=== PATIENT | female | born 1945 | race Caucasian/White ===

== ENCOUNTER → 2020-06-30 08:08 | Outpatient (CLI) | payer MEDICARE, OTHER, SELFPAY ==
--- NOTE | ~2020-06-30 | MM_ITS ---
EXAMINATION: MM diagnostic orly BI w maynor HISTORY: Breast tenderness. No discrete palpable abnormality. TECHNIQUE: Additional 3-D tomosynthesis images of the breasts were performed and synthetic 2-D images were generated. CAD analysis was submitted and interpreted. COMPARISON: 01/24/2016 BREAST PARENCHYMAL COMPOSITION: Breast composed of scattered areas of fibroglandular density. FINDINGS: There are no suspicious masses, calcifications or architectural distortion in either breast to suggest malignancy. IMPRESSION: 1. No mammographic evidence for malignancy in either breast. 2. Routine yearly screening mammogram and regular clinical breast examination are recommended. BI-RADS Category 1: Negative Reviewed, dictated and finalized at location A. TENDER IMPRESSION: 1. No mammographic evidence for malignancy in either breast. 2. Routine yearly screening mammogram and regular clinical breast examination a re recommended. BI-RADS Category 1: Negative
== END ==
PROVIDERS: PCP Family Medicine; Visit Provider Nurse Practitioner
DX: N64.4 Mastodynia (principal)
CPT/HCPCS: 77062; 77066; G0279

== ENCOUNTER → 2020-08-12 10:21 | Outpatient (CLI) | payer MEDICARE, OTHER, SELFPAY ==
--- NOTE | ~2020-08-12 | DEXA_ITS ---
Bone Density Report Name: Dee Benoit Age: 74 Sex: Female Ethnicity: White Date of : 1945 Indication: postmenopausal; screening for osteoporosis; height loss; asthma or emphysema; hysterectomy; Referring Provider: ESPERANZA, HERACLIO Study: Bone densitometry was performed. Exam Date: August 12, 2020 Accession number: [id number] Bone Density: Region BMD T-score Z-score Classification AP Spine (L1, L2, L3) 0.781 -2.2 0.2 Osteopenia Femoral Neck (Left) 0.536 -2.8 -0.7 Osteoporosis Total Hip (Left) 0.745 -1.6 0.2 Osteopenia Femoral Neck (Right) 0.541 -2.8 -0.7 Osteoporosis Total Hip (Right) 0.705 -1.9 -0.2 Osteopenia Total Hip Mean 0.725 -1.8 0.0 Osteopenia World Health Organization criteria for BMD impression classify patients as: Normal (T-score at or above -1.0), Osteopenia (T-score between -1.0 and -2.5), or Osteoporosis (T-score at or below -2.5). 10-year Fracture Risk: FRAX not reported because: Some T-score for Spine Total or Hip Total or Femoral Neck at or below -2.5 Clinical Information Provided by Patient: Has used the following medications: Vitamin D, Calcium Has the following medical conditions: Asthma or Emphysema, Hysterectomy Patient maximum height was 66 Menopause Age: 40 No regular weight bearing exercise Does not regularly consume dairy products Drinks caffeinated beverages Onset of menses at age 14 Number of children 1 Missed period for more than 6 months in a row Impression: The patient has osteoporosis, based on the Left Femoral Neck T-score. Discussion: INCREASED RISK OF FRACTURE. BONE DENSITY IS UNDESIRABLY LOW AT ONE OR MORE SKELETAL SITES, CONSISTENT WITH POSTMENOPAUSAL OSTEOPOROSIS. This patient's lowest T-score meets the World Health Organization's (WHO) criteria for osteoporosis at one or more sites (T-score -2.5 or below). In untreated patients, the risk of osteoporotic fracture increases approximately two-fold for each 1.0 SD decrease in T-score. Low bone density is not the only risk factor for fracture; also consider factors such as patient's age, frailty or poor health, risk of falling, risk of injury, previous osteoporotic fracture, family history of osteoporosis, cigarette smoking, low body weight, etc. Not everyone with low bone mineral density has osteoporosis; osteomalacia and other metabolic bone disorders should also be considered. Patients who have osteoporosis should be evaluated for specific diseases and conditions (secondary causes) that may cause or contribute to bone loss. The [place] Association [employer] Clinical Endocrinologists (AACE) and National Osteoporosis Foundation (NOF) recommend pharmacologic intervention for all postmenopausal women whose T-score is in this range. The patient should follow a healthful lifestyle (good nutrition with adequat
== END ==
PROVIDERS: PCP Family Medicine; Visit Provider Nurse Practitioner
DX: Z78.0 Asymptomatic menopausal state (principal); M81.0 Age-related osteoporosis without current pathological fracture; M85.851 Other specified disorders of bone density and structure, right thigh; M85.852 Other specified disorders of bone density and structure, left thigh
CPT/HCPCS: 77080

== ENCOUNTER → 2021-07-21 10:56 | Outpatient (CLI) | payer MEDICARE, OTHER, SELFPAY ==
--- NOTE | ~2021-07-21 | MM_ITS ---
EXAMINATION: MM screening olry BI w maynor HISTORY: Screening TECHNIQUE: Craniocaudal and mediolateral oblique 3-D tomosynthesis images were obtained and synthetic 2-D images were generated. CAD analysis was submitted and interpreted. COMPARISON: Comparison to multiple prior studies sequentially, with oldest reviewed study dated 01/23. BREAST PARENCHYMAL COMPOSITION: There are scattered areas of fibroglandular density. FINDINGS: There is no evidence of suspicious mass, calcification, or architectural distortion to sugg est malignancy in either breast. There has been no suspicious interval change. IMPRESSION: 1. No mammographic evidence of malignancy. 2. Recommend routine screening mammography in one year. BI-RADS Category 1: Negative Reviewed, dictated and finalized at location A. 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
== END ==
PROVIDERS: PCP Family Medicine; Visit Provider Nurse Practitioner
DX: Z12.31 Encounter for screening mammogram for malignant neoplasm of breast (principal)
CPT/HCPCS: 77063; 77067

== ENCOUNTER → 2021-10-24 13:09 | Outpatient (CLI) | payer MEDICARE, OTHER, SELFPAY ==
--- NOTE | ~2021-10-24 | MR_ITS ---
EXAMINATION: MR lumbar spine wo con DATE: 10/24/2021 13:56 INDICATION: Lumbar radiculopathy. TECHNIQUE: Magnetic resonance imaging (MRI) of the lumbar spine was performed without intravenous con trast. Sequences included sagittal T2-weighted FSE, sagittal T2-weighted FS FSE, sagittal T1-weighted FSE, and axial T2-weighted FSE. COMPARISON: Lumbar spine MRI 12/01/2010 FINDINGS: There is 7 degrees levocurvature of lumbar spine. There are changes of anterior and posteri or fusion procedures at L5-S1 with discectomy, interbody device, and pedicle screws. Vertebral body h eights are normal. There is moderately decreased disc height at L4-L5 with endplate remodeling. The d istal spinal cord signal intensity is normal. The conus medullaris is at T12-L1. The following disc l evels are specifically discussed: L1-L2: The disc is bulging with superimposed right central extrusion. There is mild bilateral facet j oint osteoarthritis. There is mild bilateral neural foraminal stenosis. There is mild central canal s tenosis. L2-L3: The disc is bulging and has an annular fissure. There is mild right facet joint osteoarthritis . There is mild bilateral neural foraminal stenosis. There is mild central canal stenosis. L3-L4: The disc is bulging and has an annular fissure. There is mild bilateral facet joint osteoarthr itis. There is mild bilateral neural foraminal stenosis. There is mild central canal stenosis. L4-L5: The disc is bulging and has an annular fissure. There is severe bilateral facet joint osteoart hritis. There is moderate bilateral neural foraminal stenosis. There is mild central canal stenosis w ith posterior decompression. L5-S1: There is no facet joint hypertrophy. There is no neural foraminal stenosis. There is no centra l canal stenosis. There are changes of posterior decompression. IMPRESSION: 1. Moderate lumbar spondylosis, worsened from 12/01/2010. 2. Anterior and posterior fusion procedures at L5-S1. Reviewed, dictated and finalized at location A.
== END ==
PROVIDERS: PCP Family Medicine; Visit Provider Nurse Practitioner Adult Health
DX: M54.16 Radiculopathy, lumbar region (principal); M47.816 Spondylosis without myelopathy or radiculopathy, lumbar region; Z98.1 Arthrodesis status
CPT/HCPCS: 72148

== ENCOUNTER → 2021-10-31 13:43 | Outpatient (CLI) | payer MEDICARE, OTHER, SELFPAY ==
--- NOTE | ~2021-10-31 | XR_ITS ---
EXAMINATION: XR hip RT min 2V DATE: 10/31/2021 14:01 INDICATION: Right hip pain. TECHNIQUE: 2 views of right hip were obtained. COMPARISON: None. FINDINGS: Bone alignment is normal. No fracture. There are changes of anterior and posterior fusion p rocedures at L5-S1. There is mild right hip osteoarthritis. IMPRESSION: 1. Mild right hip osteoarthritis. Reviewed, dictated and finalized at location B.
== END ==
PROVIDERS: PCP Family Medicine; Visit Provider Nurse Practitioner Adult Health
DX: M25.551 Pain in right hip (principal); M16.11 Unilateral primary osteoarthritis, right hip
CPT/HCPCS: 73502

== ENCOUNTER 2022-06-16 08:09 | Outpatient (CLI) | payer MEDICARE, OTHER, SELFPAY ==
[2022-06-16 19:17] LABS: Basophils Absolute Auto 0.1 K/mm3 (0.0-0.1); Basophils Percent Auto 0.6 % (0.2-1.2); Eosinophils Absolute Auto 0.2 K/mm3 (0-0.3); Eosinophils Percent Auto 2.3 % (0-4.4); Immature Granulocyte Absolute 0.02 K/mm3 (0.00-0.031); Immature Granulocyte Percent A 0.2 % (0-0.5); Lymphocytes Absolute Auto 2.93 K/mm3 (0.9-3.2); Lymphocytes Percent Auto 36.2 % (18.3-44.2); Mean Corpuscular HGB Conc 30.8 g/dl (32-36); Mean Corpuscular Hemoglobin 28.5 pg (26-34); Mean Corpuscular Volume 92.6 fl (80-100); Mean Platelet Volume 9.9 fl (7.4-10.4); Monocytes Absolute Auto 0.6 K/mm3 (0.1-0.6); Monocytes Percent Auto 7.8 % (2.6-8.5); Neutrophils Absolute Auto 4.3 K/mm3 (1.3-6.7); Neutrophils Percent Auto 52.9 % (45.5-73.1); Platelet Count Result 377 k/mm3 (150-375); Red Blood Count 4.21 M/mm3 (4.2-5.4); Red Cell Distribution Width 14.1 % (11.5-14.5); White Blood Count 8.1 K/mm3 (4.5-10.0)
[2022-06-16 19:21] LABS: Alanine Aminotransferase 18 U/L (6-35); Alkaline Phosphatase 65 U/L (38-126); Anion Gap 0 mmol/L (8-16); Aspartate Amino Transferase 72 U/L (14-36); Bilirubin,Total 0.3 mg/dL (0.2-1.3); Blood Urea Nitrogen 15 mg/dL (7-17); Calcium 9.1 mg/dL (8.4-10.2); Carbon Dioxide 36 mmol/L (22-30); Chloride 104 mmol/L (98-107); Cholesterol 175 mg/dL (0-200); Estimated Glomerular Filt Rate > 60; Glucose 102 mg/dL (65-110); HDL Direct 26 mg/dL; Sodium 140 mmol/L (137-145); Triglycerides 196 mg/dL (<150)
[2022-06-16 19:32] LABS: LDL Cholesterol Direct 105 mg/dL
[2022-06-16 19:36] LABS: Vitamin D 25 Hydroxy 90.6 ng/mL
[2022-06-16 19:47] LABS: Microalbumin Urine Random 55.1 mg/L (0-16.7)
[2022-06-16 20:18] LABS: Creatinine Urine 381.4 mg/dL; MALB Creatinine Ratio 14.4 mg/g (0-30)
[2022-06-16 20:31] LABS: Hemoglobin A1C 6.4 % (<5.7)
== END 2022-06-16 08:10 | disposition home or self-care (01) ==
LOC: ANHGOSHLAB 08:12
PROVIDERS: PCP Family Medicine; Visit Provider Physician Assistant
DX: E11.9 Type 2 diabetes mellitus without complications (principal); M81.0 Age-related osteoporosis without current pathological fracture; I10 Essential (primary) hypertension; F41.1 Generalized anxiety disorder; Z95.5 Presence of coronary angioplasty implant and graft; Z11.59 Encounter for screening for other viral diseases; Z79.899 Other long term (current) drug therapy
CPT/HCPCS: 36415; 80053; 80061; 82043; 82306; 83036; 84443; 85025

== ENCOUNTER 2022-09-01 08:12 | Outpatient (CLI) | payer MEDICARE, OTHER, SELFPAY ==
[2022-09-01 09:21] LABS: Basophils Absolute Auto 0.1 K/mm3 (0.0-0.1); Basophils Percent Auto 0.7 % (0.2-1.2); Eosinophils Absolute Auto 0.2 K/mm3 (0-0.3); Eosinophils Percent Auto 2.1 % (0-4.4); Hematocrit 42.7 % (37.0-47.0); Hemoglobin 13.5 g/dL (12.0-15.0); Immature Granulocyte Absolute 0.02 K/mm3 (0.00-0.031); Immature Granulocyte Percent A 0.3 % (0-0.5); Lymphocytes Absolute Auto 2.61 K/mm3 (0.9-3.2); Lymphocytes Percent Auto 34.8 % (18.3-44.2); Mean Corpuscular HGB Conc 31.6 g/dl (32-36); Mean Corpuscular Hemoglobin 28.6 pg (26-34); Mean Corpuscular Volume 90.5 fl (80-100); Mean Platelet Volume 9.9 fl (7.4-10.4); Monocytes Absolute Auto 0.5 K/mm3 (0.1-0.6); Monocytes Percent Auto 7.2 % (2.6-8.5); Neutrophils Absolute Auto 4.1 K/mm3 (1.3-6.7); Neutrophils Percent Auto 54.9 % (45.5-73.1); Platelet Count Result 322 k/mm3 (150-375); Red Blood Count 4.72 M/mm3 (4.2-5.4); Red Cell Distribution Width 14.5 % (11.5-14.5); White Blood Count 7.5 K/mm3 (4.5-10.0)
[2022-09-01 09:32] LABS: Alanine Aminotransferase 24 U/L (6-35); Albumin Level 4.5 g/dL (3.5-5.1); Alkaline Phosphatase 77 U/L (38-126); Anion Gap 5 mmol/L (8-16); Aspartate Amino Transferase 30 U/L (14-36); Bilirubin,Total 0.5 mg/dL (0.2-1.3); Blood Urea Nitrogen 15 mg/dL (7-17); Calcium 9.4 mg/dL (8.4-10.2); Carbon Dioxide 31 mmol/L (22-30); Chloride 103 mmol/L (98-107); Cholesterol 223 mg/dL (0-200); Estimated Glomerular Filt Rate > 60; Glucose 103 mg/dL (65-110); HDL Direct 39 mg/dL; Potassium 4.4 mmol/L (3.4-5.0); Sodium 139 mmol/L (137-145); Triglycerides 197 mg/dL (<150)
[2022-09-01 09:43] LABS: LDL Cholesterol Direct 129 mg/dL
[2022-09-06 04:14] LABS: Gastrin <15 pg/mL (<=100)
== END 2022-09-01 08:13 | disposition home or self-care (01) ==
PROVIDERS: PCP Family Medicine; Visit Provider Physician Assistant
DX: I10 Essential (primary) hypertension (principal); E78.5 Hyperlipidemia, unspecified; I25.118 Atherosclerotic heart disease of native coronary artery with other forms of angina pectoris; I45.10 Unspecified right bundle-branch block; K44.9 Diaphragmatic hernia without obstruction or gangrene; K21.00 Gastro-esophageal reflux disease with esophagitis, without bleeding
CPT/HCPCS: 36415; 80053; 80061; 82941; 85025

== ENCOUNTER 2022-10-10 08:40 | Outpatient (CLI) | payer MEDICARE, OTHER, SELFPAY ==
--- NOTE | ~2022-10-10 | CT_ITS ---
CT of the Abdomen and Pelvis: Indication: Abdominal pain Technique: 2.5 mm axial scans were obtained through the abdomen and pelvis following intravenous adm inistration of 100 cc of Omnipaque 350. Dose reduction technique was used on this scan by utilizing a utomated exposure control and iterative reconstruction technique. The dose-length product (DLP) was 6 01.68 mGy-cm. Findings: Scans through the lung bases demonstrate 5 mm semisolid right middle lobe pulmonary nodule (axial image 5). The liver, spleen, pancreas, adrenals and kidneys are within normal limits.. Cholecystectomy clips ar e present. There are atherosclerotic calcifications of the aorta. No lymphadenopathy. No bowel obstruction or bowel wall thickening. There is no evidence to suggest acute appendicitis. Sm all fat-containing umbilical hernia noted. Images through the pelvis were performed. Urinary bladder unremarkable. Patient is post hysterectomy. No pelvic mass seen. No ascites. Impression: Small fat-containing umbilical hernia. 5 mm semisolid nodule in the right middle lobe. According to Fleischner Society criteria, no further follow-up is required. Reviewed, dictated and finalized at location . Impression: Small fat-containing umbilical hernia. 5 mm semisolid nodule in the right middle lobe. According to Fleischner Society criteria, no further follow-up is required.
[2022-10-10 09:17] LABS: Estimated Glomerular Filt Rate 54
== END 2022-10-10 08:41 | disposition home or self-care (01) ==
LOC: ANHIMG 08:42
PROVIDERS: PCP Nurse Practitioner Family; Visit Provider Nurse Practitioner
DX: R10.13 Epigastric pain (principal); K42.9 Umbilical hernia without obstruction or gangrene; R91.1 Solitary pulmonary nodule
CPT/HCPCS: 74177; Q9967

== ENCOUNTER 2023-03-29 07:15 | Outpatient (RCR) | payer MEDICARE, OTHER, SELFPAY | END 2023-03-29 10:02 | disposition home or self-care (01) | LOC: ANHCPREHAB 07:15 | PROVIDERS: PCP Family Medicine; Visit Provider Internal Medicine | DX: Z95.5 Presence of coronary angioplasty implant and graft (principal) | CPT/HCPCS: 93798 ==

== ENCOUNTER 2023-04-26 00:20 | Observation (INO) | payer MEDICARE, OTHER, SELFPAY ==
[2023-04-26] VITALS (21 sets, daily range): BP systolic 112–176; BP diastolic 57–84; PULSE 44–67; RESP 12–18; TEMP 36.2–36.4; O2SAT 93–100; BMI 26.6
--- NOTE | 2023-04-26 | EST_ITS ---
Patient Info Name: Dee Benoit Age: 77 years : 1945 Gender: Female Ht: 65 in Wt: 154 lbs BSA: 1.80 m2 HR: 52 bpm BP: 137 / 72 mmHg Heart Rhythm: Sinus Rhythm Exam Date: 04/26/2023 1:30 PM Exam Location: [facility] Stress Patient Status: Outpatient Admit Date: 04/26/2023 Staff Ordering Physician: Bree Peterson MD Attending Provider: Abram Henry MD Exercise Technologist: Anju Hay CT Nurse: Karen Wheeler APN Exam Type: CA stress test treadmill w NM Study Info Indications R07.89 - Other chest pain A nuclear stress test was performed. Summary 1. No exercise-induced chest discomfort. 2. Normal heart rate response to exercise. 3. Good exercise tolerance. 4. No abnormal ST-T wave changes. 5. Nuclear test results to follow. Protocol: [facility] ECG Details Stage: REST Duration (min): 1 min : 59 sec Speed (mph): 0.0 Grade (%): 0 HR (bpm): 57 SBP (mmHg): 137 DBP (mmHg): 72 METS: --- Stage: REST Duration (min): 8 min : 9 sec Speed (mph): 0.0 Grade (%): 0 HR (bpm): 60 SBP (mmHg): 137 DBP (mmHg): 72 METS: --- Stage: STAGE 1 Duration (min): 1 min : 0 sec Speed (mph): 1.7 Grade (%): 10 HR (bpm): 82 SBP (mmHg): 137 DBP (mmHg): 72 METS: --- Stage: STAGE 1 Duration (min): 2 min : 0 sec Speed (mph): 1.7 Grade (%): 10 HR (bpm): 89 SBP (mmHg): 137 DBP (mmHg): 72 METS: --- Stage: STAGE 1 Duration (min): 3 min : 0 sec Speed (mph): 1.7 Grade (%): 10 HR (bpm): 93 SBP (mmHg): 184 DBP (mmHg): 89 METS: --- Stage: STAGE 2 Duration (min): 1 min : 0 sec Speed (mph): 2.5 Grade (%): 12 HR (bpm): 99 SBP (mmHg): 184 DBP (mmHg): 89 METS: --- Stage: STAGE 2 Duration (min): 2 min : 0 sec Speed (mph): 2.5 Grade (%): 12 HR (bpm): 105 SBP (mmHg): 182 DBP (mmHg): 83 METS: --- Stage: STAGE 2 Duration (min): 3 min : 0 sec Speed (mph): 2.5 Grade (%): 12 HR (bpm): 113 SBP (mmHg): 182 DBP (mmHg): 83 METS: --- Stage: STAGE 3 Duration (min): 1 min : 0 sec Speed (mph): 3.4 Grade (%): 14 HR (bpm): 125 SBP (mmHg): 176 DBP (mmHg): 79 METS: --- Stage: STAGE 3 Duration (min): 1 min : 20 sec Speed (mph): 3.4 Grade (%): 14 HR (bpm): 128 SBP (mmHg): 176 DBP (mmHg): 79 METS: --- Stage: RECOVERY Duration (min): 0 min : 39 sec Speed (mph): 0.0 Grade (%): 0 HR (bpm): 121 SBP (mmHg): 176 DBP (mmHg): 79 METS: --- Stage: RECOVERY Duration (min): 1 min : 39 sec Speed (mph): 0.0 Grade (%): 0 HR (bpm): 103 SBP (mmHg): 176 DBP (mmHg): 79 METS: --- Stage: RECOVERY Duration (min): 2 min : 39 sec Speed (mph): 0.0 Grade (%): 0 HR (bpm): 83 SBP (mmHg): 176 DBP (mmHg): 79 METS: --- Stage: RECOVERY Duration (min): 3 min : 39 sec Speed (mph): 0.0 Grade (%): 0 HR (bpm): 80
--- NOTE | ~2023-04-26 | NM_ITS ---
EXAMINATION: NM stress w perf spect multi DATE: 04/26/2023 14:30 INDICATION: Chest pain TECHNIQUE: Rest images were obtained following intravenous administration of 10.0 mCi Tc99m tetrofosm in ([employer]). The patient performed an exercise activity. At peak exercise, 32.7 mCi Tc99m tetrofosmi n ([employer]) was administered intravenously, and stress images were obtained. Data was reconstructed i nto short axis and horizontal and vertical long axis SPECT images. Gated SPECT images were also obtai wolf. COMPARISON: None. FINDINGS: There is normal left ventricular perfusion without definite evidence of reversible or fixed perfusion abnormality to suggest ischemia or infarction. There is normal left ventricular chamber size, wall motion and ejection fraction. Left ventricular ejection fraction measures >70%. IMPRESSION: 1. Normal myocardial perfusion at rest and during stress. 2. Left ventricular ejection fraction measuring >70%. Reviewed, dictated and finalized at location A.
--- NOTE | ~2023-04-26 | XR_ITS ---
EXAMINATION: XR chest 2V DATE: 04/26/2023 00:53 INDICATION: Chest pain. TECHNIQUE: Frontal and lateral views of the chest were obtained. COMPARISON: Chest 2 views 12/07/2022 FINDINGS: There is mild atelectasis versus scarring at left lung base. No pleural effusion or pneumot horax. The heart size is normal. There are bilateral shoulder arthroplasties. Surgical clips in the r ight upper quadrant are likely from cholecystectomy. IMPRESSION: 1. Mild atelectasis versus scarring at left lung base. Reviewed, dictated and finalized at location E.
--- NOTE | 2023-04-26 00:21 | ECG_ITS ---
Measurements Intervals [facility] Rate: 50 P: 8 NC: 205 QRS: 28 QRSD: 125 T: 5 QT: 443 QTc: 408 Interpretive Statements SINUS BRADYCARDIA POSSIBLE RIGHT VENTRICULAR CONDUCTION DELAY [RSR (QR) IN V1/V2] COMPARED TO ECG 12/07/2022 12:37:22 NO SIGNIFICANT CHANGES Electronically Signed On 04-26-2023 12:56:19 CDT by Trina Martin M.D.
[2023-04-26 00:42] LABS: Basophils Percent Auto 0.4 % (0.2-1.2); Eosinophils Absolute Auto 0.2 K/mm3 (0-0.3); Eosinophils Percent Auto 2.2 % (0-4.4); Hematocrit 39.7 % (37.0-47.0); Hemoglobin 12.3 g/dL (12.0-15.0); Immature Granulocyte Absolute 0.02 K/mm3 (0.00-0.031); Immature Granulocyte Percent A 0.2 % (0-0.5); Lymphocytes Absolute Auto 4.61 K/mm3 (0.9-3.2); Lymphocytes Percent Auto 50.4 % (18.3-44.2); Mean Corpuscular Hemoglobin 28.7 pg (26-34); Mean Corpuscular Volume 92.5 fl (80-100); Mean Platelet Volume 10.2 fl (7.4-10.4); Monocytes Absolute Auto 0.7 K/mm3 (0.1-0.6); Monocytes Percent Auto 7.5 % (2.6-8.5); Neutrophils Absolute Auto 3.6 K/mm3 (1.3-6.7); Neutrophils Percent Auto 39.3 % (45.5-73.1); Platelet Count Result 264 k/mm3 (150-375); Red Blood Count 4.29 M/mm3 (4.2-5.4); Red Cell Distribution Width 13.9 % (11.5-14.5); White Blood Count 9.1 K/mm3 (4.5-10.0)
[2023-04-26 00:52] LABS: Partial Thromboplastin Time 24.1 SECONDS (22.3-36.8); Prothrombin Time 13.4 Seconds (11.1-14.7)
[2023-04-26 00:56] LABS: Alanine Aminotransferase 29 U/L (6-35); Albumin Level 4.2 g/dL (3.5-5.1); Alkaline Phosphatase 85 U/L (38-126); Anion Gap 4 mmol/L (8-16); Aspartate Amino Transferase 41 U/L (14-36); Bilirubin,Total 0.5 mg/dL (0.2-1.3); Blood Urea Nitrogen 16 mg/dL (7-17); Calcium 9.4 mg/dL (8.4-10.2); Carbon Dioxide 31 mmol/L (22-30); Chloride 104 mmol/L (98-107); Estimated CRCL calculation 41 ml/min; Estimated Glomerular Filt Rate > 60; Glucose 105 mg/dL (65-110); Lipase 306 U/L (23-300); Potassium 4.3 mmol/L (3.4-5.0); Sodium 139 mmol/L (137-145)
[2023-04-26 01:07] LABS: Troponin I < 0.012 ng/mL (0.000-0.034)
[2023-04-26] MEDS: ASPIRIN 81 MG CHEWABLE TABLET 324 MG PO (01:16)
--- NOTE | 2023-04-26 02:01 | ED.CHESTPAIN ---
HPI - Chest Pain General Chief Complaint: Chest Pain Stated Complaint: Chest pain, HTN, low HR Time Seen by Provider: 04/26/23 01:23 Source: patient and family () Limitations: no limitations History of Present Illness HPI narrative: Patient is a 77-year-old female present to the emergency department complaining of chest pain. Patient states the pain started around approximately 9 PM gradually, middle and left side of her chest, burning in the middle and aching on the left side, nonradiating, admits to history of this pain in the past when she had a heart attack which she describes as a few months ago and she is known to director of radio services Dr. Florez and admits to having a stent in her heart. Patient also notes that her blood pressure was up in the 170 systolic and her heart rate was slightly lower than it typically is. Patient denies any new or changed medications. Patient denies nausea, vomiting, diarrhea, melena, hematochezia, sore throat, nasal congestion, numbness, weakness, rash, vaginal bleeding, dysuria, hematuria, urinary frequency, urinary urgency, abdominal pain, cough, fever, recent injuries, recent illness, unilateral lower extremity swelling, history of blood clots. Patient has not tried anything for the pain and has not noticed anything making the pain better or worse, describes the pain is constant. Related Data Home Medications Medication Instructions Recorded Confirmed albuterol sulfate 90 mcg/actuation 1 puff inhalation PRN PRN 05/30/22 04/26/23 aerosol inhaler (ProAir HFA) Wheezing, SOB furosemide 20 mg tablet 20 mg PO DAILY 05/30/22 04/26/23 potassium chloride 10 mEq 10 tablet PO DAILY 05/30/22 04/26/23 tablet,extended release(part/cryst) ubidecarenone-omega 3-vit E 25 2 cap PO DAILY 05/30/22 04/26/23 mg-150 (90-60) mg-200 unit capsule (Co M-68-Hmbrqiz E-Fish Oil) cholecalciferol (vitamin D3) 50 50 mcg PO DAILY 04/26/23 04/26/23 mcg (2,000 unit) capsule (Vitamin D3) ezetimibe 10 mg tablet (Zetia) 10 mg PO HS 04/26/23 04/26/23 fluticasone 250 mcg-salmeterol 50 1 inh inhalation Q12H 04/26/23 04/26/23 mcg/dose blistr powdr for inhalation (Wixela Inhub) vitamin B complex 1 cap PO DAILY 04/26/23 04/26/23 Allergies Allergy/AdvReac Type Severity Reaction Status Date / Time levofloxacin Allergy Severe Hives Verified 04/26/23 09:53 codeine Allergy Unknown Hyperactive Verified 04/26/23 09:53 niacin Allergy Unknown Hives Verified 04/26/23 09:53 oxycodone Allergy Unknown Hallucinati Verified 04/26/23 09:53 ng Penicillins Allergy Unknown Hives Verified 04/26/23 09:53 adhesive tape AdvReac Intermediate Rash Verified 04/26/23 11:14 lorazepam AdvReac Unknown MAKES ME Verified 04/26/23 09:53 CRAZY morphine AdvReac Unknown MAKES ME Verified 04/26/23 09:53 SEE SPIDERS DIPHENHYDRAMINE HCL AdvReac Intermediate Jittery Uncoded 04/26/23 01:11 Review of Systems Review of Systems: A 10 system review of systems was completed on the patient and is negative except for what is stated in the HPI. Nursing and ancillary documentation was reviewed. [facility] Past Medical History Medical History Asthma CAD (coronary artery disease) Hx of mid LAD coronary stent placed Apr 2016. another overlapping stent prox to this 11/2022 Chronic pain Colon cancer screening Diverticulosis noted by colonoscopy Jul 2020 Epigastric pain Esophageal stricture Noted by EGD Jul 2020 Gastritis Antral gastritis noted by EGD Jul 2020 Generalized anxiety disorder HTN (hypertension), benign Low back pain Type 2 diabetes mellitus Surgical History Surgical History H/O section 1985 H/O shoulder replacement LEFT 2000, RIGHT 2001 H/O umbilical hernia repair H/O: hysterectomy 1985 History of appendectomy 2002 History of coronary artery stent placement History of fusion of lumbar
[2023-04-26] MEDS: SODIUM CHLORIDE 0.9% IV 500 ML 999 ML IV CONT (02:29)
[2023-04-26 02:53] LABS: Magnesium 2.3 mg/dL (1.6-2.3)
[2023-04-26 03:16] LABS: Influenza A QL RT-PCR Negative (Negative); Influenza B QL RT-PCR Negative (Negative); SARS-CoV-2 RNA PCR Negative (Negative)
[2023-04-26 03:31] LABS: D Dimer 0.45 ug/mL (<0.48)
[2023-04-26 04:17] LABS: Troponin I < 0.012 ng/mL (0.000-0.034)
[2023-04-26 04:36] LABS: Free T4 Free Thyroxine Reflex 0.95 ng/dL (0.78-2.19)
[2023-04-26] MEDS: ATROPINE SULFATE 1 MG/10 ML SYRINGE IV PUSH (04:59)
[2023-04-26 05:25] LABS: Total Triiodothyronine (T3) 1.47 NG/ML (0.97-1.69)
[2023-04-26 06:57] LABS: Troponin I 0.013 ng/mL (0.000-0.034)
[2023-04-26] MEDS: SODIUM CHLORIDE 0.9% IV 1,000 ML 125 ML IV CONT (07:17)
--- NOTE | 2023-04-26 09:26 | PC.NURSE ---
Care coordination came out of pts room and stated the pt removed her monitors, and turned them off because they were beeping. Pt has been educated on importance of keeping her monitors on.
--- NOTE | 2023-04-26 09:44 | ADMGEN ---
This patient, Dee Benoit, was admitted to Intensive Care Unit-6. Patient/family oriented to hospital policies and general routines including ID bracelet, bed and alarms, visiting hours, pain management, procedures, bathroom and other care routines, personal items, smoking policy, room service/diet, and visiting hours. Information on how to activate the Rapid Response Team has been discussed. Patient/Family are encouraged to report perceived risks to care and to ask questions if they do not understand what they are told or what they should do.
--- NOTE | 2023-04-26 11:25 | PC.NURSE ---
Notified Dr. Peterson of pt's orthostatic BP's. New order stop IV fluids.
--- NOTE | 2023-04-26 12:45 | PC.NURSE ---
Pt to nuclear medicine via wheel chair for Feliciano.
--- NOTE | 2023-04-26 14:23 | PM.CNCAR ---
Assessment and Plan Assessment and plan (1) Chest pain of uncertain etiology: Code(s): R07.9 - Chest pain, unspecified Status: Acute Assessment and Plan: Patient had at least 3 hours of chest discomfort, but normal troponins and no EKG changes suggesting this is noncardiac. She does have history of GERD NSAID that no medicine has been able to help. --stress cardiolite showed no ischemia, good LV function, good exercise tolerance. --okay for discharge from my point of view --consider the addition of high-dose PPI, such as omeprazole 20 mg b.i.d. (2) Bradycardia, sinus: Code(s): R00.1 - Bradycardia, unspecified Status: Acute Assessment and Plan: Patient noted to have bradycardia, which I think is an incidental finding not related to her chest pain. Good heart rate response to exercise I think this is asymptomatic but she and are quite concerned about it and find abnormal. --reassurance; this degree of bradycardia was not alarming. --reduce bisoprolol to 2.5 mg daily. --call if problems (3) CAD (coronary artery disease): Code(s): I25.10 - Atherosclerotic heart disease of [place] coronary artery without angina pectoris Status: Acute Assessment and Plan: History of Left anterior descending stent November 2022. --stress test today showed normal perfusion and good ejection fraction. --continue aspirin, clopidogrel, ezetimibe, REpatha etc. History of Present Illness History of Present Illness Consult date/time: 04/26/23 14:23 Reason For Visit: chest pain,symptomatic bradycardia Narrative: Dee Benoit is a 77-year-old female whom we are asked to see at the request of Dr. Peterson for advice and opinion regarding her symptomatic bradycardia consultation. The patient has a history of CAD and prior mid Left anterior descending stent. She was hospitalized in November for a non-STEMI. She had a 99% stenosis proximal to the Left anterior descending stent and another stent was placed overlapping this 1. She has been followed by Dr. Florez. She completed cardiac rehab and is continuing to exercise at home with no problems. The patient does have mild substernal chest discomfort at times when she is anxious or stressed. Yesterday evening while watching TV she started having a dull discomfort in the middle of her chest radiating slightly to the left parasternal area. Her blood pressure 1 up to 172/70, heart rate declined in the 70s and she felt her heart pounding in her head. She tried a back pain pill with no improvement. She did not try nitroglycerin as she was afraid her heart rate would drop even further. This lasted from 9:00 p.m. to 12:00 p.m. and she was scared that she might have another heart attack so came to the emergency room. Today she feels a little achy and nauseated with some slight shortness of breath but better. She does have a history of dizziness and vertigo but as mentioned she can not exercise well with no particular problems. She has a history of GERD and states that she has tried probiotics and prescription medicines and nothing has helped. On telemetry her heart rate ranges from 40s to 60s. NSR. Troponins negative x3. TSH mildly elevated at 3.8. 04/26/2023 EKG at 12:27 a.m.: Sinus bradycardia rate 50, first-degree AV block, RBBB, no acute ischemic changes. Personally reviewed. Review of cardiac rehab note from 03/21/2023 shows heart rate 58-97 ppm. Review of Systems Constitutional: Constitutional: Denies fever(s) Eyes: Eyes: Reports no additional eye complaints ENT: Denies epistaxis Cardiovascular: Cardiovascular: Reports chest pain, Denies pedal edema, Denies lightheadedness and Denies dyspnea Respiratory: Respiratory: Denies chest congestion and Reports dyspnea Gastrointestinal: Gastrointestinal: Denies abdominal pain, Denies hematochezia and Reports nausea Genitourinary: Genitourinary: Denies hematuria Musculoskeletal: Musculoskeletal: Repo
--- NOTE | 2023-04-26 14:36 | PC.NURSE ---
Pt returned from nuclear medicine via wheelchair. No issues noted
--- NOTE | 2023-04-26 15:02 | PM.IMHP ---
H&P: HPI History of Present Illness Date/Time: 04/26/23 15:02 Chief Complaint: chest pain Narrative: 77 y o F with PMH of CAD, HTN, DM2 who presented to the ER on account of chest pain. Patient noted she started having chest pressure yesterday at about 930 pm, described substernal, intermittent, 6/10 associated with lightheadedness and SOB. Denies any LOC, abd pain, vomiting or focal weakness. ER Eval notable EKG showed sinus bradycardia, 1st Degree AVB, with RBBB, CXR no acute findings. Troponin negative, HR in 40s to 50s. Review of Systems Review of Systems: All systems reviewed & are unremarkable except as noted in HPI and below PMFSH Past Medical History Medical History Asthma CAD (coronary artery disease) Hx of mid LAD coronary stent placed Apr 2016. another overlapping stent prox to this 11/2022 Chronic pain Colon cancer screening Diverticulosis noted by colonoscopy Jul 2020 Epigastric pain Esophageal stricture Noted by EGD Jul 2020 Gastritis Antral gastritis noted by EGD Jul 2020 Generalized anxiety disorder HTN (hypertension), benign Low back pain Type 2 diabetes mellitus Surgical History Surgical History H/O section 1984 H/O shoulder replacement LEFT 2000, RIGHT 2001 H/O umbilical hernia repair H/O: hysterectomy 1984 History of appendectomy 2002 History of coronary artery stent placement History of fusion of lumbar spine L5-S1 History of knee replacement RIGHT 1991, LEFT 2002 Hx of cholecystectomy ~2002 Family History Family History Mother Hypertension Family history of cardiovascular disease Cerebrovascular accident Father Hypertension Family history of cardiovascular disease Sibling Hypertension Family history of cardiovascular disease Other Diabetes mellitus Family history of arthritis Social History Social History Social History: Patient lives with and dtr. Lifelong nonsmoker but exposed to second hand smoke. Rare alcohol use. No drug use. Full code. Nominates her and dtr to be the ones to make decisions for her if she is unable. Smoking status: Never smoker Alcohol intake: never Drinks per week: 1 Substance use: never Substance use type: does not use Lack of Transportation: No Lack of Food: Never True Current Housing: I Have Housing Concerned About Future Housing: No Difficulty Paying Gas/Electric Bills: No Difficulty Paying for Meds: No Currently Unemployed: No Education: High School Diploma/GED Difficulty w/ Childcare or Family Care: No Spiritual care concerns: No Meds Home Medications and Allergies Home Medications Medication Instructions Recorded Confirmed Type albuterol sulfate 90 mcg/actuation 1 puff inhalation PRN PRN 05/30/22 04/26/23 History aerosol inhaler (ProAir HFA) Wheezing, SOB bisoprolol fumarate 5 mg tablet 5 mg PO DAILY 05/30/22 04/26/23 History furosemide 20 mg tablet 20 mg PO DAILY 05/30/22 04/26/23 History potassium chloride 10 mEq 10 tablet PO DAILY 05/30/22 04/26/23 History tablet,extended release(part/cryst) ubidecarenone-omega 3-vit E 25 2 cap PO DAILY 05/30/22 04/26/23 History mg-150 (90-60) mg-200 unit capsule (Co Y-37-Ryrrixr E-Fish Oil) aspirin 81 mg chewable tablet 81 mg PO DAILY@0800 #30 tabs 12/08/22 04/26/23 Rx (Children's Aspirin) nitroglycerin 0.4 mg sublingual 0.4 mg sublingual Q5M PRN chest 12/22/22 04/26/23 Rx tablet pain #30 tabs alprazolam 0.5 mg tablet (Xanax) 0.5 mg PO TID PRN anxiety #90 tabs 01/29/23 04/26/23 Rx clopidogrel 75 mg tablet 75 mg PO DAILY #90 tabs 03/19/23 04/26/23 Rx diclofenac sodium 1 % topical gel 4 g topical QID 90 days #100 grams 03/28/23 04/26/23 Rx (Voltaren Arthritis Pain) cholec
--- NOTE | 2023-04-26 16:39 | PM.DS ---
DS: Admitting Diagnosis Discharge Date 04/26/23 Admitting Diagnosis Chest pain DS: Discharge Diagnosis Discharge Diagnosis (1) Chest pain of uncertain etiology: Code(s): R07.9 - Chest pain, unspecified Status: Acute (2) Bradycardia, sinus: Code(s): R00.1 - Bradycardia, unspecified Status: Acute DS: Summary Hospital Course Hospital Course: Patient was evaluated by Cardiology, stress test was unremarkable. Cardiology recommended decreasing Bystolic from 5-2.5 daily, and Protonix. Patient discharge home, follow with PCP 3-5 days, with Cardiology as instructed. Assessment and plan (1) Chest pain of uncertain etiology: ?Code(s): R07.9 - Chest pain, unspecified ?Status:?Acute (2) Bradycardia, sinus: ?Code(s): R00.1 - Bradycardia, unspecified ?Status:?Acute Plan Chest pain Nuclear stress test is unremarkable, Protonix recommended by Cardiology, of symptom may be non cardiac. Follow with Cardiology as instructed bradycardia Decrease the Bystolic to 2.5 mg per Cardiology. Continue follow-up with Cardiology. HTN Continue medications on Bystolic as above. DM2 Continue home regimen. Low back pain PRN pain control CAD s/p stents continue GDMT, on Bystolic as above. Asthma continue home bronchodilators Follow-up PCP in 3-5 days, follow up with Cardiology as instructed. Time Spent with Patient Time attestation: Total time spent providing and/or coordinating discharge services: DS: Data Data Completed and Pending Labs on day of discharge: Labs from last 24 hours 04/26/23 04/26/23 04/26/23 06:27 03:42 02:31 WBC RBC Hgb Hct MCV MCH MCHC RDW Plt Count MPV Immature Gran % (Auto) Neut % (Auto) Lymph % (Auto) [place] % (Auto) Eos % (Auto) Baso % (Auto) Lymph # (Auto) [place] # (Auto) Eos # (Auto) Baso # (Auto) Abs Immat Gran (auto) Absolute Neuts (auto) Absolute Nucleated RBC Nucleated RBC % PT INR APTT D-Dimer 0.45 Sodium Potassium Chloride Carbon Dioxide Anion Gap BUN Creatinine Estim Creat Clear Calc Estimated GFR Glucose Calcium Magnesium 2.3 Total Bilirubin AST ALT Alkaline Phosphatase Troponin I 0.013 < 0.012 Total Protein Albumin Lipase TSH (Reflex) 6.760 H Free T4 0.95 Total T3 1.47 Influenza A (RT-PCR) Negative Influenza B (RT-PCR) Negative SARS-CoV-2 RNA (RT-PCR) Negative 04/26/23 00:34 WBC 9.1 RBC 4.29 Hgb 12.3 Hct 39.7 MCV 92.5 MCH 28.7 MCHC 31.0 L RDW 13.9 Plt Count 264 MPV 10.2 Immature Gran % (Auto) 0.2 Neut % (Auto) 39.3 L Lymph % (Auto) 50.4 H [place] % (Auto) 7.5 Eos % (Auto) 2.2 Baso % (Auto) 0.4 Lymph # (Auto) 4.61 H [place] # (Auto) 0.7 H Eos # (Auto) 0.2 Baso # (Auto) 0.0 Abs Immat Gran (auto) 0.02 Absolute Neuts (auto) 3.6 Absolute Nucleated RBC 0.0 Nucleated RBC % 0.0 PT 13.4 INR 1.0 APTT 24.1 D-Dimer Sodium 139 Potassium 4.3 Chloride 104 Carbon Dioxide 31 H Anion Gap 4 L BUN 16 Creatinine 0.90 Estim Creat Clear Calc 41 Estimated GFR > 60 Glucose 105 Calcium 9.4 Magnesium Total Bilirubin 0.5 AST 41 H ALT 29 Alkaline Phosphatase 85 Troponin I < 0.012 Total Protein 7.0 Albumin 4.2 Lipase 306 H TSH (Reflex) Free T4 Total T3 Influenza A (RT-PCR) Influenza B (RT-PCR) SARS-CoV-2 RNA (RT-PCR) Discharge Plan Discharge Attending physician on discharge: Bree Peterson Consulting providers: Karen Wheeler Discharging Clinician: Bree Peterson Anticipated Discharge Date/Time: 04/26/23 16:35 Patient Disposition: Home, Self-Care Activity: as tolerated Diet: heart healthy Discharge Instructions: Your heart scan showed good blood flow to your kidneys. Call Dr. Florez's office for any problems: [phone] Reduce the bisoprolol 5 mg to mcfadden
== END 2023-04-26 17:21 | disposition home or self-care (01) ==
LOC: ANHED 04:59 → ANHICU 09:22 → ANH3MEDSUR 04-27 07:39 → ANHICU 04-27 07:39
PROVIDERS: Admitting Provider Internal Medicine; Emergency Provider Student in an Organized Health Care Education/Training Program; PCP Family Medicine; Visit Provider Internal Medicine
DX: R07.9 Chest pain, unspecified (principal); R00.1 Bradycardia, unspecified; I25.2 Old myocardial infarction; J45.909 Unspecified asthma, uncomplicated; I10 Essential (primary) hypertension; I25.10 Atherosclerotic heart disease of native coronary artery without angina pectoris; F41.1 Generalized anxiety disorder; Z20.822 Contact with and (suspected) exposure to COVID-19; E11.9 Type 2 diabetes mellitus without complications; K21.9 Gastro-esophageal reflux disease without esophagitis; G89.29 Other chronic pain; Z77.22 Contact with and (suspected) exposure to environmental tobacco smoke (acute) (chronic); Z95.5 Presence of coronary angioplasty implant and graft; Z79.82 Long term (current) use of aspirin; Z79.51 Long term (current) use of inhaled steroids; Z79.02 Long term (current) use of antithrombotics/antiplatelets; Z79.899 Other long term (current) drug therapy; Z82.49 Family history of ischemic heart disease and other diseases of the circulatory system; Z83.3 Family history of diabetes mellitus
CPT/HCPCS: 36415; 71046; 78452; 80053; 83690; 83735; 84439; 84443; 84480; 84484; 85025; 85380; 85610; 85730; 87636; 93005; 93017; 96361; 96374; 99285; A9270; A9502; G0378; J0461; J7030; J7040

== ENCOUNTER 2023-12-05 10:21 | Outpatient (CLI) | payer MEDICARE, OTHER, SELFPAY ==
--- NOTE | ~2023-12-05 | DEXA_ITS ---
Bone Density Report Name: TIERNEY MCGRAW Age: 78 Sex: Female Ethnicity: White Date of : 1945 Indication: osteopenia; asthma or emphysema; hysterectomy; Referring Provider: ESPERANZA, HERACLIO Study: Bone densitometry was performed. Exam Date: December 05, 2023 Accession number: [id number] Bone Density: Region BMD T-score Z-score Classification AP Spine (L1, L2, L3) 0.787 -2.1 0.4 Osteopenia Femoral Neck (Left) 0.532 -2.9 -0.6 Osteoporosis Total Hip (Left) 0.731 -1.7 0.2 Osteopenia Femoral Neck (Right) 0.528 -2.9 -0.7 Osteoporosis Total Hip (Right) 0.679 -2.2 -0.2 Osteopenia Total Hip Mean 0.705 -2.0 0.0 Osteopenia World Health Organization criteria for BMD impression classify patients as: Normal (T-score at or above -1.0), Osteopenia (T-score between -1.0 and -2.5), or Osteoporosis (T-score at or below -2.5). 10-year Fracture Risk: FRAX not reported because: Some T-score for Spine Total or Hip Total or Femoral Neck at or below -2.5 Previous Exams: Region Exam Age BMD T-score BMD Change BMD Change Date g/cm2 vs Baseline vs Previous AP Spine(L1, L2, L3) 12/05/2023 78 0.787 -2.1 0.006 0.006 08/12/2020 74 0.781 -2.2 Total Hip(Left) 12/05/2023 78 0.731 -1.7 -0.014 -0.014 08/12/2020 74 0.745 -1.6 Total Hip(Right) 12/05/2023 78 0.679 -2.2 -0.026 -0.026 08/12/2020 74 0.705 -1.9 *Denotes significance at 95% confidence level, LSC for AP Spine = 0.022 g/cm2, LSC for Total Hip = 0.027 g/cm2 Clinical Information Provided by Patient: Has used the following medications: Vitamin D Has the following medical conditions: Asthma or Emphysema, Hysterectomy Patient maximum height was 66.0 Menopause Age: 40 Drinks caffeinated beverages Onset of menses at age 14 Number of children 1 Missed period for more than 6 months in a row Impression: The patient has osteoporosis, based on the Left Femoral Neck T-score. No significant bone loss was observed. Discussion: INCREASED RISK OF FRACTURE. BONE DENSITY IS UNDESIRABLY LOW AT ONE OR MORE SKELETAL SITES, CONSISTENT WITH POSTMENOPAUSAL OSTEOPOROSIS. This patient's lowest T-score meets the World Health Organization's (WHO) criteria for osteoporosis at one or more sites (T-score -2.5 or below). In untreated patients, the risk of osteoporotic fracture increases approximately two-fold for each 1.0 SD decrease in T-score. Low bone density is not the only risk factor for fracture; also consider factors such as patient's age, frailty o
== END 2023-12-05 10:22 ==
LOC: MICIMG 10:23
PROVIDERS: PCP Family Medicine; Visit Provider Nurse Practitioner
DX: M81.0 Age-related osteoporosis without current pathological fracture (principal); M85.89 Other specified disorders of bone density and structure, multiple sites
CPT/HCPCS: 77080

== ENCOUNTER 2023-12-10 07:44 | Outpatient (CLI) | payer MEDICARE, OTHER, SELFPAY | END 2023-12-10 07:45 | disposition home or self-care (01) | LOC: ANHAUDASC 07:46 | PROVIDERS: PCP Family Medicine; Visit Provider Otolaryngology | DX: H90.3 Sensorineural hearing loss, bilateral (principal); H93.19 Tinnitus, unspecified ear; H60.90 Unspecified otitis externa, unspecified ear | CPT/HCPCS: 92557; 92567 ==

== ENCOUNTER 2023-12-25 15:16 | Emergency (ER) | payer MEDICARE, OTHER, SELFPAY ==
[2023-12-25] VITALS (8 sets, daily range): BP systolic 110–144; BP diastolic 50–69; PULSE 56–65; RESP 17–20; TEMP 36.8; O2SAT 98–100
--- NOTE | ~2023-12-25 | XR_ITS ---
XR chest 2V Ordering provider: Ricardo Gonzalez MD History: 78 years Female with . chest pain, DIZZINESS, SOB 4 DAYS . Comparison: None. FINDINGS: MEDIASTINUM: The cardiac silhouette is not enlarged. LUNGS: No infiltrates, effusions or pneumothorax. OTHER: No free air under the diaphragm. Bilateral shoulder arthroplasty. Degenerative changes of the spine. IMPRESSION: No acute cardiopulmonary pathology. Reviewed, dictated and finalized at location A.
--- NOTE | 2023-12-25 15:17 | ECG_ITS ---
Test Date: 2023-12-25 15:27:52 Measurements Intervals [place] Rate: 62 P: 39 MA: 188 QRS: 32 QRSD: 125 T: 5 QT: 415 QTc: 422 Interpretive Statements SINUS RHYTHM INCOMPLETE RIGHT BUNDLE BRANCH BLOCK No previous ECG available for comparison Electronically Signed On 12-26-2023 11:46:01 CDT by Darrick Galarza M.D.
[2023-12-25 15:40] LABS: Basophils Absolute Auto 0.1 K/mm3 (0.0-0.1); Basophils Percent Auto 0.6 % (0.2-1.2); Eosinophils Absolute Auto 0.2 K/mm3 (0-0.3); Eosinophils Percent Auto 1.8 % (0-4.4); Hematocrit 42.6 % (37.0-47.0); Hemoglobin 13.7 g/dL (12.0-15.0); Immature Granulocyte Absolute 0.02 K/mm3 (0.00-0.031); Immature Granulocyte Percent A 0.2 % (0-0.5); Lymphocytes Absolute Auto 4.53 K/mm3 (0.9-3.2); Lymphocytes Percent Auto 50.1 % (18.3-44.2); Mean Corpuscular HGB Conc 32.2 g/dl (32-36); Mean Corpuscular Hemoglobin 29.3 pg (26-34); Mean Platelet Volume 9.3 fl (7.4-10.4); Monocytes Absolute Auto 0.7 K/mm3 (0.1-0.6); Monocytes Percent Auto 7.4 % (2.6-8.5); Neutrophils Absolute Auto 3.6 K/mm3 (1.3-6.7); Neutrophils Percent Auto 39.9 % (45.5-73.1); Platelet Count Result 284 k/mm3 (150-375); Red Blood Count 4.68 M/mm3 (4.2-5.4); Red Cell Distribution Width 13.8 % (11.5-14.5); White Blood Count 9.1 K/mm3 (4.5-10.0)
[2023-12-25 15:50] LABS: Alanine Aminotransferase 30 U/L (6-35); Albumin Level 4.6 g/dL (3.5-5.1); Alkaline Phosphatase 82 U/L (38-126); Anion Gap 8 mmol/L (4-12); Aspartate Amino Transferase 38 U/L (14-36); Bilirubin,Total 0.5 mg/dL (0.2-1.3); Blood Urea Nitrogen 14 mg/dL (7-17); Calcium 9.4 mg/dL (8.4-10.2); Carbon Dioxide 30 mmol/L (22-30); Chloride 104 mmol/L (98-107); Estimated CRCL calculation 41 ml/min; Estimated Glomerular Filt Rate > 60; Glucose 108 mg/dL (65-110); Lipase 107 U/L (23-300); Partial Thromboplastin Time 25.4 Seconds (22.3-36.8); Potassium 4.3 mmol/L (3.4-5.0); Prothrombin Time 13.9 Seconds (11.1-14.7); Sodium 142 mmol/L (137-145)
[2023-12-25 16:00] LABS: Troponin I < 0.012 ng/mL (0.000-0.034)
--- NOTE | 2023-12-25 17:13 | ED.CHESTPAIN ---
HPI - Chest Pain General Chief Complaint: Chest Pain Stated Complaint: chest heaviness, sob, diarrhea Time Seen by Provider: 12/25/23 17:12 Source: patient and old records reviewed Mode of arrival: ambulatory Limitations: no limitations History of Present Illness HPI narrative: Patient is a 78-year-old female, with past medical history of asthma, CAD s/p stenting November 2022, anxiety, DM, who presents to the ED with c/o CP. Patient reports she was found to have fluid behind her right ear last Sunday, seen by ENT. Started on Azithromycin and steroids. She states she believes these medications have become sick. She reports since Sunday, she has had persistent midsternal and left-sided chest pain, described as a burning/aching/fluttering in her chest. she also reports having diarrhea, left-sided abdominal pain, and shortness of breath - worse with exertion. Patient follows with Dr. Florez and has seen him recently. Denies pain or swelling in legs, cough, congestion, fevers, N/V. Related Data Home Medications Medication Instructions Recorded Confirmed furosemide 20 mg tablet 20 mg PO DAILY 05/30/22 04/26/23 potassium chloride 10 mEq 10 tablet PO DAILY 05/30/22 04/26/23 tablet,extended release(part/cryst) cholecalciferol (vitamin D3) 50 50 mcg PO DAILY 04/26/23 04/26/23 mcg (2,000 unit) capsule (Vitamin D3) ezetimibe 10 mg tablet (Zetia) 10 mg PO HS 04/26/23 04/26/23 fluticasone 250 mcg-salmeterol 50 1 inh inhalation Q12H 04/26/23 04/26/23 mcg/dose blistr powdr for inhalation ([employer]) vitamin B complex 1 cap PO DAILY 04/26/23 04/26/23 bisoprolol fumarate 5 mg tablet 5 mg PO DAILY hyperten 11/12/23 isosorbide mononitrate 30 mg 30 mg PO DAILY 11/12/23 tablet,extended release 24 hr pantoprazole 40 mg tablet,delayed 40 mg PO HS PRN 11/12/23 release (Protonix) Allergies Allergy/AdvReac Type Severity Reaction Status Date / Time levofloxacin Allergy Severe Hives Verified 11/12/23 08:27 codeine Allergy Unknown Hyperactive Verified 11/12/23 08:27 niacin Allergy Unknown Hives Verified 11/12/23 08:27 oxycodone Allergy Unknown Hallucinati Verified 11/12/23 08:27 ng Penicillins Allergy Unknown Hives Verified 11/12/23 08:27 adhesive tape AdvReac Intermediate Rash Verified 11/12/23 08:27 lorazepam AdvReac Unknown MAKES ME Verified 11/12/23 08:27 CRAZY morphine AdvReac Unknown MAKES ME Verified 11/12/23 08:27 SEE SPIDERS DIPHENHYDRAMINE HCL AdvReac Intermediate Jittery Uncoded 11/12/23 08:27 Review of Systems Review of Systems: CONSTITUTIONAL: Denies fever, chills, or sweats. ENT: see HPI. CARDIOVASCULAR: See HPI. RESPIRATORY: See HPI. GASTROINTESTINAL: See HPI. NEUROLOGIC: Denies headache, dizziness, numbness, or weakness. All systems reviewed & are unremarkable except as noted in HPI and below PMFSH Past Medical History Medical History Asthma CAD (coronary artery disease) Hx of mid LAD coronary stent placed Apr 2016. another overlapping stent prox to this 11/2022 Chronic pain Colon cancer screening Diverticulosis noted by colonoscopy Jul 2020 Epigastric pain Esophageal stricture Noted by EGD Jul 2020 Gastritis Antral gastritis noted by EGD Jul 2020 Generalized anxiety disorder HTN (hypertension), benign Low back pain Type 2 diabetes mellitus Surgical History Surgical History H/O section 1984 H/O shoulder replacement LEFT 2000, RIGHT 2001 H/O umbilical hernia repair H/O: hysterectomy 1984 History of appendectomy 2002 History of coronary artery stent placement History of fusion of lumbar spine L5-S1 History of knee replacement RIGHT 1991, LEFT 2002 Hx of cholecystectomy ~2002 Family History Family History Mother Hypertension Family history of c
[2023-12-25] MEDS: IPRATROPIUM BR 0.02% INH SOLN 0.5 MG/2.5 ML VIAL INHALATION (17:25)
[2023-12-25] MEDS: ACETAMINOPHEN 500 MG TABLET 1000 MG PO (17:43)
[2023-12-25 17:58] LABS: NT Pro B Type Natriuretic Pept 98 pg/mL (19.9-100)
[2023-12-25 18:04] LABS: D Dimer 0.56 ug/mL (<0.48)
--- NOTE | 2023-12-25 18:19 | ECG_ITS ---
Test Date: 2023-12-25 18:34:16 Measurements Intervals [place] Rate: 57 P: -10 [place]: 172 QRS: 13 QRSD: 134 T: -11 QT: 451 QTc: 442 Interpretive Statements SINUS BRADYCARDIA RIGHT BUNDLE BRANCH BLOCK [120+ ms QRS DURATION, UPRIGHT V1, 40+ ms S IN I/aVL/V4/V5/V6] Compared to ECG 12/25/2023 15:27:52 NO SIGNIFICANT CHANGES Electronically Signed On 12-26-2023 11:49:02 CDT by Darrick Galarza M.D.
--- NOTE | 2023-12-25 18:19 | PC.NURSE ---
when getting 3 hour troponin, patient states they decline IV unless IV medications are ordered. 3 hour troponin taken from straight stick
[2023-12-25 18:49] LABS: Troponin I < 0.012 ng/mL (0.000-0.034)
[2023-12-25 18:57] LABS: Influenza A QL RT-PCR Negative (Negative); Influenza B QL RT-PCR Negative (Negative); RSV RNA, RT-PCR Negative (Negative); SARS-CoV-2 RNA PCR Negative (Negative)
[2023-12-25 19:18] LABS: Magnesium 2.3 mg/dL (1.6-2.3)
== END 2023-12-25 19:55 | disposition home or self-care (01) ==
PROVIDERS: Emergency Medicine; Emergency Provider Physician Assistant; PCP Family Medicine
DX: R07.89 Other chest pain (principal); R06.02 Shortness of breath; I25.10 Atherosclerotic heart disease of native coronary artery without angina pectoris; E11.9 Type 2 diabetes mellitus without complications; I10 Essential (primary) hypertension; Z20.822 Contact with and (suspected) exposure to COVID-19
CPT/HCPCS: 36415; 71046; 80053; 83690; 83735; 83880; 84484; 85025; 85380; 85610; 85730; 87637; 93005; 94640; 99284; A9270

== ENCOUNTER 2024-02-29 10:32 | Outpatient (CLI) | payer MEDICARE, OTHER, SELFPAY ==
--- NOTE | ~2024-02-29 | MM_ITS ---
EXAMINATION: MM screening orly BI w maynor HISTORY: Screening TECHNIQUE: Craniocaudal and mediolateral oblique 3-D tomosynthesis images were obtained and synthetic 2-D images were generated. CAD analysis was submitted and interpreted. COMPARISON: Comparison to multiple prior studies sequentially, with oldest reviewed study dated 01/23. BREAST PARENCHYMAL COMPOSITION: Not dense: There are scattered areas of fibroglandular density. FINDINGS: There is no evidence of suspicious mass, calcification, or architectural distortion to sugg est malignancy in either breast. There has been no suspicious interval change. IMPRESSION: 1. No mammographic evidence of malignancy. 2. Recommend routine screening mammography in one year. BI-RADS Category 1: Negative Reviewed, dictated and finalized at location B.
== END 2024-02-29 10:33 ==
LOC: MICIMG 10:34
PROVIDERS: PCP Family Medicine; Visit Provider Nurse Practitioner
DX: Z12.31 Encounter for screening mammogram for malignant neoplasm of breast (principal)
CPT/HCPCS: 77063; 77067

== ENCOUNTER 2024-07-01 08:11 | Outpatient (CLI) | payer MEDICARE, OTHER, SELFPAY ==
[2024-07-01 12:13] LABS: Basophils Absolute Auto 0.1 K/mm3 (0.0-0.1); Basophils Percent Auto 0.6 % (0.2-1.2); Eosinophils Absolute Auto 0.3 K/mm3 (0-0.3); Eosinophils Percent Auto 3.1 % (0-4.4); Hematocrit 41.9 % (37.0-47.0); Hemoglobin 13.1 g/dL (12.0-15.0); Immature Granulocyte Absolute 0.02 K/mm3 (0.00-0.031); Immature Granulocyte Percent A 0.2 % (0-0.5); Lymphocytes Absolute Auto 4.15 K/mm3 (0.9-3.2); Lymphocytes Percent Auto 47.9 % (18.3-44.2); Mean Corpuscular HGB Conc 31.3 g/dl (32-36); Mean Corpuscular Hemoglobin 29.4 pg (26-34); Mean Corpuscular Volume 93.9 fl (80-100); Mean Platelet Volume 10.1 fl (7.4-10.4); Monocytes Absolute Auto 0.6 K/mm3 (0.1-0.6); Monocytes Percent Auto 7.4 % (2.6-8.5); Neutrophils Absolute Auto 3.5 K/mm3 (1.3-6.7); Neutrophils Percent Auto 40.8 % (45.5-73.1); Platelet Count Result 275 k/mm3 (150-375); Red Blood Count 4.46 M/mm3 (4.2-5.4); Red Cell Distribution Width 13.7 % (11.5-14.5); White Blood Count 8.7 K/mm3 (4.5-10.0)
[2024-07-01 12:22] LABS: Alanine Aminotransferase 29 U/L (6-35); Albumin Level 4.2 g/dL (3.5-5.1); Alkaline Phosphatase 55 U/L (38-126); Anion Gap -2 mmol/L (4-12); Aspartate Amino Transferase 129 U/L (14-36); Bilirubin,Total 0.7 mg/dL (0.2-1.3); Blood Urea Nitrogen 17 mg/dL (7-17); Calcium 9.3 mg/dL (8.4-10.2); Carbon Dioxide 36 mmol/L (22-30); Chloride 108 mmol/L (98-107); Cholesterol 110 mg/dL (0-200); Estimated Glomerular Filt Rate 54; Glucose 94 mg/dL (65-110); HDL Direct 41 mg/dL; Potassium 4.3 mmol/L (3.4-5.0); Sodium 142 mmol/L (137-145); Triglycerides 173 mg/dL (<150)
[2024-07-01 12:33] LABS: LDL Cholesterol Direct 34 mg/dL
[2024-07-01 13:24] LABS: Hemoglobin A1C 6.1 % (<5.7)
== END 2024-07-01 08:12 | disposition home or self-care (01) ==
LOC: ANHGOSHLAB 08:12
PROVIDERS: PCP Family Medicine; Visit Provider Family Medicine
DX: I25.10 Atherosclerotic heart disease of native coronary artery without angina pectoris (principal); I10 Essential (primary) hypertension; K21.9 Gastro-esophageal reflux disease without esophagitis; R74.8 Abnormal levels of other serum enzymes; D72.829 Elevated white blood cell count, unspecified; R73.03 Prediabetes; K29.70 Gastritis, unspecified, without bleeding
CPT/HCPCS: 36415; 80053; 80061; 82607; 83036; 84443; 85025

== ENCOUNTER 2024-10-13 08:18 | Outpatient (CLI) | payer MEDICARE, OTHER, SELFPAY ==
--- OUTSIDE RECORDS SUMMARY | 2024-10-13 08:37 | XMS_ITS | Encounter Summary ---
Author Organization [facility] Care Team Providers Care Licensed Occupational Therapist Name Role Phone Dillon Lee MD Primary Care Provider [phone] Tere Quispe RN Unavailable [phone] Emily Ryan MA Unavailable Nohemi Ocampo LPN Unavailable +[phone] Jurgen Davis MD Unavailable + [phone] Dillon Lee MD Primary Care Provider [phone] Jurgen Davis MD Unavailable + [phone] Dillon Lee MD Primary Care Provider [phone] Nohemi Ocampo LPN Unavailable +[phone] Valeriano Landa MD Primary Care Provider [phone] Encounter Details Date Type Department Care Team (Latest Contact Info) Description 04/13/2016 Orders Only [facility] CLINCONV ProviderFelicity MD [address] [place] [id number] Social History Tobacco Use Types Packs/Day Years Used Date Smoking Tobacco: Never Comments Unknown Sex and Gender Information Value Date Recorded Sex Assigned at Not on file Legal Sex Female 1:11 AM WATER POLLUTION CONTROL INSPECTOR Gender Identity Female 09/07/2022 5:09 AM WATER POLLUTION CONTROL INSPECTOR Sexual Orientation Straight 09/07/2022 5: 09 AM WATER POLLUTION CONTROL INSPECTOR documented as of this encounter Plan of Treatment Not on file documented as of this encounter Procedures Procedure Name Priority Date/Time Associated Diagnosis Comments CARDIOLOGY REPORT 04/18/2016 12: 00 AM CDT documented in this encounter Results * CARDIOLOGY REPORT (04/18/2016 12:00 AM CDT) Anatomical Region Laterality Modality Other Narrative 04/18/2016 12:00 AM CDT Ordered by an unspecified provider. us Historical Provider [facility] Final Result documented in this encounter Visit Diagnoses Not on filedocumented in this encounter Additional Health Concerns Infection Onset Date Last Indicated Resolved Time COVID: Suspected 09/06/2021 09/06/2021 09/07/2021 3:05 AM WATER POLLUTION CONTROL INSPECTOR COVID: Suspected 09/06/2021 09/06/2021 09/07/2021 6:32 AM WATER POLLUTION CONTROL INSPECTOR COVID: Suspected 01/13/2022 01/13/2022 01/13/2022 4:30 PM CDT COVID: Suspected 01/13/2022 01/13/2022 01/14/2022 5:50 AM CDT Exposure, COVID-19 Comment:Added automatically based on COVID19 lab answers indicating exposure risk 01/29/2022 01/29/2022 01/29/2022 9:30 PM C DT COVID: Suspected 01/29/2022 01/29/2022 01/29/2022 9:30 PM CDT COVID19 01/29/2022 01/29/2022 02/08/2022 3:05 AM CDT COVID: Recovered Comment:Added based on recent COVID infection. 02/08/2022 02/10/2022 06/08/2022 3:[address] COVID: Suspected 06/06/2023 06/06/2023 06/06/2023 8:20 AM WATER POLLUTION CONTROL INSPECTOR COVID: Suspected 06/06/2023 06/06/2023 06/06/2023 5:51 PM WATER POLLUTION CONTROL INSPECTOR COVID19 06/06/2023 06/06/2023 06/16/2023 3:05 AM WATER POLLUTION CONTROL INSPECTOR COVID: Suspected 12/17/2023 12/17/2023 12/17/2023 12:47 PM CDT COVID: Suspected 09/15/2024 09/15/2024 09/15/2024 10:27 AM CDT COVID19 09/15/2024 09/15/2024 09/25/2024 3:07 AM CDT COVID: Recovered Comment:Added based on recent COVID infection. 09/25/2024 10/10/2024 documented as of this encounter Care Teams Licensed Occupational Therapist Relationship Specialty Start Date End Date Dillon Lee MD PCP - General Family Medicine 05/10/18 02/05/19 Jurgen Davis MD [address] [place] [address] [address] [place] [address] PCP - Cardiology Interventional Cardiology 02/06/19 06/17/19 Dillon Lee MD PCP - General Family Medicine 02/24/19 06/17/19 Dillon Lee MD PCP - General Family Medicine 06/18/19 12/27/22 Valeriano Landa MD [address] [place] [address] [address] [place] [address] PCP - General Family Medicine 12/28/22 Tere Quispe, RN CJR Outpatient Frame Cleaner 07/25/18 10/30/18 Emily Ryan MA [address] [place] [address] ACO Care Microsoft Exchange Architect 08/06/18 08/14/18 Nohemi Ocampo LPN [address] [place] [address] [address] Otolaryngology Physician 08/16/18 09/25/18 Jurgen Davis MD [address] [place] [address] [address] [place] [address] Tile Molder Hand Interventional Cardiology 02/25/19 06/17/19 Nohemi Ocampo LPN [address] [place] [address] [address] [place] [address] Otolaryngology Physician 02/13/22 documented as of this encounter
--- OUTSIDE RECORDS SUMMARY | 2024-10-13 08:37 | XMS_ITS | Encounter Summary ---
Author Organization [facility] Facility Care Team Providers Care Wardrobe Custodian Name Role Phone Dillon Lee MD Primary Care Provider [phone] Tere Quispe RN Unavailable [phone] Emily Ryan MA Unavailable Nohemi Ocampo LPN Unavailable +[phone] Jurgen Davis MD Unavailable + [phone] Dillon Lee MD Primary Care Provider [phone] Jurgen Davis MD Unavailable [phone] Dillon Lee MD Primary Care Provider [phone] Nohemi Ocampo LPN Unavailable +[phone] Valeriano Landa MD Primary Care Provider [phone] Encounter Details Date Type Department Care Team (Latest Contact Info) Description 04/26/2016 Orders Only [facility]G CLINCONV ProviderFelicity MD [address] [place] [address] Social History Tobacco Use Types Packs/Day Years Used Date Smoking Tobacco: Never Comments Unknown Sex and Gender Information Value Date Recorded Sex Assigned at Not on file Legal Sex Female 1:11 AM HOISTING MACHINE OPERATOR Gender Identity Female 09/07/2022 5:09 AM HOISTING MACHINE OPERATOR Sexual Orientation Straight 09/07/2022 5: 09 AM HOISTING MACHINE OPERATOR documented as of this encounter Plan of Treatment Not on file documented as of this encounter Procedures Procedure Name Priority Date/Time Associated Diagnosis Comments CARDIOLOGY REPORT 04/26/2016 12: 00 AM CDT documented in this encounter Results * CARDIOLOGY REPORT (04/26/2016 12:00 AM CDT) Anatomical Region Laterality Modality Other Narrative 04/26/2016 12:00 AM CDT Ordered by an unspecified provider. us Historical Provider [facility] Final Result documented in this encounter Visit Diagnoses Not on filedocumented in this encounter Additional Health Concerns Infection Onset Date Last Indicated Resolved Time COVID: Suspected 09/06/2021 09/06/2021 09/07/2021 3:05 AM HOISTING MACHINE OPERATOR COVID: Suspected 09/06/2021 09/06/2021 09/07/2021 6:32 AM HOISTING MACHINE OPERATOR COVID: Suspected 01/13/2022 01/13/2022 01/13/2022 4:30 PM [...] COVID: Suspected 06/06/2023 06/06/2023 06/06/2023 8:20 AM HOISTING MACHINE OPERATOR COVID: Suspected 06/06/2023 06/06/2023 06/06/2023 5:51 PM HOISTING MACHINE OPERATOR COVID19 06/06/2023 06/06/2023 06/16/2023 3:05 AM HOISTING MACHINE OPERATOR COVID: Suspected 12/17/2023 12/17/2023 12/17/2023 12:47 PM CDT COVID: Suspected 09/15/2024 09/15/2024 09/15/2024 10:27 AM CDT COVID19 09/15/2024 09/15/2024 09/25/2024 3:07 AM CDT COVID: Recovered Comment:Added based on recent COVID infection. 09/25/2024 10/10/2024 documented as of this encounter Care Teams Wardrobe Custodian Relationship Specialty Start Date End Date Dillon Lee MD PCP - General Family Medicine 05/10/18 02/05/19 Jurgen Davis MD [address] [place] [address] [address] [place] [address] PCP - Cardiology Interventional Cardiology 02/06/19 06/17/19 Dillon Lee MD PCP - General Family Medicine 02/24/19 06/17/19 Dillon Lee MD PCP - General Family Medicine 06/18/19 12/27/22 Valeriano Landa MD [address] [place] [address] [address] [place] [address] PCP - General Family Medicine 12/28/22 Tere Quispe, RN CJR Outpatient Corporate Associate Attorney 07/25/18 10/30/18 Emily Ryan MA [address] [place] [address] ACO Care Flat Spring Assembler 08/06/18 08/14/18 Nohemi Ocampo LPN [address] [place] [address] [address] Health Technician 08/16/18 09/25/18 Jurgen Davis MD [address] [place] [address] [address] [place] [address] Digital Producer Interventional Cardiology 02/25/19 06/17/19 Nohemi Ocampo LPN [address] [place] [address] [address] [place] [address] Health Technician 02/13/22 documented as of this encounter
--- OUTSIDE RECORDS SUMMARY | 2024-10-13 08:37 | XMS_ITS | Encounter Summary ---
Author Organization [facility] Facility Care Team Providers Care Education Managers Name Role Phone Dillon Lee MD Primary Care Provider +[phone] Tere Quispe RN Unavailable +[phone] Emily Ryan MA Unavailable Nohemi Ocampo LPN Unavailable +[phone] Jurgen Davis MD Unavailable + [phone] Dillon Lee MD Primary Care Provider +[phone] Jurgen Davis MD Unavailable + [phone] Dillon Lee MD Primary Care Provider +[phone] Nohemi Ocampo LPN Unavailable +[phone] Valeriano Landa MD Primary Care Provider +[phone] Encounter Details Date Type Department Care Team (Latest Contact Info) Description 04/30/2016 Orders Only [facility] CLINCONV ProviderFelicity MD [address] [place] [address] Social History Tobacco Use Types Packs/Day Years Used Date Smoking Tobacco: Never Comments Unknown Sex and Gender Information Value Date Recorded Sex Assigned at Not on file Legal Sex Female 1:11 AM TELECOMMUNICATIONS REPAIRER Gender Identity Female 09/07/2022 5:09 AM TELECOMMUNICATIONS REPAIRER Sexual Orientation Straight 09/07/2022 5: 09 AM TELECOMMUNICATIONS REPAIRER documented as of this encounter Plan of Treatment Not on file documented as of this encounter Procedures Procedure Name Priority Date/Time Associated Diagnosis Comments CARDIOLOGY REPORT 04/30/2016 12: 00 AM CDT documented in this encounter Results * CARDIOLOGY REPORT (04/30/2016 12:00 AM CDT) Anatomical Region Laterality Modality Other Narrative 04/30/2016 12:00 AM CDT Ordered by an unspecified provider. us Historical Provider [facility] Final Result documented in this encounter Visit Diagnoses Not on filedocumented in this encounter Additional Health Concerns Infection Onset Date Last Indicated Resolved Time COVID: Suspected 09/06/2021 09/06/2021 09/07/2021 3:05 AM TELECOMMUNICATIONS REPAIRER COVID: Suspected 09/06/2021 09/06/2021 09/07/2021 6:32 AM TELECOMMUNICATIONS REPAIRER COVID: Suspected 01/13/2022 01/13/2022 01/13/2022 4:30 PM [...] COVID: Suspected 06/06/2023 06/06/2023 06/06/2023 8:20 AM TELECOMMUNICATIONS REPAIRER COVID: Suspected 06/06/2023 06/06/2023 06/06/2023 5:51 PM TELECOMMUNICATIONS REPAIRER COVID19 06/06/2023 06/06/2023 06/16/2023 3:05 AM TELECOMMUNICATIONS REPAIRER COVID: Suspected 12/17/2023 12/17/2023 12/17/2023 12:47 PM CDT COVID: Suspected 09/15/2024 09/15/2024 09/15/2024 10:27 AM CDT COVID19 09/15/2024 09/15/2024 09/25/2024 3:07 AM CDT COVID: Recovered Comment:Added based on recent COVID infection. 09/25/2024 10/10/2024 documented as of this encounter Care Teams Education Managers Relationship Specialty Start Date End Date Dillon Lee MD PCP - General Family Medicine 05/10/18 02/05/19 Jurgen Davis MD [address] [place] [address] [address] [place] [address] PCP - Cardiology Interventional Cardiology 02/06/19 06/17/19 Dillon Lee MD PCP - General Family Medicine 02/24/19 06/17/19 Dillon Lee MD PCP - General Family Medicine 06/18/19 12/27/22 Valeriano Landa MD [address] [place] [address] [address] [place] [address] PCP - General Family Medicine 12/28/22 Tere Quispe, RN CJR Outpatient Wardrobe Coordinator 07/25/18 10/30/18 Emily Ryan MA [address] [place] [address] ACO Care Master Baker 08/06/18 08/14/18 Nohemi Ocampo LPN [address] [place] [address] [address] School Admissions Representative 08/16/18 09/25/18 Jurgen Davis MD [address] [place] [address] [address] [place] [address] Motel Front Desk Clerk Interventional Cardiology 02/25/19 06/17/19 Nohemi Ocampo LPN [address] [place] [address] [address] [place] [address] School Admissions Representative 02/13/22 documented as of this encounter
--- OUTSIDE RECORDS SUMMARY | 2024-10-13 08:37 | XMS_ITS | Encounter Summary ---
Author Organization [facility] Facility Care Team Providers Care Diagnostic Cardiac Sonographer Name Role Phone Dillon Lee MD Primary Care Provider +[phone] Tere Quispe RN Unavailable +[phone] Emily Ryan MA Unavailable Nohemi Ocampo LPN Unavailable +[phone] Jurgen Davis MD Unavailable + [phone] Dillon Lee MD Primary Care Provider +[phone] Jurgen Davis MD Unavailable + [phone] Dillon Lee MD Primary Care Provider +[phone] Nohemi Ocampo LPN Unavailable +[phone] Valeriano Landa MD Primary Care Provider +[phone] Encounter Details Date Type Department Care Team (Latest Contact Info) Description 04/22/2016 Orders Only [facility] CLINCONV ProviderFelicity MD [address] [place] [address] Social History Tobacco Use Types Packs/Day Years Used Date Smoking Tobacco: Never Comments Unknown Sex and Gender Information Value Date Recorded Sex Assigned at Not on file Legal Sex Female 1:11 AM CUSTOMER RELATIONS CONSULTANT Gender Identity Female 09/07/2022 5:09 AM CUSTOMER RELATIONS CONSULTANT Sexual Orientation Straight 09/07/2022 5: 09 AM CUSTOMER RELATIONS CONSULTANT documented as of this encounter Plan of Treatment Not on file documented as of this encounter Procedures Procedure Name Priority Date/Time Associated Diagnosis Comments CARDIOLOGY REPORT 04/22/2016 12: 00 AM CDT documented in this encounter Results * CARDIOLOGY REPORT (04/22/2016 12:00 AM CDT) Anatomical Region Laterality Modality Other Narrative 04/22/2016 12:00 AM CDT Ordered by an unspecified provider. us Historical Provider [facility] Final Result documented in this encounter Visit Diagnoses Not on filedocumented in this encounter Additional Health Concerns Infection Onset Date Last Indicated Resolved Time COVID: Suspected 09/06/2021 09/06/2021 09/07/2021 3:05 AM CUSTOMER RELATIONS CONSULTANT COVID: Suspected 09/06/2021 09/06/2021 09/07/2021 6:32 AM CUSTOMER RELATIONS CONSULTANT COVID: Suspected 01/13/2022 01/13/2022 01/13/2022 4:30 PM [...] COVID: Suspected 06/06/2023 06/06/2023 06/06/2023 8:20 AM CUSTOMER RELATIONS CONSULTANT COVID: Suspected 06/06/2023 06/06/2023 06/06/2023 5:51 PM CUSTOMER RELATIONS CONSULTANT COVID19 06/06/2023 06/06/2023 06/16/2023 3:05 AM CUSTOMER RELATIONS CONSULTANT COVID: Suspected 12/17/2023 12/17/2023 12/17/2023 12:47 PM CDT COVID: Suspected 09/15/2024 09/15/2024 09/15/2024 10:27 AM CDT COVID19 09/15/2024 09/15/2024 09/25/2024 3:07 AM CDT COVID: Recovered Comment:Added based on recent COVID infection. 09/25/2024 10/10/2024 documented as of this encounter Care Teams Diagnostic Cardiac Sonographer Relationship Specialty Start Date End Date Dillon Lee MD PCP - General Family Medicine 05/10/18 02/05/19 Jurgen Davis MD [address] [place] [address] [address] [place] [address] PCP - Cardiology Interventional Cardiology 02/06/19 06/17/19 Dillon Lee MD PCP - General Family Medicine 02/24/19 06/17/19 Dillon Lee MD PCP - General Family Medicine 06/18/19 12/27/22 Valeriano Landa MD [address] [place] [address] [address] [place] [address] PCP - General Family Medicine 12/28/22 Tere Quispe, RN CJR Outpatient Data Collection Interviewer 07/25/18 10/30/18 Emily Ryan MA [address] [place] [address] ACO Care Air Defense Artillery Officer 08/06/18 08/14/18 Nohemi Ocampo LPN [address] [place] [address] [address] Order Processing Specialist 08/16/18 09/25/18 Jurgen Davis MD [address] [place] [address] [address] [place] [address] Rn Relief Charge Interventional Cardiology 02/25/19 06/17/19 Nohemi Ocampo LPN [address] [place] [address] [address] [place] [address] Order Processing Specialist 02/13/22 documented as of this encounter
--- OUTSIDE RECORDS SUMMARY | 2024-10-13 08:37 | XMS_ITS | Encounter Summary ---
Author Organization [facility] Facility Care Team Providers Care Social Secretary Name Role Phone Dillon Lee MD Primary Care Provider +[phone] Tere Quispe RN Unavailable [phone] Emily Ryan MA Unavailable Nohemi Ocampo LPN Unavailable +[phone] Jurgen Davis MD Unavailable + [phone] Dillon Lee MD Primary Care Provider +[phone] Jurgen Davis MD Unavailable + [phone] Dillon Lee MD Primary Care Provider +[phone] Nohemi Ocampo LPN Unavailable +[phone] Valeriano Landa MD Primary Care Provider +[phone] Encounter Details Date Type Department Care Team (Latest Contact Info) Description 04/19/2016 Orders Only [facility] CLINCONV ProviderFelicity MD [address] [place] [address] Social History Tobacco Use Types Packs/Day Years Used Date Smoking Tobacco: Never Comments Unknown Sex and Gender Information Value Date Recorded Sex Assigned at Not on file Legal Sex Female 1:11 AM BRIM WELT SEWING MACHINE OPERATOR Gender Identity Female 09/07/2022 5:09 AM BRIM WELT SEWING MACHINE OPERATOR Sexual Orientation Straight 09/07/2022 5: 09 AM BRIM WELT SEWING MACHINE OPERATOR documented as of this encounter Plan of Treatment Not on file documented as of this encounter Procedures Procedure Name Priority Date/Time Associated Diagnosis Comments CARDIOLOGY REPORT 04/19/2016 12: 00 AM CDT documented in this encounter Results * CARDIOLOGY REPORT (04/19/2016 12:00 AM CDT) Anatomical Region Laterality Modality Other Narrative 04/19/2016 12:00 AM CDT Ordered by an unspecified provider. us Historical Provider [facility] Final Result documented in this encounter Visit Diagnoses Not on filedocumented in this encounter Additional Health Concerns Infection Onset Date Last Indicated Resolved Time COVID: Suspected 09/06/2021 09/06/2021 09/07/2021 3:05 AM BRIM WELT SEWING MACHINE OPERATOR COVID: Suspected 09/06/2021 09/06/2021 09/07/2021 6:32 AM BRIM WELT SEWING MACHINE OPERATOR COVID: Suspected 01/13/2022 01/13/2022 01/13/2022 [...] COVID: Suspected 06/06/2023 06/06/2023 06/06/2023 8:20 AM BRIM WELT SEWING MACHINE OPERATOR COVID: Suspected 06/06/2023 06/06/2023 06/06/2023 5:51 PM BRIM WELT SEWING MACHINE OPERATOR COVID19 06/06/2023 06/06/2023 06/16/2023 3:05 AM BRIM WELT SEWING MACHINE OPERATOR COVID: Suspected 12/17/2023 12/17/2023 12/17/2023 12:47 PM CDT COVID: Suspected 09/15/2024 09/15/2024 09/15/2024 10:27 AM CDT COVID19 09/15/2024 09/15/2024 09/25/2024 3:07 AM CDT COVID: Recovered Comment:Added based on recent COVID infection. 09/25/2024 10/10/2024 documented as of this encounter Care Teams Social Secretary Relationship Specialty Start Date End Date Dillon Lee MD PCP - General Family Medicine 05/10/18 02/05/19 Jurgen Davis MD [address] [place] [address] [address] [place] [address] PCP - Cardiology Interventional Cardiology 02/06/19 06/17/19 Dillon Lee MD PCP - General Family Medicine 02/24/19 06/17/19 Dillon Lee MD PCP - General Family Medicine 06/18/19 12/27/22 Valeriano Landa MD [address] [place] [address] [address] [place] [address] PCP - General Family Medicine 12/28/22 Tere Quispe, RN CJR Outpatient Gamemaster 07/25/18 10/30/18 Emily Ryan MA [address] [place] [address] ACO Care Bed Teacher 08/06/18 08/14/18 Nohemi Ocampo LPN [address] [place] [address] [address] Patternmaker Helper 08/16/18 09/25/18 Jurgen Davis MD [address] [place] [address] [address] [place] [address] Resident Care Manager Rn Interventional Cardiology 02/25/19 06/17/19 Nohemi Ocampo LPN [address] [place] [address] [address] [place] [address] Patternmaker Helper 02/13/22 documented as of this encounter
--- OUTSIDE RECORDS SUMMARY | 2024-10-13 08:37 | XMS_ITS | Encounter Summary ---
Author Organization [facility] Facility Care Team Providers Care Product Safety Specialist Name Role Phone Dillon Lee MD Primary Care Provider +[phone] Tere Quispe RN Unavailable [phone] Emily Ryan MA Unavailable Nohemi Ocampo LPN Unavailable +[phone] Jurgen Davis MD Unavailable + [phone] Dillon Lee MD Primary Care Provider +[phone] Jurgen Davis MD Unavailable + [phone] Dillon Lee MD Primary Care Provider +[phone] Nohemi Ocampo LPN Unavailable +[phone] Valeriano Landa MD Primary Care Provider +[phone] Encounter Details Date Type Department Care Team (Latest Contact Info) Description 04/29/2016 Orders Only [facility] CLINCONV ProviderFelicity MD [address] [place] [address] Social History Tobacco Use Types Packs/Day Years Used Date Smoking Tobacco: Never Comments Unknown Sex and Gender Information Value Date Recorded Sex Assigned at Not on file Legal Sex Female 1:11 AM TELEX OPERATOR Gender Identity Female 09/07/2022 5:09 AM TELEX OPERATOR Sexual Orientation Straight 09/07/2022 5: 09 AM TELEX OPERATOR documented as of this encounter Plan of Treatment Not on file documented as of this encounter Procedures Procedure Name Priority Date/Time Associated Diagnosis Comments CARDIOLOGY REPORT 04/29/2016 12: 00 AM CDT documented in this encounter Results * CARDIOLOGY REPORT (04/29/2016 12:00 AM CDT) Anatomical Region Laterality Modality Other Narrative 04/29/2016 12:00 AM CDT Ordered by an unspecified provider. us Historical Provider [facility] Final Result documented in this encounter Visit Diagnoses Not on filedocumented in this encounter Additional Health Concerns Infection Onset Date Last Indicated Resolved Time COVID: Suspected 09/06/2021 09/06/2021 09/07/2021 3:05 AM TELEX OPERATOR COVID: Suspected 09/06/2021 09/06/2021 09/07/2021 6:32 AM TELEX OPERATOR COVID: Suspected 01/13/2022 01/13/2022 01/13/2022 4:30 [...] COVID: Suspected 06/06/2023 06/06/2023 06/06/2023 8:20 AM TELEX OPERATOR COVID: Suspected 06/06/2023 06/06/2023 06/06/2023 5:51 PM TELEX OPERATOR COVID19 06/06/2023 06/06/2023 06/16/2023 3:05 AM TELEX OPERATOR COVID: Suspected 12/17/2023 12/17/2023 12/17/2023 12:47 PM CDT COVID: Suspected 09/15/2024 09/15/2024 09/15/2024 10:27 AM CDT COVID19 09/15/2024 09/15/2024 09/25/2024 3:07 AM CDT COVID: Recovered Comment:Added based on recent COVID infection. 09/25/2024 10/10/2024 documented as of this encounter Care Teams Product Safety Specialist Relationship Specialty Start Date End Date Dillon Lee MD PCP - General Family Medicine 05/10/18 02/05/19 Jurgen Davis MD [address] [place] [address] [address] [place] [address] PCP - Cardiology Interventional Cardiology 02/06/19 06/17/19 Dillon Lee MD PCP - General Family Medicine 02/24/19 06/17/19 Dillon Lee MD PCP - General Family Medicine 06/18/19 12/27/22 Valeriano Landa MD [address] [place] [address] [address] [place] [address] PCP - General Family Medicine 12/28/22 Tere Quispe, RN CJR Outpatient Ibm Mainframe Systems Programmer 07/25/18 10/30/18 Emily Ryan MA [address] [place] [address] ACO Care Art Critic 08/06/18 08/14/18 Nohemi Ocampo LPN [address] [place] [address] [address] Institutional Cook 08/16/18 09/25/18 Jurgen Davis MD [address] [place] [address] [address] [place] [address] Neurocritical Care Physician Interventional Cardiology 02/25/19 06/17/19 Nohemi Ocampo LPN [address] [place] [address] [address] [place] [address] Institutional Cook 02/13/22 documented as of this encounter
--- OUTSIDE RECORDS SUMMARY | 2024-10-13 08:37 | XMS_ITS | Encounter Summary ---
Author Organization [facility] Facility Care Team Providers Care Club Manager Name Role Phone Dillon Lee MD Primary Care Provider +[phone] Tere Quispe RN Unavailable [phone] Emily Ryan MA Unavailable Nohemi Ocampo LPN Unavailable +[phone] Jurgen Davis MD Unavailable + [phone] Dillon Lee MD Primary Care Provider +[phone] Jurgen Davis MD Unavailable + [phone] Dillon Lee MD Primary Care Provider +[phone] Nohemi Ocampo LPN Unavailable +[phone] Valeriano Landa MD Primary Care Provider +[phone] Encounter Details Date Type Department Care Team (Latest Contact Info) Description 05/09/2016 Orders Only [facility]G CLINCONV ProviderFelicity MD [address] [place] [address] Social History Tobacco Use Types Packs/Day Years Used Date Smoking Tobacco: Never Comments Unknown Sex and Gender Information Value Date Recorded Sex Assigned at Not on file Legal Sex Female 1:11 AM CENTRIFUGAL DRIER OPERATOR Gender Identity Female 09/07/2022 5:09 AM CENTRIFUGAL DRIER OPERATOR Sexual Orientation Straight 09/07/2022 5: 09 AM CENTRIFUGAL DRIER OPERATOR documented as of this encounter Plan of Treatment Not on file documented as of this encounter Procedures Procedure Name Priority Date/Time Associated Diagnosis Comments CARDIOLOGY REPORT 05/09/2016 12: 00 AM CENTRIFUGAL DRIER OPERATOR documented in this encounter Results * CARDIOLOGY REPORT (05/09/2016 12:00 AM CENTRIFUGAL DRIER OPERATOR) Anatomical Region Laterality Modality Other Narrative 05/09/2016 12:00 AM CENTRIFUGAL DRIER OPERATOR Ordered by an unspecified provider. us Historical Provider [facility] Final Result documented in this encounter Visit Diagnoses Not on filedocumented in this encounter Additional Health Concerns Infection Onset Date Last Indicated Resolved Time COVID: Suspected 09/06/2021 09/06/2021 09/07/2021 3:05 AM CENTRIFUGAL DRIER OPERATOR COVID: Suspected 09/06/2021 09/06/2021 09/07/2021 6:32 AM CENTRIFUGAL DRIER OPERATOR COVID: Suspected 01/13/2022 01/13/2022 01/13/2022 4:30 [...] COVID: Suspected 06/06/2023 06/06/2023 06/06/2023 8:20 AM CENTRIFUGAL DRIER OPERATOR COVID: Suspected 06/06/2023 06/06/2023 06/06/2023 5:51 PM CENTRIFUGAL DRIER OPERATOR COVID19 06/06/2023 06/06/2023 06/16/2023 3:05 AM CENTRIFUGAL DRIER OPERATOR COVID: Suspected 12/17/2023 12/17/2023 12/17/2023 12:47 PM CDT COVID: Suspected 09/15/2024 09/15/2024 09/15/2024 10:27 AM CDT COVID19 09/15/2024 09/15/2024 09/25/2024 3:07 AM CDT COVID: Recovered Comment:Added based on recent COVID infection. 09/25/2024 10/10/2024 documented as of this encounter Care Teams Club Manager Relationship Specialty Start Date End Date Dillon Lee MD PCP - General Family Medicine 05/10/18 02/05/19 Jurgen Davis MD [address] [place] [address] [address] [place] [address] PCP - Cardiology Interventional Cardiology 02/06/19 06/17/19 Dillon Lee MD PCP - General Family Medicine 02/24/19 06/17/19 Dillon Lee MD PCP - General Family Medicine 06/18/19 12/27/22 Valeriano Landa MD [address] [place] [address] [address] [place] [address] PCP - General Family Medicine 12/28/22 Tere Quispe RN CJR Outpatient Auditor Tax 07/25/18 10/30/18 Emily Ryan MA [address] [place] [address] ACO Care Ticket Agent 08/06/18 08/14/18 Nohemi Ocampo, TAMMIE [address] [place] [address] [address] [place] [address] Armhole Presser 08/16/18 09/25/18 Jurgen Davis MD [address] [place] [address] [address] [place] [address] Java Web Application Developer Interventional Cardiology 02/25/19 06/17/19 Nohemi Ocampo LPN [address] [place] [address] [address] [place] [address] Armhole Presser 02/13/22 documented as of this encounter
--- OUTSIDE RECORDS SUMMARY | 2024-10-13 08:37 | XMS_ITS | Encounter Summary ---
Author Organization [facility] Facility Care Team Providers Care Log Buncher Name Role Phone Diloln Lee MD Primary Care Provider +[phone] Tere Quispe RN Unavailable [phone] Emily Ryan MA Unavailable Nohemi Ocampo LPN Unavailable +4963 Jurgen Davis MD Unavailable + [phone] Dillon Lee MD Primary Care Provider +[phone] Jurgen Davis MD Unavailable + [phone] Dillon Lee MD Primary Care Provider +[phone] Nohemi Ocampo LPN Unavailable +[phone] Valeriano Landa MD Primary Care Provider [phone] Encounter Details Date Type Department Care Team (Latest Contact Info) Description 05/08/2016 Orders Only [facility]G CLINCONV ProviderFelicity MD [address] [place] [address] Social History Tobacco Use Types Packs/Day Years Used Date Smoking Tobacco: Never Comments Unknown Sex and Gender Information Value Date Recorded Sex Assigned at Not on file Legal Sex Female 1:11 AM ENGINE TEST CELL TECHNICIAN Gender Identity Female 09/07/2022 5:09 AM ENGINE TEST CELL TECHNICIAN Sexual Orientation Straight 09/07/2022 5: 09 AM ENGINE TEST CELL TECHNICIAN documented as of this encounter Plan of Treatment Not on file documented as of this encounter Procedures Procedure Name Priority Date/Time Associated Diagnosis Comments CARDIOLOGY REPORT 05/09/2016 12: 00 AM ENGINE TEST CELL TECHNICIAN documented in this encounter Results * CARDIOLOGY REPORT (05/09/2016 12:00 AM ENGINE TEST CELL TECHNICIAN) Anatomical Region Laterality Modality Other Narrative 05/09/2016 12:00 AM ENGINE TEST CELL TECHNICIAN Ordered by an unspecified provider. us Historical Provider CV [facility] Final Result documented in this encounter Visit Diagnoses Not on filedocumented in this encounter Additional Health Concerns Infection Onset Date Last Indicated Resolved Time COVID: Suspected 09/06/2021 09/06/2021 09/07/2021 3:05 AM ENGINE TEST CELL TECHNICIAN COVID: Suspected 09/06/2021 09/06/2021 09/07/2021 6:32 AM ENGINE TEST CELL TECHNICIAN COVID: Suspected 01/13/2022 01/13/2022 01/13/2022 4:30 PM [...] COVID: Suspected 06/06/2023 06/06/2023 06/06/2023 8:20 AM ENGINE TEST CELL TECHNICIAN COVID: Suspected 06/06/2023 06/06/2023 06/06/2023 5:51 PM ENGINE TEST CELL TECHNICIAN COVID19 06/06/2023 06/06/2023 06/16/2023 3:05 AM ENGINE TEST CELL TECHNICIAN COVID: Suspected 12/17/2023 12/17/2023 12/17/2023 12:47 PM CDT COVID: Suspected 09/15/2024 09/15/2024 09/15/2024 10:27 AM CDT COVID19 09/15/2024 09/15/2024 09/25/2024 3:07 AM CDT COVID: Recovered Comment:Added based on recent COVID infection. 09/25/2024 10/10/2024 documented as of this encounter Care Teams Log Buncher Relationship Specialty Start Date End Date Dillon Lee MD PCP - General Family Medicine 05/10/18 02/05/19 Jurgen Davis MD [address] [place] [address] [address] [place] [address] PCP - Cardiology Interventional Cardiology 02/06/19 06/17/19 Dillon Lee MD PCP - General Family Medicine 02/24/19 06/17/19 Dillon Lee MD PCP - General Family Medicine 06/18/19 12/27/22 Valeriano Landa MD [address] [place] [address] [address] [place] [address] PCP - General Family Medicine 12/28/22 Tere Quispe RN CJR Outpatient Cake Mixer 07/25/18 10/30/18 Emily Ryan MA [address] [place] [address] ACO Care Campus Rep 08/06/18 08/14/18 Nohemi Ocampo, TAMMIE [address] [place] [address] [address] [place] [address] Meterman 08/16/18 09/25/18 Jurgen Davis MD [address] [place] [address] [address] [place] [address] Lodging Facilities Attendant Interventional Cardiology 02/25/19 06/17/19 Nohemi Ocampo LPN [address] [place] [address] [address] [place] [address] Meterman 02/13/22 documented as of this encounter
--- OUTSIDE RECORDS SUMMARY | 2024-10-13 08:37 | XMS_ITS | Encounter Summary ---
Author Organization [facility] Facility Care Team Providers Care Copying Machine Mechanic Name Role Phone Dillon Lee MD Primary Care Provider +[phone] Tere Quispe RN Unavailable +[phone] Emily Ryan MA Unavailable Nohemi Ocampo LPN Unavailable +[phone] Jurgen Davis MD Unavailable + [phone] Dillon Lee MD Primary Care Provider +[phone] Jurgen Davis MD Unavailable + [phone] Dillon Lee MD Primary Care Provider +[phone] Nohemi Ocampo LPN Unavailable +[phone] Valeriano Landa MD Primary Care Provider +[phone] Encounter Details Date Type Department Care Team (Latest Contact Info) Description 04/20/2016 Orders Only [facility] CLINCONV ProviderFelicity MD [address] [place] [address] Social History Tobacco Use Types Packs/Day Years Used Date Smoking Tobacco: Never Comments Unknown Sex and Gender Information Value Date Recorded Sex Assigned at Not on file Legal Sex Female 1:11 AM TILTING HEAD BAND SAWYER Gender Identity Female 09/07/2022 5:09 AM TILTING HEAD BAND SAWYER Sexual Orientation Straight 09/07/2022 5: 09 AM TILTING HEAD BAND SAWYER documented as of this encounter Plan of Treatment Not on file documented as of this encounter Procedures Procedure Name Priority Date/Time Associated Diagnosis Comments CARDIOLOGY REPORT 04/20/2016 12: 00 AM CDT documented in this encounter Results * CARDIOLOGY REPORT (04/20/2016 12:00 AM CDT) Anatomical Region Laterality Modality Other Narrative 04/20/2016 12:00 AM CDT Ordered by an unspecified provider. us Historical Provider [facility] Final Result documented in this encounter Visit Diagnoses Not on filedocumented in this encounter Additional Health Concerns Infection Onset Date Last Indicated Resolved Time COVID: Suspected 09/06/2021 09/06/2021 09/07/2021 3:05 AM TILTING HEAD BAND SAWYER COVID: Suspected 09/06/2021 09/06/2021 09/07/2021 6:32 AM TILTING HEAD BAND SAWYER COVID: Suspected 01/13/2022 01/13/2022 01/13/2022 4:30 PM [...] COVID: Suspected 06/06/2023 06/06/2023 06/06/2023 8:20 AM TILTING HEAD BAND SAWYER COVID: Suspected 06/06/2023 06/06/2023 06/06/2023 5:51 PM TILTING HEAD BAND SAWYER COVID19 06/06/2023 06/06/2023 06/16/2023 3:05 AM TILTING HEAD BAND SAWYER COVID: Suspected 12/17/2023 12/17/2023 12/17/2023 12:47 PM CDT COVID: Suspected 09/15/2024 09/15/2024 09/15/2024 10:27 AM CDT COVID19 09/15/2024 09/15/2024 09/25/2024 3:07 AM CDT COVID: Recovered Comment:Added based on recent COVID infection. 09/25/2024 10/10/2024 documented as of this encounter Care Teams Copying Machine Mechanic Relationship Specialty Start Date End Date Dillon Lee MD PCP - General Family Medicine 05/10/18 02/05/19 Jurgen Davis MD [address] [place] [address] [address] [place] [address] PCP - Cardiology Interventional Cardiology 02/06/19 06/17/19 Dillon Lee MD PCP - General Family Medicine 02/24/19 06/17/19 Dillon Lee MD PCP - General Family Medicine 06/18/19 12/27/22 Valeriano Landa MD [address] [place] [address] [address] [place] [address] PCP - General Family Medicine 12/28/22 Tere Quispe, RN CJR Outpatient Dinkey Operator 07/25/18 10/30/18 Emily Ryan MA [address] [place] [address] ACO Care Quilt Maker 08/06/18 08/14/18 Nohemi Ocampo LPN [address] [place] [address] [address] Stock Fitter 08/16/18 09/25/18 Jurgen Davis MD [address] [place] [address] [address] [place] [address] Leaf Conditioner Interventional Cardiology 02/25/19 06/17/19 Nohemi Ocampo LPN [address] [place] [address] [address] [place] [address] Stock Fitter 02/13/22 documented as of this encounter
--- OUTSIDE RECORDS SUMMARY | 2024-10-13 08:37 | XMS_ITS | Encounter Summary ---
Author Organization [facility] Facility Care Team Providers Care Life Guard Name Role Phone Dillon Lee MD Primary Care Provider +[phone] Tere Quispe RN Unavailable +[phone] Emily Ryan MA Unavailable Nohemi Ocampo LPN Unavailable +[phone] Jurgen Davis MD Unavailable + [phone] Dillon Lee MD Primary Care Provider +[phone] Jurgen Davis MD Unavailable + [phone] Dillon Lee MD Primary Care Provider +[phone] Nohemi Ocampo LPN Unavailable +[phone] Valeriano Landa MD Primary Care Provider +[phone] Encounter Details Date Type Department Care Team (Latest Contact Info) Description 04/04/2016 Orders Only [facility]G CLINCONV ProviderFelicity MD [address] [place] [address] Social History Tobacco Use Types Packs/Day Years Used Date Smoking Tobacco: Never Comments Unknown Sex and Gender Information Value Date Recorded Sex Assigned at Not on file Legal Sex Female 1:11 AM ALTERATION TAILOR Gender Identity Female 09/07/2022 5:09 AM ALTERATION TAILOR Sexual Orientation Straight 09/07/2022 5: 09 AM ALTERATION TAILOR documented as of this encounter Plan of Treatment Not on file documented as of this encounter Procedures Procedure Name Priority Date/Time Associated Diagnosis Comments SCAN - LABS 04/06/2016 12:00 AM CDT PROCEDURE - RESULT 04/04/2016 12 :00 AM CDT CARDIOLOGY REPORT 04/04/2016 12: 00 AM CDT documented in this encounter Results * SCAN - LABS (04/06/2016 12:00 AM CDT) Narrative 04/06/2016 12:00 AM CDT Ordered by an unspecified provider. us Historical Provider Final Res ult * PROCEDURE - RESULT (04/04/2016 12:00 AM CDT) Narrative 04/04/2016 12:00 AM CDT Ordered by an unspecified provider. us Historical Provider Final Res ult * CARDIOLOGY REPORT (04/04/2016 12:00 AM CDT) Anatomical Region Laterality Modality Other Narrative 04/04/2016 12:00 AM CDT Ordered by an unspecified provider. us Historical Provider [facility] Final Result documented in this encounter Visit Diagnoses Not on filedocumented in this encounter Additional Health Concerns Infection Onset Date Last Indicated Resolved Time COVID: Suspected 09/06/2021 09/06/2021 09/07/2021 3:05 AM ALTERATION TAILOR COVID: Suspected 09/06/2021 09/06/2021 09/07/2021 6:32 AM ALTERATION TAILOR COVID: Suspected 01/13/2022 01/13/2022 01/13/2022 4:30 PM [...] COVID: Suspected 06/06/2023 06/06/2023 06/06/2023 8:20 AM ALTERATION TAILOR COVID: Suspected 06/06/2023 06/06/2023 06/06/2023 5:51 PM ALTERATION TAILOR COVID19 06/06/2023 06/06/2023 06/16/2023 3:05 AM ALTERATION TAILOR COVID: Suspected 12/17/2023 12/17/2023 12/17/2023 12:47 PM CDT COVID: Suspected 09/15/2024 09/15/2024 09/15/2024 10:27 AM CDT COVID19 09/15/2024 09/15/2024 09/25/2024 3:07 AM CDT COVID: Recovered Comment:Added based on recent COVID infection. 09/25/2024 10/10/2024 documented as of this encounter Care Teams Life Guard Relationship Specialty Start Date End Date Dillon Lee MD PCP - General Family Medicine 05/10/18 02/05/19 Jurgen Davis MD [address] [place] [address] [address] [place] [address] PCP - Cardiology Interventional Cardiology 02/06/19 06/17/19 Dillon Lee MD PCP - General Family Medicine 02/24/19 06/17/19 Dillon Lee MD PCP - General Family Medicine 06/18/19 12/27/22 Valeriano Landa MD [address] [place] [address] [address] [place] [address] PCP - General Family Medicine 12/28/22 Tere Quispe, RN CJR Outpatient Model Dresser 07/25/18 10/30/18 Emily Ryan MA [address] [place] [address] ACO Care Oxyhydrogen Welder 08/06/18 08/14/18 Nohemi Ocampo LPN [address] [place] [address] [address] [place] [address] Director Engineering 08/16/18 09/25/18 Jurgen Davis MD [address] [place] [address] [address] [place] [address] Bargeman Interventional Cardiology 02/25/19 06/17/19 Nohemi Ocampo LPN [address] [place] [address] [address] [place] [address] Director Engineering 02/13/22 documented as of this encounter
--- OUTSIDE RECORDS SUMMARY | 2024-10-13 08:37 | XMS_ITS | Encounter Summary ---
Author Organization [facility] Facility Care Team Providers Care Straight Ruling Machine Operator Name Role Phone Dillon Lee MD Primary Care Provider +[phone] Tere Quispe RN Unavailable +[phone] Emily Ryan MA Unavailable Nohemi Ocampo LPN Unavailable +[phone] Jurgen Davis MD Unavailable + [phone] Dillon Lee MD Primary Care Provider +[phone] Jurgen Davis MD Unavailable + [phone] Dillon Lee MD Primary Care Provider +[phone] Nohemi Ocampo LPN Unavailable +[phone] Valeriano Landa MD Primary Care Provider [phone] Encounter Details Date Type Department Care Team (Latest Contact Info) Description 04/23/2016 Orders Only [facility]G CLINCONV ProviderFelicity MD [address] [place] [address] Social History Tobacco Use Types Packs/Day Years Used Date Smoking Tobacco: Never Comments Unknown Sex and Gender Information Value Date Recorded Sex Assigned at Not on file Legal Sex Female 1:11 AM HEART SURGEON Gender Identity Female 09/07/2022 5:09 AM HEART SURGEON Sexual Orientation Straight 09/07/2022 5: 09 AM HEART SURGEON documented as of this encounter Plan of Treatment Not on file documented as of this encounter Procedures Procedure Name Priority Date/Time Associated Diagnosis Comments CARDIOLOGY REPORT 04/23/2016 12: 00 AM CDT documented in this encounter Results * CARDIOLOGY REPORT (04/23/2016 12:00 AM CDT) Anatomical Region Laterality Modality Other Narrative 04/23/2016 12:00 AM CDT Ordered by an unspecified provider. us Historical Provider [facility] Final Result documented in this encounter Visit Diagnoses Not on filedocumented in this encounter Additional Health Concerns Infection Onset Date Last Indicated Resolved Time COVID: Suspected 09/06/2021 09/06/2021 09/07/2021 3:05 AM HEART SURGEON COVID: Suspected 09/06/2021 09/06/2021 09/07/2021 6:32 AM HEART SURGEON COVID: Suspected 01/13/2022 01/13/2022 01/13/2022 4:30 PM [...] COVID: Suspected 06/06/2023 06/06/2023 06/06/2023 8:20 AM HEART SURGEON COVID: Suspected 06/06/2023 06/06/2023 06/06/2023 5:51 PM HEART SURGEON COVID19 06/06/2023 06/06/2023 06/16/2023 3:05 AM HEART SURGEON COVID: Suspected 12/17/2023 12/17/2023 12/17/2023 12:47 PM CDT COVID: Suspected 09/15/2024 09/15/2024 09/15/2024 10:27 AM CDT COVID19 09/15/2024 09/15/2024 09/25/2024 3:07 AM CDT COVID: Recovered Comment:Added based on recent COVID infection. 09/25/2024 10/10/2024 documented as of this encounter Care Teams Straight Ruling Machine Operator Relationship Specialty Start Date End Date Dillon Lee MD PCP - General Family Medicine 05/10/18 02/05/19 Jurgen Davis MD [address] [place] [address] [address] [place] [address] PCP - Cardiology Interventional Cardiology 02/06/19 06/17/19 Dillon Lee MD PCP - General Family Medicine 02/24/19 06/17/19 Dillon Lee MD PCP - General Family Medicine 06/18/19 12/27/22 Valeriano Landa MD [address] [place] [address] [address] [place] [address] PCP - General Family Medicine 12/28/22 Tere Quispe, RN CJR Outpatient Director Public 07/25/18 10/30/18 Emily Ryan MA [address] [place] [address] ACO Care Fire Safety Manager 08/06/18 08/14/18 Nohemi Ocampo LPN [address] [place] [address] [address] Private Banker 08/16/18 09/25/18 Jurgen Davis MD [address] [place] [address] [address] [place] [address] Internal Medicine Doctor Interventional Cardiology 02/25/19 06/17/19 Nohemi Ocampo LPN [address] [place] [address] [address] [place] [address] Private Banker 02/13/22 documented as of this encounter
--- OUTSIDE RECORDS SUMMARY | 2024-10-13 08:37 | XMS_ITS | Encounter Summary ---
Author Organization [facility] Facility Care Team Providers Care Coal Sampler Name Role Phone Dillon Lee MD Primary Care Provider +[phone] Tere Quispe RN Unavailable +[phone] Emily Ryan MA Unavailable Nohemi Ocampo LPN Unavailable +[phone] Jurgen Davis MD Unavailable + [phone] Dillon Lee MD Primary Care Provider +[phone] Jurgen Davis MD Unavailable + [phone] Dillon Lee MD Primary Care Provider +[phone] Nohemi Ocampo LPN Unavailable +[phone] Valeriano Landa MD Primary Care Provider +[phone] Encounter Details Date Type Department Care Team (Latest Contact Info) Description 04/28/2016 Orders Only [facility]G CLINCONV ProviderFelicity MD [address] [place] [address] Social History Tobacco Use Types Packs/Day Years Used Date Smoking Tobacco: Never Comments Unknown Sex and Gender Information Value Date Recorded Sex Assigned at Not on file Legal Sex Female 1:11 AM HIGH SCHOOL MUSIC INSTRUCTOR Gender Identity Female 09/07/2022 5:09 AM HIGH SCHOOL MUSIC INSTRUCTOR Sexual Orientation Straight 09/07/2022 5: 09 AM HIGH SCHOOL MUSIC INSTRUCTOR documented as of this encounter Plan of Treatment Not on file documented as of this encounter Procedures Procedure Name Priority Date/Time Associated Diagnosis Comments CARDIOLOGY REPORT 04/28/2016 12: 00 AM CDT documented in this encounter Results * CARDIOLOGY REPORT (04/28/2016 12:00 AM CDT) Anatomical Region Laterality Modality Other Narrative 04/28/2016 12:00 AM CDT Ordered by an unspecified provider. us Historical Provider [facility] Final Result documented in this encounter Visit Diagnoses Not on filedocumented in this encounter Additional Health Concerns Infection Onset Date Last Indicated Resolved Time COVID: Suspected 09/06/2021 09/06/2021 09/07/2021 3:05 AM HIGH SCHOOL MUSIC INSTRUCTOR COVID: Suspected 09/06/2021 09/06/2021 09/07/2021 6:32 AM HIGH SCHOOL MUSIC INSTRUCTOR COVID: Suspected 01/13/2022 01/13/2022 01/13/2022 4:30 PM [...] COVID: Suspected 06/06/2023 06/06/2023 06/06/2023 8:20 AM HIGH SCHOOL MUSIC INSTRUCTOR COVID: Suspected 06/06/2023 06/06/2023 06/06/2023 5:51 PM HIGH SCHOOL MUSIC INSTRUCTOR COVID19 06/06/2023 06/06/2023 06/16/2023 3:05 AM HIGH SCHOOL MUSIC INSTRUCTOR COVID: Suspected 12/17/2023 12/17/2023 12/17/2023 12:47 PM CDT COVID: Suspected 09/15/2024 09/15/2024 09/15/2024 10:27 AM CDT COVID19 09/15/2024 09/15/2024 09/25/2024 3:07 AM CDT COVID: Recovered Comment:Added based on recent COVID infection. 09/25/2024 10/10/2024 documented as of this encounter Care Teams Coal Sampler Relationship Specialty Start Date End Date Dillon Lee MD PCP - General Family Medicine 05/10/18 02/05/19 Jurgen Davis MD [address] [place] [address] [address] [place] [address] PCP - Cardiology Interventional Cardiology 02/06/19 06/17/19 Dillon Lee MD PCP - General Family Medicine 02/24/19 06/17/19 Dillon Lee MD PCP - General Family Medicine 06/18/19 12/27/22 Valeriano Landa MD [address] [place] [address] [address] [place] [address] PCP - General Family Medicine 12/28/22 Tere Quispe, RN CJR Outpatient Weaver Dobby Loom 07/25/18 10/30/18 Emily Ryan MA [address] [place] [address] ACO Care Copy Coordinator 08/06/18 08/14/18 Nohemi Ocampo LPN [address] [place] [address] [address] Boom Stick Worker 08/16/18 09/25/18 Jurgen Davis MD [address] [place] [address] [address] [place] [address] Mannequin Molder Interventional Cardiology 02/25/19 06/17/19 Nohemi Ocampo LPN [address] [place] [address] [address] [place] [address] Boom Stick Worker 02/13/22 documented as of this encounter
--- OUTSIDE RECORDS SUMMARY | 2024-10-13 08:37 | XMS_ITS | Encounter Summary ---
Author Organization [facility] Facility Care Team Providers Care Rail Operations Controller Name Role Phone Dillon Lee MD Primary Care Provider +[phone] Tere Quispe RN Unavailable +[phone] Emily Ryan MA Unavailable Nohemi Ocampo LPN Unavailable +[phone] Jurgen Davis MD Unavailable + [phone] Dillon Lee MD Primary Care Provider +[phone] Jurgen Davis MD Unavailable + [phone] Dillon Lee MD Primary Care Provider +[phone] Nohemi Ocampo LPN Unavailable +[phone] Valeriano Landa MD Primary Care Provider +[phone] Encounter Details Date Type Department Care Team (Latest Contact Info) Description 04/21/2016 Orders Only MMG CLINCONV ProviderFelicity MD [address] [place] [address] Social History Tobacco Use Types Packs/Day Years Used Date Smoking Tobacco: Never Comments Unknown Sex and Gender Information Value Date Recorded Sex Assigned at Not on file Legal Sex Female 1:[address]EARCH ENGINEER Gender Identity Female 09/07/2022 5:[address] RESEARCH ENGINEER Sexual Orientation Straight 09/07/2022 5: [address] RESEARCH ENGINEER documented as of this encounter Plan of Treatment Not on file documented as of this encounter Procedures Procedure Name Priority Date/Time Associated Diagnosis Comments CARDIOLOGY REPORT 04/21/2016 12: 00 AM CDT documented in this encounter Results * CARDIOLOGY REPORT (04/21/2016 12:00 AM CDT) Anatomical Region Laterality Modality Other Narrative 04/21/2016 12:00 AM CDT Ordered by an unspecified provider. us Historical Provider CV [facility] Final Result documented in this encounter Visit Diagnoses Not on filedocumented in this encounter Additional Health Concerns Infection Onset Date Last Indicated Resolved Time COVID: Suspected 09/06/2021 09/06/2021 09/07/2021 3:[address] RESEARCH ENGINEER COVID: Suspected 09/06/2021 09/06/2021 09/07/2021 6:[address]EARCH ENGINEER COVID: Suspected 01/13/2022 01/13/2022 01/13/2022 4:30 PM [...] COVID: Suspected 06/06/2023 06/06/2023 06/06/2023 8:[address] RESEARCH ENGINEER COVID: Suspected 06/06/2023 06/06/2023 06/06/2023 5:[address] RESEARCH ENGINEER COVID19 06/06/2023 06/06/2023 06/16/2023 3:[address] RESEARCH ENGINEER COVID: Suspected 12/17/2023 12/17/2023 12/17/2023 12:47 PM CDT COVID: Suspected 09/15/2024 09/15/2024 09/15/2024 10:27 AM CDT COVID19 09/15/2024 09/15/2024 09/25/2024 3:07 AM CDT COVID: Recovered Comment:Added based on recent COVID infection. 09/25/2024 10/10/2024 documented as of this encounter Care Teams Rail Operations Controller Relationship Specialty Start Date End Date Dillon Lee MD PCP - General Family Medicine 05/10/18 02/05/19 Jurgen Davis MD [address] [place] [address] [address] [place] [address] PCP - Cardiology Interventional Cardiology 02/06/19 06/17/19 Dillon Lee MD PCP - General Family Medicine 02/24/19 06/17/19 Dillon Lee MD PCP - General Family Medicine 06/18/19 12/27/22 Valeriano Landa MD [address] [place] [address] [address] [place] [address] PCP - General Family Medicine 12/28/22 Tere Quispe, RN CJR Outpatient Reinforcing Bar Setter 07/25/18 10/30/18 Emily Ryan MA [address] [place] [address] ACO Care Linen Controller 08/06/18 08/14/18 Nohemi Ocampo LPN [address] [place] [address] [address] Supervisor Molding 08/16/18 09/25/18 Jurgen Davis MD [address] [place] [address] [address] [place] [address] Veneer Trimmer Interventional Cardiology 02/25/19 06/17/19 Nohemi Ocampo LPN [address] [place] [address] [address] [place] [address] Supervisor Molding 02/13/22 documented as of this encounter
--- OUTSIDE RECORDS SUMMARY | 2024-10-13 08:37 | XMS_ITS | Encounter Summary ---
Author Organization [facility] Facility Care Team Providers Care Senior It Assistant Name Role Phone Dillon Lee MD Primary Care Provider +[phone] Tere Quispe RN Unavailable +[phone] Emily Ryan MA Unavailable Nohemi Ocampo LPN Unavailable +[phone] Jurgen Davis MD Unavailable + [phone] Dillon Lee MD Primary Care Provider +[phone] Jurgen Davis MD Unavailable + [phone] Dillon Lee MD Primary Care Provider +[phone] Nohemi Ocampo LPN Unavailable +[phone] Valeriano Landa MD Primary Care Provider +[phone] Encounter Details Date Type Department Care Team (Latest Contact Info) Description 04/06/2016 Orders Only MMG CLINCONV ProviderFelicity MD [address] [place] [address] Social History Tobacco Use Types Packs/Day Years Used Date Smoking Tobacco: Never Comments Unknown Sex and Gender Information Value Date Recorded Sex Assigned at Not on file Legal Sex Female 1:11 AM SPECIAL EDUCATION COORDINATOR Gender Identity Female 09/07/2022 5:09 AM SPECIAL EDUCATION COORDINATOR Sexual Orientation Straight 09/07/2022 5: 09 AM SPECIAL EDUCATION COORDINATOR documented as of this encounter Plan of Treatment Not on file documented as of this encounter Procedures Procedure Name Priority Date/Time Associated Diagnosis Comments CARDIOLOGY REPORT 04/10/2016 12: 00 AM CDT documented in this encounter Results * CARDIOLOGY REPORT (04/10/2016 12:00 AM CDT) Anatomical Region Laterality Modality Other Narrative 04/10/2016 12:00 AM CDT Ordered by an unspecified provider. us Historical Provider CV CARDIAC [facility] CASTRO Final Result documented in this encounter Visit Diagnoses Not on filedocumented in this encounter Additional Health Concerns Infection Onset Date Last Indicated Resolved Time COVID: Suspected 09/06/2021 09/06/2021 09/07/2021 3:05 AM SPECIAL EDUCATION COORDINATOR COVID: Suspected 09/06/2021 09/06/2021 09/07/2021 6:32 AM SPECIAL EDUCATION COORDINATOR COVID: Suspected 01/13/2022 01/13/2022 01/13/2022 4:30 PM [...] COVID: Suspected 06/06/2023 06/06/2023 06/06/2023 8:20 AM SPECIAL EDUCATION COORDINATOR COVID: Suspected 06/06/2023 06/06/2023 06/06/2023 5:51 PM SPECIAL EDUCATION COORDINATOR COVID19 06/06/2023 06/06/2023 06/16/2023 3:05 AM SPECIAL EDUCATION COORDINATOR COVID: Suspected 12/17/2023 12/17/2023 12/17/2023 12:47 PM CDT COVID: Suspected 09/15/2024 09/15/2024 09/15/2024 10:27 AM CDT COVID19 09/15/2024 09/15/2024 09/25/2024 3:07 AM CDT COVID: Recovered Comment:Added based on recent COVID infection. 09/25/2024 10/10/2024 documented as of this encounter Care Teams Senior It Assistant Relationship Specialty Start Date End Date Dillon Lee MD PCP - General Family Medicine 05/10/18 02/05/19 Jurgen Davis MD [address] [place] [address] [address] [place] [address] PCP - Cardiology Interventional Cardiology 02/06/19 06/17/19 Dillon Lee MD PCP - General Family Medicine 02/24/19 06/17/19 Dillon Lee MD PCP - General Family Medicine 06/18/19 12/27/22 Valeriano Landa MD [address] [place] [address] [address] [place] [address] PCP - General Family Medicine 12/28/22 Tere Quispe, RN CJR Outpatient Management Trainee Program Stores 07/25/18 10/30/18 Emily Ryan MA [address] [place] [address] ACO Care Air Cargo Ground Operations Supervisor 08/06/18 08/14/18 Nohemi Ocampo LPN [address] [place] [address] [address] Multiple Tube Winding Machine Operator 08/16/18 09/25/18 Jurgen Davis MD [address] [place] [address] [address] [place] [address] Change Attendant Interventional Cardiology 02/25/19 06/17/19 Nohemi Ocampo LPN [address] [place] [address] [address] [place] [address] Multiple Tube Winding Machine Operator 02/13/22 documented as of this encounter
--- OUTSIDE RECORDS SUMMARY | 2024-10-13 08:37 | XMS_ITS | Encounter Summary ---
Author Organization [facility] Facility Care Team Providers Care Labor Relations Manager Name Role Phone Dillon Lee MD Primary Care Provider +[phone] Tere Quispe RN Unavailable +[phone] Emily Ryan MA Unavailable Nohemi Ocampo LPN Unavailable +[phone] Jurgen Davis MD Unavailable + [phone] Dillon Lee MD Primary Care Provider +[phone] Jurgen Davis MD Unavailable + [phone] Dillon Lee MD Primary Care Provider +[phone] Nohemi Ocampo LPN Unavailable +[phone] Valeriano Landa MD Primary Care Provider +[phone] Encounter Details Date Type Department Care Team (Latest Contact Info) Description 04/18/2016 Orders Only [facility] CLINCONV ProviderFelicity MD [address] [place] [address] Social History Tobacco Use Types Packs/Day Years Used Date Smoking Tobacco: Never Comments Unknown Sex and Gender Information Value Date Recorded Sex Assigned at Not on file Legal Sex Female 1:11 AM LEGAL RECORDS CLERK Gender Identity Female 09/07/2022 5:09 AM LEGAL RECORDS CLERK Sexual Orientation Straight 09/07/2022 5: 09 AM LEGAL RECORDS CLERK documented as of this encounter Plan of [...] COVID: Suspected 09/06/2021 09/06/2021 09/07/2021 3:05 AM LEGAL RECORDS CLERK COVID: Suspected 09/06/2021 09/06/2021 09/07/2021 6:32 AM LEGAL RECORDS CLERK COVID: Suspected 01/13/2022 01/13/2022 01/13/2022 4:30 PM [...] COVID: Suspected 06/06/2023 06/06/2023 06/06/2023 8:20 AM LEGAL RECORDS CLERK COVID: Suspected 06/06/2023 06/06/2023 06/06/2023 5:51 PM LEGAL RECORDS CLERK COVID19 06/06/2023 06/06/2023 06/16/2023 3:05 AM LEGAL RECORDS CLERK COVID: Suspected 12/17/2023 12/17/2023 12/17/2023 12:47 PM CDT COVID: Suspected 09/15/2024 09/15/2024 09/15/2024 10:27 AM CDT COVID19 09/15/2024 09/15/2024 09/25/2024 3:07 AM CDT COVID: Recovered Comment:Added based on recent COVID infection. 09/25/2024 10/10/2024 documented as of this encounter Care Teams Labor Relations Manager Relationship Specialty Start Date End Date Dillon Lee MD PCP - General Family Medicine 05/10/18 02/05/19 Jurgen Davis MD [address] [place] [address] [address] [place] [address] PCP - Cardiology Interventional Cardiology 02/06/19 06/17/19 Dillon Lee MD PCP - General Family Medicine 02/24/19 06/17/19 Dillon Lee MD PCP - General Family Medicine 06/18/19 12/27/22 Valeriano Landa MD [address] [place] [address] [address] [place] [address] PCP - General Family Medicine 12/28/22 Tere Quispe, RN CJR Outpatient Housekeeping Room Attendant 07/25/18 10/30/18 Emily Ryan MA [address] [place] [address] ACO Care Registered Nurse Maternity 08/06/18 08/14/18 Nohemi Ocampo LPN [address] [place] [address] [address] Powder Line Repairer 08/16/18 09/25/18 Jurgen Davis MD [address] [place] [address] [address] [place] [address] Licensed Surveyor Interventional Cardiology 02/25/19 06/17/19 Nohemi Ocampo LPN [address] [place] [address] [address] [place] [address] Powder Line Repairer 02/13/22 documented as of this encounter
--- OUTSIDE RECORDS SUMMARY | 2024-10-13 08:37 | XMS_ITS | Encounter Summary ---
Author Organization [facility] Facility Care Team Providers Care Electronics Tech Name Role Phone Dillon Lee MD Primary Care Provider +[phone] Tere Quispe RN Unavailable +[phone] Emily Ryan MA Unavailable Nohemi Ocampo LPN Unavailable +[phone] Jurgen Davis MD Unavailable + [phone] Dillon Lee MD Primary Care Provider +[phone] Jurgen Davis MD Unavailable + [phone] Dillon Lee MD Primary Care Provider +[phone] Nohemi Ocampo LPN Unavailable +[phone] Valeriano Landa MD Primary Care Provider +[phone] Encounter Details Date Type Department Care Team (Latest Contact Info) Description 04/24/2016 Orders Only [facility] CLINCONV ProviderFelicity MD [address] [place] [address] Social History Tobacco Use Types Packs/Day Years Used Date Smoking Tobacco: Never Comments Unknown Sex and Gender Information Value Date Recorded Sex Assigned at Not on file Legal Sex Female 1:11 AM EQUIPMENT PROCESSOR Gender Identity Female 09/07/2022 5:09 AM EQUIPMENT PROCESSOR Sexual Orientation Straight 09/07/2022 5: 09 AM EQUIPMENT PROCESSOR documented as of this encounter Plan of Treatment Not on file documented as of this encounter Procedures Procedure Name Priority Date/Time Associated Diagnosis Comments CARDIOLOGY REPORT 04/24/2016 12: 00 AM CDT documented in this encounter Results * CARDIOLOGY REPORT (04/24/2016 12:00 AM CDT) Anatomical Region Laterality Modality Other Narrative 04/24/2016 12:00 AM CDT Ordered by an unspecified provider. us Historical Provider [facility] Final Result documented in this encounter Visit Diagnoses Not on filedocumented in this encounter Additional Health Concerns Infection Onset Date Last Indicated Resolved Time COVID: Suspected 09/06/2021 09/06/2021 09/07/2021 3:05 AM EQUIPMENT PROCESSOR COVID: Suspected 09/06/2021 09/06/2021 09/07/2021 6:32 AM EQUIPMENT PROCESSOR COVID: Suspected 01/13/2022 01/13/2022 01/13/2022 4:30 PM [...] COVID: Suspected 06/06/2023 06/06/2023 06/06/2023 8:20 AM EQUIPMENT PROCESSOR COVID: Suspected 06/06/2023 06/06/2023 06/06/2023 5:51 PM EQUIPMENT PROCESSOR COVID19 06/06/2023 06/06/2023 06/16/2023 3:05 AM EQUIPMENT PROCESSOR COVID: Suspected 12/17/2023 12/17/2023 12/17/2023 12:47 PM CDT COVID: Suspected 09/15/2024 09/15/2024 09/15/2024 10:27 AM CDT COVID19 09/15/2024 09/15/2024 09/25/2024 3:07 AM CDT COVID: Recovered Comment:Added based on recent COVID infection. 09/25/2024 10/10/2024 documented as of this encounter Care Teams Electronics Tech Relationship Specialty Start Date End Date Dillon Lee MD PCP - General Family Medicine 05/10/18 02/05/19 Jurgen Davis MD [address] [place] [address] [address] [place] [address] PCP - Cardiology Interventional Cardiology 02/06/19 06/17/19 Dillon Lee MD PCP - General Family Medicine 02/24/19 06/17/19 Dillon Lee MD PCP - General Family Medicine 06/18/19 12/27/22 Valeriano Landa MD [address] [place] [address] [address] [place] [address] PCP - General Family Medicine 12/28/22 Tere Quispe, RN CJR Outpatient Speaking Unit Assembler 07/25/18 10/30/18 Emily Ryan MA [address] [place] [address] ACO Care Databases Software Consultant 08/06/18 08/14/18 Nohemi Ocampo LPN [address] [place] [address] [address] Software Engineer Web Applications 08/16/18 09/25/18 Jurgen Davis MD [address] [place] [address] [address] [place] [address] Upper Lining Cementer Interventional Cardiology 02/25/19 06/17/19 Nohemi Ocampo LPN [address] [place] [address] [address] [place] [address] Software Engineer Web Applications 02/13/22 documented as of this encounter
--- OUTSIDE RECORDS SUMMARY | 2024-10-13 08:37 | XMS_ITS | Encounter Summary ---
Author Organization [facility] Facility Care Team Providers Care Cleaner And Dyer Name Role Phone Dillon Lee MD Primary Care Provider +[phone] Tere Quispe RN Unavailable +[phone] Emily Ryan MA Unavailable Nohemi Ocampo LPN Unavailable +[phone] Jurgen Davis MD Unavailable + [phone] Dillon Lee MD Primary Care Provider +[phone] Jurgen Davis MD Unavailable + [phone] Dillon Lee MD Primary Care Provider +[phone] Nohemi Ocampo LPN Unavailable +[phone] Valeriano Landa MD Primary Care Provider +[phone] Encounter Details Date Type Department Care Team (Latest Contact Info) Description 04/27/2016 Orders Only [facility]G CLINCONV ProviderFelicity MD [address] [place] [address] Social History Tobacco Use Types Packs/Day Years Used Date Smoking Tobacco: Never Comments Unknown Sex and Gender Information Value Date Recorded Sex Assigned at Not on file Legal Sex Female 1:11 AM VIRTUALIZATION ARCHITECT Gender Identity Female 09/07/2022 5:09 AM VIRTUALIZATION ARCHITECT Sexual Orientation Straight 09/07/2022 5: 09 AM VIRTUALIZATION ARCHITECT documented as of this encounter Plan of Treatment Not on file documented as of this encounter Procedures Procedure Name Priority Date/Time Associated Diagnosis Comments CARDIOLOGY REPORT 04/27/2016 12: 00 AM CDT documented in this encounter Results * CARDIOLOGY REPORT (04/27/2016 12:00 AM CDT) Anatomical Region Laterality Modality Other Narrative 04/27/2016 12:00 AM CDT Ordered by an unspecified provider. us Historical Provider [facility] Final Result documented in this encounter Visit Diagnoses Not on filedocumented in this encounter Additional Health Concerns Infection Onset Date Last Indicated Resolved Time COVID: Suspected 09/06/2021 09/06/2021 09/07/2021 3:05 AM VIRTUALIZATION ARCHITECT COVID: Suspected 09/06/2021 09/06/2021 09/07/2021 6:32 AM VIRTUALIZATION ARCHITECT COVID: Suspected 01/13/2022 01/13/2022 01/13/2022 4:30 PM [...] COVID: Suspected 06/06/2023 06/06/2023 06/06/2023 8:20 AM VIRTUALIZATION ARCHITECT COVID: Suspected 06/06/2023 06/06/2023 06/06/2023 5:51 PM VIRTUALIZATION ARCHITECT COVID19 06/06/2023 06/06/2023 06/16/2023 3:05 AM VIRTUALIZATION ARCHITECT COVID: Suspected 12/17/2023 12/17/2023 12/17/2023 12:47 PM CDT COVID: Suspected 09/15/2024 09/15/2024 09/15/2024 10:27 AM CDT COVID19 09/15/2024 09/15/2024 09/25/2024 3:07 AM CDT COVID: Recovered Comment:Added based on recent COVID infection. 09/25/2024 10/10/2024 documented as of this encounter Care Teams Cleaner And Dyer Relationship Specialty Start Date End Date Dillon Lee MD PCP - General Family Medicine 05/10/18 02/05/19 Jurgen Davis MD [address] [place] [address] [address] [place] [address] PCP - Cardiology Interventional Cardiology 02/06/19 06/17/19 Dillon Lee MD PCP - General Family Medicine 02/24/19 06/17/19 Dillon Lee MD PCP - General Family Medicine 06/18/19 12/27/22 Valeriano Landa MD [address] [place] [address] [address] [place] [address] PCP - General Family Medicine 12/28/22 Tere Quispe, RN CJR Outpatient Flower Shop Laborer/Designer 07/25/18 10/30/18 Emily Ryan MA [address] [place] [address] ACO Care Director Of Financial Aid 08/06/18 08/14/18 Nohemi Ocampo LPN [address] [place] [address] [address] Ship'S Master 08/16/18 09/25/18 Jurgen Davis MD [address] [place] [address] [address] [place] [address] Household Assistant Interventional Cardiology 02/25/19 06/17/19 Nohemi Ocampo LPN [address] [place] [address] [address] [place] [address] Ship'S Master 02/13/22 documented as of this encounter
--- OUTSIDE RECORDS SUMMARY | 2024-10-13 08:37 | XMS_ITS | Encounter Summary ---
Author Organization [facility] Facility Care Team Providers Care Strip Tank Tender Name Role Phone Dillon Lee MD Primary Care Provider +[phone] Tere Quispe RN Unavailable +[phone] Emily Ryan MA Unavailable Nohemi Ocampo LPN Unavailable +[phone] Jurgen Davis MD Unavailable + [phone] Dillon Lee MD Primary Care Provider +[phone] Jurgen Davis MD Unavailable + [phone] Dillon Lee MD Primary Care Provider +[phone] Nohemi Ocampo LPN Unavailable +[phone] Valeriano Landa MD Primary Care Provider +[phone] Encounter Details Date Type Department Care Team (Latest Contact Info) Description 04/25/2016 Orders Only [facility] CLINCONV ProviderFelicity MD [address] [place] [address] Social History Tobacco Use Types Packs/Day Years Used Date Smoking Tobacco: Never Comments Unknown Sex and Gender Information Value Date Recorded Sex Assigned at Not on file Legal Sex Female 1:11 AM SCENERY BUILDER Gender Identity Female 09/07/2022 5:09 AM SCENERY BUILDER Sexual Orientation Straight 09/07/2022 5: 09 AM SCENERY BUILDER documented as of this encounter Plan of [...] COVID: Suspected 09/06/2021 09/06/2021 09/07/2021 3:05 AM SCENERY BUILDER COVID: Suspected 09/06/2021 09/06/2021 09/07/2021 6:32 AM SCENERY BUILDER COVID: Suspected 01/13/2022 01/13/2022 01/13/2022 4:30 PM [...] COVID: Suspected 06/06/2023 06/06/2023 06/06/2023 8:20 AM SCENERY BUILDER COVID: Suspected 06/06/2023 06/06/2023 06/06/2023 5:51 PM SCENERY BUILDER COVID19 06/06/2023 06/06/2023 06/16/2023 3:05 AM SCENERY BUILDER COVID: Suspected 12/17/2023 12/17/2023 12/17/2023 12:47 PM CDT COVID: Suspected 09/15/2024 09/15/2024 09/15/2024 10:27 AM CDT COVID19 09/15/2024 09/15/2024 09/25/2024 3:07 AM CDT COVID: Recovered Comment:Added based on recent COVID infection. 09/25/2024 10/10/2024 documented as of this encounter Care Teams Strip Tank Tender Relationship Specialty Start Date End Date Dillon Lee MD PCP - General Family Medicine 05/10/18 02/05/19 Jurgen Davis MD [address] [place] [address] [address] [place] [address] PCP - Cardiology Interventional Cardiology 02/06/19 06/17/19 Dillon Lee MD PCP - General Family Medicine 02/24/19 06/17/19 Dillon Lee MD PCP - General Family Medicine 06/18/19 12/27/22 Valeriano Landa MD [address] [place] [address] [address] [place] [address] PCP - General Family Medicine 12/28/22 Tere Quispe, RN CJR Outpatient Blocker And Polisher Gold Wheel 07/25/18 10/30/18 Emily Ryan MA [address] [place] [address] ACO Care Dental Prosthetist 08/06/18 08/14/18 Nohemi Ocampo LPN [address] [place] [address] [address] Credit Risk Officer 08/16/18 09/25/18 Jurgen Davis MD [address] [place] [address] [address] [place] [address] Personal Financial Representative Interventional Cardiology 02/25/19 06/17/19 Nohemi Ocampo LPN [address] [place] [address] [address] [place] [address] Credit Risk Officer 02/13/22 documented as of this encounter
--- OUTSIDE RECORDS SUMMARY | 2024-10-13 08:38 | XMS_ITS | Encounter Summary ---
Author Organization [facility] Facility Care Team Providers Care Associate Financial Analyst Name Role Phone Dillon Lee MD Primary Care Provider +[phone] Tere Quispe RN Unavailable +[phone] Emily Ryan MA Unavailable Nohemi Ocampo LPN Unavailable +5720 Jurgen Davis MD Unavailable + [phone] Dillon Lee MD Primary Care Provider +[phone] Jurgen Davis MD Unavailable + [phone] Dillon Lee MD Primary Care Provider +[phone] Nohemi Ocampo LPN Unavailable +[phone] Valeriano Landa MD Primary Care Provider +[phone] Encounter Details Date Type Department Care Team (Latest Contact Info) Description 05/06/2016 Orders Only MMG CLINCONV ProviderFelicity MD [address] [place] [address] Social History Tobacco Use Types Packs/Day Years Used Date Smoking Tobacco: Never Comments Unknown Sex and Gender Information Value Date Recorded Sex Assigned at Not on file Legal Sex Female 1:11 AM PROFESSOR OF ENGINEERING Gender Identity Female 09/07/2022 5:09 AM PROFESSOR OF ENGINEERING Sexual Orientation Straight 09/07/2022 5: 09 AM PROFESSOR OF ENGINEERING documented as of this encounter Plan of Treatment Not on file documented as of this encounter Procedures Procedure Name Priority Date/Time Associated Diagnosis Comments CARDIOLOGY REPORT 05/08/2016 12: 00 AM PROFESSOR OF ENGINEERING documented in this encounter Results * CARDIOLOGY REPORT (05/08/2016 12:00 AM PROFESSOR OF ENGINEERING) Anatomical Region Laterality Modality Other Narrative 05/08/2016 12:00 AM PROFESSOR OF ENGINEERING Ordered by an unspecified provider. us Historical Provider [facility] Final Result documented in this encounter Visit Diagnoses Not on filedocumented in this encounter Additional Health Concerns Infection Onset Date Last Indicated Resolved Time COVID: Suspected 09/06/2021 09/06/2021 09/07/2021 3:05 AM PROFESSOR OF ENGINEERING COVID: Suspected 09/06/2021 09/06/2021 09/07/2021 6:32 AM PROFESSOR OF ENGINEERING COVID: Suspected 01/13/2022 01/13/2022 01/13/2022 4:30 PM [...] COVID: Suspected 06/06/2023 06/06/2023 06/06/2023 8:20 AM PROFESSOR OF ENGINEERING COVID: Suspected 06/06/2023 06/06/2023 06/06/2023 5:51 PM PROFESSOR OF ENGINEERING COVID19 06/06/2023 06/06/2023 06/16/2023 3:05 AM PROFESSOR OF ENGINEERING COVID: Suspected 12/17/2023 12/17/2023 12/17/2023 12:47 PM CDT COVID: Suspected 09/15/2024 09/15/2024 09/15/2024 10:27 AM CDT COVID19 09/15/2024 09/15/2024 09/25/2024 3:07 AM CDT COVID: Recovered Comment:Added based on recent COVID infection. 09/25/2024 10/10/2024 documented as of this encounter Care Teams Associate Financial Analyst Relationship Specialty Start Date End Date Dillon Lee MD PCP - General Family Medicine 05/10/18 02/05/19 Jurgen Davis MD [address] [place] [address] [address] [place] [address] PCP - Cardiology Interventional Cardiology 02/06/19 06/17/19 Dillon Lee MD PCP - General Family Medicine 02/24/19 06/17/19 Dillon Lee MD PCP - General Family Medicine 06/18/19 12/27/22 Valeriano Landa MD [address] [place] [address] [address] [place] [address] PCP - General Family Medicine 12/28/22 Tere Quispe RN CJR Outpatient Recreation Therapy Teacher 07/25/18 10/30/18 Emily Ryan MA [address] [place] [address] ACO Care Liquor Stores And Agencies Supervisor 08/06/18 08/14/18 Nohemi Ocampo, TAMMIE [address] [place] [address] [address] [place] [address] French Edge Operator 08/16/18 09/25/18 Jurgen Davis MD [address] [place] [address] [address] [place] [address] Feather Baler Interventional Cardiology 02/25/19 06/17/19 Nohemi Ocampo LPN [address] [place] [address] [address] [place] [address] French Edge Operator 02/13/22 documented as of this encounter
--- OUTSIDE RECORDS SUMMARY | 2024-10-13 08:38 | XMS_ITS | Encounter Summary ---
Author Organization [facility] Facility Care Team Providers Care Ointment Mill Tender Name Role Phone Dillon Lee MD Primary Care Provider +[phone] Tere Quispe RN Unavailable [phone] Emily Ryan MA Unavailable Nohemi Ocampo LPN Unavailable +6932 Jurgen Davis MD Unavailable [phone] Dillon Lee MD Primary Care Provider +7112 Jurgen Davis MD Unavailable + [phone] Dillon Lee MD Primary Care Provider +[phone] Nohemi Ocampo LPN Unavailable +9554 Valeriano Landa MD Primary Care Provider +[phone] Encounter Details Date Type Department Care Team (Latest Contact Info) Description 05/02/2016 Orders Only MMG CLINCONV ProviderFelicity MD [address] [place] [address] Social History Tobacco Use Types Packs/Day Years Used Date Smoking Tobacco: Never Comments Unknown Sex and Gender Information Value Date Recorded Sex Assigned at Not on file Legal Sex Female 1:11 AM MOLD CARRIER Gender Identity Female 09/07/2022 5:09 AM MOLD CARRIER Sexual Orientation Straight 09/07/2022 5: 09 AM MOLD CARRIER documented as of this encounter Plan of Treatment Not on file documented as of this encounter Procedures Procedure Name Priority Date/Time Associated Diagnosis Comments CARDIOLOGY REPORT 05/02/2016 12: 00 AM CDT documented in this encounter Results * CARDIOLOGY REPORT (05/02/2016 12:00 AM CDT) Anatomical Region Laterality Modality Other Narrative 05/02/2016 12:00 AM CDT Ordered by an unspecified provider. us Historical Provider [facility] Final Result documented in this encounter Visit Diagnoses Not on filedocumented in this encounter Additional Health Concerns Infection Onset Date Last Indicated Resolved Time COVID: Suspected 09/06/2021 09/06/2021 09/07/2021 3:05 AM MOLD CARRIER COVID: Suspected 09/06/2021 09/06/2021 09/07/2021 6:32 AM MOLD CARRIER COVID: Suspected 01/13/2022 01/13/2022 01/13/2022 4:30 PM [...] COVID: Suspected 06/06/2023 06/06/2023 06/06/2023 8:20 AM MOLD CARRIER COVID: Suspected 06/06/2023 06/06/2023 06/06/2023 5:51 PM MOLD CARRIER COVID19 06/06/2023 06/06/2023 06/16/2023 3:05 AM MOLD CARRIER COVID: Suspected 12/17/2023 12/17/2023 12/17/2023 12:47 PM CDT COVID: Suspected 09/15/2024 09/15/2024 09/15/2024 10:27 AM CDT COVID19 09/15/2024 09/15/2024 09/25/2024 3:07 AM CDT COVID: Recovered Comment:Added based on recent COVID infection. 09/25/2024 10/10/2024 documented as of this encounter Care Teams Ointment Mill Tender Relationship Specialty Start Date End Date Dillon Lee MD PCP - General Family Medicine 05/10/18 02/05/19 Jurgen Davis MD [address] [place] [address] [address] [place] [address] PCP - Cardiology Interventional Cardiology 02/06/19 06/17/19 Dillon Lee MD PCP - General Family Medicine 02/24/19 06/17/19 Dillon Lee MD PCP - General Family Medicine 06/18/19 12/27/22 Valeriano Landa MD [address] [place] [address] [address] [place] [address] PCP - General Family Medicine 12/28/22 Tere Quispe, RN CJR Outpatient Sorter Packer 07/25/18 10/30/18 Emily Ryan MA [address] [place] [address] ACO Care Investment Consultant 08/06/18 08/14/18 Nohemi Ocampo LPN [address] [place] [address] [address] Sample Driller 08/16/18 09/25/18 Jurgen Davis MD [address] [place] [address] [address] [place] [address] Shearer Screen Measurer And Trimmer Interventional Cardiology 02/25/19 06/17/19 Nohemi Ocampo LPN [address] [place] [address] [address] [place] [address] Sample Driller 02/13/22 documented as of this encounter
--- OUTSIDE RECORDS SUMMARY | 2024-10-13 08:38 | XMS_ITS | Encounter Summary ---
Author Organization [facility] Facility Care Team Providers Care Frame Feeder Name Role Phone Dillon Lee MD Primary Care Provider +[phone] Tere Quispe RN Unavailable [phone] Emily Ryan MA Unavailable Nohemi Ocampo LPN Unavailable +[phone] Jurgen Davis MD Unavailable [phone] Dillon Lee MD Primary Care Provider +[phone] Jurgen Davis MD Unavailable + [phone] Dillon Lee MD Primary Care Provider +[phone] Nohemi Ocampo LPN Unavailable +[phone] Valeriano Landa MD Primary Care Provider [phone] Encounter Details Date Type Department Care Team (Latest Contact Info) Description 05/03/2016 Orders Only [facility] CLINCONV ProviderFelicity MD [address] [place] [address] Social History Tobacco Use Types Packs/Day Years Used Date Smoking Tobacco: Never Comments Unknown Sex and Gender Information Value Date Recorded Sex Assigned at Not on file Legal Sex Female 1:11 AM ARTIST MANNEQUIN COLORING Gender Identity Female 09/07/2022 5:09 AM ARTIST MANNEQUIN COLORING Sexual Orientation Straight 09/07/2022 5: 09 AM ARTIST MANNEQUIN COLORING documented as of this encounter Plan of Treatment Not on file documented as of this encounter Procedures Procedure Name Priority Date/Time Associated Diagnosis Comments CARDIOLOGY REPORT 05/03/2016 12: 00 AM CDT documented in this encounter Results * CARDIOLOGY REPORT (05/03/2016 12:00 AM CDT) Anatomical Region Laterality Modality Other Narrative 05/03/2016 12:00 AM CDT Ordered by an unspecified provider. us Historical Provider [facility]O Final Result documented in this encounter Visit Diagnoses Not on filedocumented in this encounter Additional Health Concerns Infection Onset Date Last Indicated Resolved Time COVID: Suspected 09/06/2021 09/06/2021 09/07/2021 3:05 AM ARTIST MANNEQUIN COLORING COVID: Suspected 09/06/2021 09/06/2021 09/07/2021 6:32 AM ARTIST MANNEQUIN COLORING COVID: Suspected 01/13/2022 01/13/2022 01/13/2022 4:30 PM [...] COVID: Suspected 06/06/2023 06/06/2023 06/06/2023 8:20 AM ARTIST MANNEQUIN COLORING COVID: Suspected 06/06/2023 06/06/2023 06/06/2023 5:51 PM ARTIST MANNEQUIN COLORING COVID19 06/06/2023 06/06/2023 06/16/2023 3:05 AM ARTIST MANNEQUIN COLORING COVID: Suspected 12/17/2023 12/17/2023 12/17/2023 12:47 PM CDT COVID: Suspected 09/15/2024 09/15/2024 09/15/2024 10:27 AM CDT COVID19 09/15/2024 09/15/2024 09/25/2024 3:07 AM CDT COVID: Recovered Comment:Added based on recent COVID infection. 09/25/2024 10/10/2024 documented as of this encounter Care Teams Frame Feeder Relationship Specialty Start Date End Date Dillon Lee MD PCP - General Family Medicine 05/10/18 02/05/19 Jurgen Davis MD [address] [place] [address] [address] [place] [address] PCP - Cardiology Interventional Cardiology 02/06/19 06/17/19 Dillon Lee MD PCP - General Family Medicine 02/24/19 06/17/19 Dillon Lee MD PCP - General Family Medicine 06/18/19 12/27/22 Valeriano Landa MD [address] [place] [address] [address] [place] [address] PCP - General Family Medicine 12/28/22 Tere Quispe, RN CJR Outpatient Sharepoint Application Developer 07/25/18 10/30/18 Emily Ryan MA [address] [place] [address] ACO Care Digital Assistant 08/06/18 08/14/18 Nohemi Ocampo LPN [address] [place] [address] [address] Waterworks Chief Engineer 08/16/18 09/25/18 Jurgen Davis MD [address] [place] [address] [address] [place] [address] Hat Checker Interventional Cardiology 02/25/19 06/17/19 Nohemi Ocampo LPN [address] [place] [address] [address] [place] [address] Waterworks Chief Engineer 02/13/22 documented as of this encounter
--- OUTSIDE RECORDS SUMMARY | 2024-10-13 08:38 | XMS_ITS | Encounter Summary ---
Author Organization [facility] Facility Care Team Providers Care University Archivist Name Role Phone Dillon Lee MD Primary Care Provider +[phone] Tere Quispe RN Unavailable +[phone] Emily Ryan MA Unavailable Nohemi Ocampo LPN Unavailable +[phone] Jurgen Davis MD Unavailable + [phone] Dillon Lee MD Primary Care Provider +[phone] Jurgen Davis MD Unavailable + [phone] Dillon Lee MD Primary Care Provider +[phone] Nohemi Ocampo LPN Unavailable +[phone] Valeriano Landa MD Primary Care Provider [phone] Encounter Details Date Type Department Care Team (Latest Contact Info) Description 07/19/2018 Orders Only [facility] CLINCONV ProviderFelicity MD [address] [place] [address] Social History Tobacco Use Types Packs/Day Years Used Date Smoking Tobacco: Never Smokeless Tobacco: Never Alcohol Use Standard Drinks/Week Comments No 0 (1 standard drink = 0.6 oz pur e alcohol) Comments Unknown Sex and Gender Information Value Date Recorded Sex Assigned at Not on file Legal Sex Female 1:11 AM FISCAL ASSISTANT Gender Identity Female 09/07/2022 5:09 AM FISCAL ASSISTANT Sexual Orientation Straight 09/07/2022 5: 09 AM FISCAL ASSISTANT documented as of this encounter Plan of Treatment Not on file documented as of this encounter Procedures Procedure Name Priority Date/Time Associated Diagnosis Comments PROCEDURE - RESULT 07/19/2018 12 :00 AM FISCAL ASSISTANT documented in this encounter Results * PROCEDURE - RESULT (07/19/2018 12:00 AM FISCAL ASSISTANT) Narrative 07/19/2018 12:00 AM FISCAL ASSISTANT Ordered by an unspecified provider. Historical Provider Final Res ult documented in this encounter Visit Diagnoses Not on filedocumented in this encounter Additional Health Concerns Infection Onset Date Last Indicated Resolved Time COVID: Suspected 09/06/2021 09/06/2021 09/07/2021 3:05 AM FISCAL ASSISTANT COVID: Suspected 09/06/2021 09/06/2021 09/07/2021 6:32 AM FISCAL ASSISTANT COVID: Suspected 01/13/2022 01/13/2022 01/13/2022 4:30 PM [...] COVID: Suspected 06/06/2023 06/06/2023 06/06/2023 8:20 AM FISCAL ASSISTANT COVID: Suspected 06/06/2023 06/06/2023 06/06/2023 5:51 PM FISCAL ASSISTANT COVID19 06/06/2023 06/06/2023 06/16/2023 3:05 AM FISCAL ASSISTANT COVID: Suspected 12/17/2023 12/17/2023 12/17/2023 12:47 PM CDT COVID: Suspected 09/15/2024 09/15/2024 09/15/2024 10:27 AM CDT COVID19 09/15/2024 09/15/2024 09/25/2024 3:07 AM CDT COVID: Recovered Comment:Added based on recent COVID infection. 09/25/2024 10/10/2024 documented as of this encounter Care Teams University Archivist Relationship Specialty Start Date End Date Dillon Lee MD PCP - General Family Medicine 05/10/18 02/05/19 Jurgen Davis MD [address] [place] [address] [address] [place] [address] PCP - Cardiology Interventional Cardiology 02/06/19 06/17/19 Dillon Lee MD PCP - General Family Medicine 02/24/19 06/17/19 Dillon Lee MD PCP - General Family Medicine 06/18/19 12/27/22 Valeriano Landa MD [address] [place] [address] [address] [place] [address] PCP - General Family Medicine 12/28/22 Tere Quispe RN CJR Outpatient Solar Sales Advisor 07/25/18 10/30/18 Emily Ryan MA [address] [place] [address] ACO Care Advertising Dispatch Clerk 08/06/18 08/14/18 Nohemi Ocampo LPN [address] [place] [address] Managing Attorney 08/16/18 09/25/18 Jurgen Davis MD [address] [place] [address] Stock Lifter Interventional Cardiology 02/25/19 06/17/19 Nohemi Ocampo LPN [address] [place] [address] Managing Attorney 02/13/22 documented as of this encounter
--- OUTSIDE RECORDS SUMMARY | 2024-10-13 08:38 | XMS_ITS | Encounter Summary ---
Author Organization [facility] Facility Care Team Providers Care Dermatological Surgeon Name Role Phone Dillon Lee MD Primary Care Provider +[phone] Tere Quispe RN Unavailable [phone] Emily Ryan MA Unavailable Nohemi Ocampo LPN Unavailable +[phone] Jurgen Davis MD Unavailable + [phone] Dillon Lee MD Primary Care Provider +[phone] Jurgen Davis MD Unavailable + [phone] Dillon Lee MD Primary Care Provider +[phone] Nohemi Ocampo LPN Unavailable +[phone] Valeriano Landa MD Primary Care Provider +[phone] Encounter Details Date Type Department Care Team (Latest Contact Info) Description 10/26/2016 Orders Only [facility] CLINCONV ProviderFelicity MD [address] [place] [address] Social History Tobacco Use Types Packs/Day Years Used Date Smoking Tobacco: Never Comments Unknown Sex and Gender Information Value Date Recorded Sex Assigned at Not on file Legal Sex Female 1:11 AM MOTOR SCOOTER MECHANIC Gender Identity Female 09/07/2022 5:09 AM MOTOR SCOOTER MECHANIC Sexual Orientation Straight 09/07/2022 5: 09 AM MOTOR SCOOTER MECHANIC documented as of this encounter Plan of Treatment Not on file documented as of this encounter Procedures Procedure Name Priority Date/Time Associated Diagnosis Comments CARDIOLOGY REPORT 11/22/2016 12: 00 AM CDT documented in this encounter Results * CARDIOLOGY REPORT (11/22/2016 12:00 AM CDT) Anatomical Region Laterality Modality Other Narrative 11/22/2016 12:00 AM CDT Ordered by an unspecified provider. us Historical Provider [facility] Final Result documented in this encounter Visit Diagnoses Not on filedocumented in this encounter Additional Health Concerns Infection Onset Date Last Indicated Resolved Time COVID: Suspected 09/06/2021 09/06/2021 09/07/2021 3:05 AM MOTOR SCOOTER MECHANIC COVID: Suspected 09/06/2021 09/06/2021 09/07/2021 6:32 AM MOTOR SCOOTER MECHANIC COVID: Suspected 01/13/2022 01/13/2022 01/13/2022 4:30 PM [...] COVID: Suspected 06/06/2023 06/06/2023 06/06/2023 8:20 AM MOTOR SCOOTER MECHANIC COVID: Suspected 06/06/2023 06/06/2023 06/06/2023 5:51 PM MOTOR SCOOTER MECHANIC COVID19 06/06/2023 06/06/2023 06/16/2023 3:05 AM MOTOR SCOOTER MECHANIC COVID: Suspected 12/17/2023 12/17/2023 12/17/2023 12:47 PM CDT COVID: Suspected 09/15/2024 09/15/2024 09/15/2024 10:27 AM CDT COVID19 09/15/2024 09/15/2024 09/25/2024 3:07 AM CDT COVID: Recovered Comment:Added based on recent COVID infection. 09/25/2024 10/10/2024 documented as of this encounter Care Teams Dermatological Surgeon Relationship Specialty Start Date End Date Dillon Lee MD PCP - General Family Medicine 05/10/18 02/05/19 Jurgen Davis MD [address] [place] [address] [address] [place] [address] PCP - Cardiology Interventional Cardiology 02/06/19 06/17/19 Dillon Lee MD PCP - General Family Medicine 02/24/19 06/17/19 Dillon Lee MD PCP - General Family Medicine 06/18/19 12/27/22 Valeriano Landa MD [address] [place] [address] [address] [place] [address] PCP - General Family Medicine 12/28/22 Tere Quispe, RN CJR Outpatient Grant Administrator 07/25/18 10/30/18 Emily Ryan MA [address] [place] [address] ACO Care Registered Associate 08/06/18 08/14/18 Nohemi Ocampo LPN [address] [place] [address] [address] Securities Clerk 08/16/18 09/25/18 Jurgen Davis MD [address] [place] [address] [address] [place] [address] Library Clerk Interventional Cardiology 02/25/19 06/17/19 Nohemi Ocampo LPN [address] [place] [address] [address] [place] [address] Securities Clerk 02/13/22 documented as of this encounter
--- OUTSIDE RECORDS SUMMARY | 2024-10-13 08:38 | XMS_ITS ---
Author Organization [facility] Address [address] [place] [address] Care Team Providers Care Document Examiner Name Role Phone Nohemi Ocampo LPN Unavailable Valeriano Landa MD Primary Care Provider [phone] Active Problems Problem Noted Date Diagnosed Date MATOS (dyspnea on exertion) 08/05/2024 Acquired absence of genital organ 06/06/2023 Overview (06/06/2023): including BSO Acquired trigger finger 06/06/2023 Adverse effect of HMG-CoA reductase inhibitor Allergic rhinitis 06/06/2023 Arcus senilis 06/06/2023 Back strain 06/06/2023 Bacterial vaginosis 06/06/2023 Basal cell carcinoma (BCC) of face 06/06/2023 Cerumen impaction 06/06/2023 Cervicalgia 06/06/2023 Congenital pes planus 06/06/2023 Cough 06/06/2023 Dermatochalasis 06/06/2023 Difficulty breathing 06/06/2023 Heide type IV hyperlipoproteinemia 023 Hearing loss 06/06/2023 Hyperopia 06/06/2023 Impaired fasting glucose 06/06/2023 Lumbago 06/06/2023 Mixed conductive and sensorineural hearing loss 06/06/2023 Noncompliance with treatment 06/06/2023 Osteoarthritis of hand 06/06/2023 Osteoporosis 06/06/2023 Overweight 06/06/2023 Overview (06/06/2023): according to BMI Plantar fasciitis 06/06/2023 Presbyopia 06/06/2023 Regular astigmatism 06/06/2023 Sinusitis 06/06/2023 Tibialis posterior tendinitis 06/06/2023 Tinnitus 06/06/2023 Chest heaviness 02/11/2022 COVID-19 02/01/2022 Chronic tension-type headache, not intractable 0 09/29/2020 Assessment & Plan (01/31/2021 8:58 AM CDT): As patient is requesting a symptomatic p.r.n. therapy rather than prophylaxis, place her on a trial of Fioricet 1 t.i.d. p.r.n. with limited supply it to no more than 10 tablets per month. She understands this and agrees with approach. She will return to Neurology Clinic in 6 months for reassessment on treatment. Assessment & Plan (09/29/2020 11:46 AM CDT): Patient describes an 8 month history of recurrent and progressively worsening headaches with historical characterization suggesting muscle contraction type headaches. Sedimentation rate laboratory assessment has been otherwise unrevealing and screening for arteritis. Given the frequency and chronicity of her headaches, I will obtain an MRI brain to exclude any structural abnormalities which can mimic muscle contraction type headaches. I will also place her on a trial of nortriptyline 25 mg HS for headache prophylaxis. I will see her back in the office in 3 months time for reassessment. Enthesopathy of hip region 03/24/2019 Degenerative joint disease of shoulder region Osteoarthritis 03/24/2019 Mixed stress and urge urinary incontinence 03/24 Pelvic floor dysfunction in female 03/24/2019 Vaginal atrophy 03/24/2019 Primary insomnia 09/30/2018 Overview (09/30/2018): stop the silenor and start clonazapam 0.5 mg at bedtime Type 2 diabetes mellitus 07/26/2018 Assessment & Plan (11/13/2019 3:49 PM CDT): Advised airways heel will most likely increase her blood sugars she will need to monitor them closely and reduce her carbohydrate intake during the next week or 2. CAD (coronary artery disease) 07/26/2018 GERD (gastroesophageal reflux disease) 9 STEPHENIE (obstructive sleep apnea) 07/26/2018 Primary osteoarthritis of left knee 05/30/2018 Overview (05/30/2018): Added automatically from request for surgery [id number] Assessment & Plan (11/13/2019 3:50 PM CDT): Continue follow-up with orthopedic Primary osteoarthritis of left knee 03/18/2018 Memory loss 07/09/2017 Bilateral high frequency sensorineural hearing l oss 02/14/2017 COPD (chronic obstructive pulmonary disease) 06/2017 Tricuspid regurgitation 04/18/2016 Hyperlipidemia LDL goal <70 04/04/2016 Anxiety disorder 01/17/2016 Essential (primary) hypertension 01/17/2016 Other spondylosis, lumbosacral region 01/17/2016 Assessment & Plan (11/13/2019 3:44 PM CDT): Start mdp RLS (restless legs syndrome) 01/17/2016 Vitamin D deficiency 01/17/2016 Osteopenia 12/20/2015 Psychophysiological insomnia 09/06/2015 Pure hypercholesterolemia 09/06/2015 Obstructive sleep apnea 09/06/2015 History of artificial joint 11/09/2014 Arthralgia of shoulder 02/17/2014 Primary localized osteoarthrosis of shoulder reg ion 10/19/2010 Current Treatment and Therapy Plans No current plan information found. Past Treatment and Therapy Plans Lifetime Dose Tracking * Chemical Lifetime Dose Automatic Entry Manual Entr y Fluoro Time 1.9 minutes 1.9 minutes 0 minutes Air kerma at the reference point (Ka,r) 8.2 mGy 8 .2 mGy 0 mGy Resolved Problems Problem Noted Date Diagnosed Date Resolved Date Hip pain, bilateral 03/24/2019 02/12/20 22 GERD (gastroesophageal reflux disease) 07/06/2016 02/11/2022 CAD (coronary artery disease) 04/18/2016 02/11/2022 Angina pectoris 04/04/2016 02/11/2022
--- OUTSIDE RECORDS SUMMARY | 2024-10-13 08:38 | XMS_ITS | Encounter Summary ---
Author Organization [facility] Facility Care Team Providers Care Paragliding Instructor Name Role Phone Dillon Lee MD Primary Care Provider +[phone] Tere Quispe RN Unavailable [phone] Emily Ryan MA Unavailable Nohemi Ocampo LPN Unavailable +[phone] Jurgen Davis MD Unavailable + [phone] Dillon Lee MD Primary Care Provider +[phone] Jurgen Davis MD Unavailable + [phone] Dillon Lee MD Primary Care Provider +[phone] Nohemi Ocampo LPN Unavailable +[phone] Valeriano Landa MD Primary Care Provider [phone] Encounter Details Date Type Department Care Team (Latest Contact Info) Description 02/14/2017 Orders Only [facility] CLINCONV ProviderFelicity MD [address] [place] [address] Social History Tobacco Use Types Packs/Day Years Used Date Smoking Tobacco: Never Comments Unknown Sex and Gender Information Value Date Recorded Sex Assigned at Not on file Legal Sex Female 1:11 AM PROCESS STEWARD Gender Identity Female 09/07/2022 5:09 AM PROCESS STEWARD Sexual Orientation Straight 09/07/2022 5: 09 AM PROCESS STEWARD documented as of this encounter Plan of Treatment Not on file documented as of this encounter Procedures Procedure Name Priority Date/Time Associated Diagnosis Comments AUDIOLOGY RECORD 02/14/2017 12:0 0 AM CDT documented in this encounter Results * AUDIOLOGY RECORD (02/14/2017 12:00 AM CDT) Narrative 02/14/2017 12:00 AM CDT Ordered by an unspecified provider. us Historical Provider NURSING COMMUNICATION Fin al Result documented in this encounter Visit Diagnoses Not on filedocumented in this encounter Additional Health Concerns Infection Onset Date Last Indicated Resolved Time COVID: Suspected 09/06/2021 09/06/2021 09/07/2021 3:05 AM PROCESS STEWARD COVID: Suspected 09/06/2021 09/06/2021 09/07/2021 6:32 AM PROCESS STEWARD COVID: Suspected 01/13/2022 01/13/2022 01/13/2022 4:30 PM [...] COVID: Suspected 06/06/2023 06/06/2023 06/06/2023 8:20 AM PROCESS STEWARD COVID: Suspected 06/06/2023 06/06/2023 06/06/2023 5:51 PM PROCESS STEWARD COVID19 06/06/2023 06/06/2023 06/16/2023 3:05 AM PROCESS STEWARD COVID: Suspected 12/17/2023 12/17/2023 12/17/2023 12:47 PM CDT COVID: Suspected 09/15/2024 09/15/2024 09/15/2024 10:27 AM CDT COVID19 09/15/2024 09/15/2024 09/25/2024 3:07 AM CDT COVID: Recovered Comment:Added based on recent COVID infection. 09/25/2024 10/10/2024 documented as of this encounter Care Teams Paragliding Instructor Relationship Specialty Start Date End Date Dillon Lee MD PCP - General Family Medicine 05/10/18 02/05/19 Jurgen Davis MD [address] [place] [address] [address] [place] [address] PCP - Cardiology Interventional Cardiology 02/06/19 06/17/19 Dillon Lee MD PCP - General Family Medicine 02/24/19 06/17/19 Dillon Lee MD PCP - General Family Medicine 06/18/19 12/27/22 Valeriano Landa MD [address] [place] [address] [address] [place] [address] PCP - General Family Medicine 12/28/22 Tere Quispe RN CJR Outpatient Customer Success Advocate 07/25/18 10/30/18 Emily Ryan MA [address] [place] [address] ACO Care Early Intervention School Psychologist 08/06/18 08/14/18 Nohemi Ocampo, TAMMIE [address] [place] [address] [address] [place] [address] Program Management Specialist 08/16/18 09/25/18 Jurgen Davis MD [address] [place] [address] [address] [place] [address] Concrete Block Plant Supervisor Interventional Cardiology 02/25/19 06/17/19 Nohemi Ocampo LPN [address] [place] [address] [address] [place] [address] Program Management Specialist 02/13/22 documented as of this encounter
--- OUTSIDE RECORDS SUMMARY | 2024-10-13 08:38 | XMS_ITS | Encounter Summary ---
Author Organization [facility] Facility Care Team Providers Care Side Seam Machine Operator Name Role Phone Dillon Lee MD Primary Care Provider + [phone] Tere Quispe RN Unavailable [phone] Emily Ryan MA Unavailable Nohemi Ocampo LPN Unavailable +[phone] Jurgen Davis MD Unavailable [phone] Dillon Lee MD Primary Care Provider +[phone] Jurgen Davis MD Unavailable + [phone] Dillon Lee MD Primary Care Provider +[phone] Nohemi Ocampo LPN Unavailable +[phone] Valeriano Landa MD Primary Care Provider [phone] Encounter Details Date Type Department Care Team (Latest Contact Info) Description 05/12/2016 Orders Only [facility] CLINCONV ProviderFelicity MD [address] [place] [address] Social History Tobacco Use Types Packs/Day Years Used Date Smoking Tobacco: Never Comments Unknown Sex and Gender Information Value Date Recorded Sex Assigned at Not on file Legal Sex Female 1:11 AM FIREBREAK CUTTER Gender Identity Female 09/07/2022 5:09 AM FIREBREAK CUTTER Sexual Orientation Straight 09/07/2022 5: 09 AM FIREBREAK CUTTER documented as of this encounter Plan of Treatment Not on file documented as of this encounter Procedures Procedure Name Priority Date/Time Associated Diagnosis Comments CARDIOLOGY REPORT 05/12/2016 12: 00 AM FIREBREAK CUTTER documented in this encounter Results * CARDIOLOGY REPORT (05/12/2016 12:00 AM FIREBREAK CUTTER) Anatomical Region Laterality Modality Other Narrative 05/12/2016 12:00 AM FIREBREAK CUTTER Ordered by an unspecified provider. us Historical Provider CV CARDIAC SERVICES SIXTO CASTRO Final Result documented in this encounter Visit Diagnoses Not on filedocumented in this encounter Additional Health Concerns Infection Onset Date Last Indicated Resolved Time COVID: Suspected 09/06/2021 09/06/2021 09/07/2021 3:05 AM FIREBREAK CUTTER COVID: Suspected 09/06/2021 09/06/2021 09/07/2021 6:32 AM FIREBREAK CUTTER COVID: Suspected 01/13/2022 01/13/2022 01/13/2022 4:30 PM [...] COVID: Suspected 06/06/2023 06/06/2023 06/06/2023 8:20 AM FIREBREAK CUTTER COVID: Suspected 06/06/2023 06/06/2023 06/06/2023 5:51 PM FIREBREAK CUTTER COVID19 06/06/2023 06/06/2023 06/16/2023 3:05 AM FIREBREAK CUTTER COVID: Suspected 12/17/2023 12/17/2023 12/17/2023 12:47 PM CDT COVID: Suspected 09/15/2024 09/15/2024 09/15/2024 10:27 AM CDT COVID19 09/15/2024 09/15/2024 09/25/2024 3:07 AM CDT COVID: Recovered Comment:Added based on recent COVID infection. 09/25/2024 10/10/2024 documented as of this encounter Care Teams Side Seam Machine Operator Relationship Specialty Start Date End Date Dillon Lee MD PCP - General Family Medicine 05/10/18 02/05/19 Jurgen Davis MD [address] [place] [address] [address] [place] [address] PCP - Cardiology Interventional Cardiology 02/06/19 06/17/19 Dillon Lee MD PCP - General Family Medicine 02/24/19 06/17/19 Dillon Lee MD PCP - General Family Medicine 06/18/19 12/27/22 Valeriano Landa MD [address] [place] [address] [address] [place] [address] PCP - General Family Medicine 12/28/22 Tere Quispe RN CJR Outpatient Bluing Oven Tender 07/25/18 10/30/18 Emily Ryan MA [address] [place] [address] ACO Care Heading And Priming Tool Setter 08/06/18 08/14/18 Nohemi Ocampo, TAMMIE [address] [place] [address] [address] [place] [address] Director Selection And Administration 08/16/18 09/25/18 Jurgen Davis MD [address] [place] [address] [address] [place] [address] Patient Access Coordinator Interventional Cardiology 02/25/19 06/17/19 Nohemi Ocampo LPN [address] [place] [address] [address] [place] [address] Director Selection And Administration 02/13/22 documented as of this encounter
--- OUTSIDE RECORDS SUMMARY | 2024-10-13 08:38 | XMS_ITS | Encounter Summary ---
Author Organization [facility] Facility Care Team Providers Care Ice Cream Freezer Name Role Phone Dillon Lee MD Primary Care Provider +[phone] Tere Quispe RN Unavailable +[phone] Emily Ryan MA Unavailable Nohemi Ocampo LPN Unavailable +[phone] Jurgen Davis MD Unavailable + [phone] Dillon Lee MD Primary Care Provider +[phone] Jurgen Davis MD Unavailable + [phone] Dillon Lee MD Primary Care Provider +[phone] Nohemi Ocampo LPN Unavailable +[phone] Valeriano Landa MD Primary Care Provider +[phone] Encounter Details Date Type Department Care Team (Latest Contact Info) Description 04/05/2017 Orders Only [facility] CLINCONV ProviderFelicity MD [address] [place] [address] Social History Tobacco Use Types Packs/Day Years Used Date Smoking Tobacco: Never Comments Unknown Sex and Gender Information Value Date Recorded Sex Assigned at Not on file Legal Sex Female 1:11 AM EMBEDDED ENGINEER Gender Identity Female 09/07/2022 5:09 AM EMBEDDED ENGINEER Sexual Orientation Straight 09/07/2022 5: 09 AM EMBEDDED ENGINEER documented as of this encounter Plan of Treatment Not on file documented as of this encounter Procedures Procedure Name Priority Date/Time Associated Diagnosis Comments PROCEDURE - RESULT 04/05/2017 12 :00 AM CDT documented in this encounter Results * PROCEDURE - RESULT (04/05/2017 12:00 AM CDT) Narrative 04/05/2017 12:00 AM CDT Ordered by an unspecified provider. us Historical Provider Final Res ult documented in this encounter Visit Diagnoses Not on filedocumented in this encounter Additional Health Concerns Infection Onset Date Last Indicated Resolved Time COVID: Suspected 09/06/2021 09/06/2021 09/07/2021 3:05 AM EMBEDDED ENGINEER COVID: Suspected 09/06/2021 09/06/2021 09/07/2021 6:32 AM EMBEDDED ENGINEER COVID: Suspected 01/13/2022 01/13/2022 01/13/2022 4:30 [...] COVID: Suspected 06/06/2023 06/06/2023 06/06/2023 8:20 AM EMBEDDED ENGINEER COVID: Suspected 06/06/2023 06/06/2023 06/06/2023 5:51 PM EMBEDDED ENGINEER COVID19 06/06/2023 06/06/2023 06/16/2023 3:05 AM EMBEDDED ENGINEER COVID: Suspected 12/17/2023 12/17/2023 12/17/2023 12:47 PM CDT COVID: Suspected 09/15/2024 09/15/202409/15/2024 10:27 AM CDT COVID19 09/15/2024 09/15/2024 09/25/2024 3:07 AM CDT COVID: Recovered Comment:Added based on recent COVID infection. 09/25/2024 10/10/2024 documented as of this encounter Care Teams Ice Cream Freezer Relationship Specialty Start Date End Date Dillon Lee MD PCP - General Family Medicine 05/10/18 02/05/19 Jurgen Davis MD [address] [place] [address] [address] [place] [address] PCP - Cardiology Interventional Cardiology 02/06/19 06/17/19 Dillon Lee MD PCP - General Family Medicine 02/24/19 06/17/19 Dillon Lee MD PCP - General Family Medicine 06/18/19 12/27/22 Valeriano Landa MD [address] [place] [address] [address] [place] [address] PCP - General Family Medicine 12/28/22 Tere Quispe RN CJR Outpatient Finisher Cold Rolling 07/25/18 10/30/18 Emily Ryan MA [address] [place] [address] ACO Care Biometrics Specialist 08/06/18 08/14/18 Nohemi Ocampo LPN [address] [place] [address] [address] [place] [address] Worm Picker 08/16/18 09/25/18 Jurgen Davis MD [address] [place] [address] [address] [place] [address] Grain Loader Interventional Cardiology 02/25/19 06/17/19 Nohemi Ocampo LPN [address] [place] [address] Worm Picker 02/13/22 documented as of this encounter
--- OUTSIDE RECORDS SUMMARY | 2024-10-13 08:38 | XMS_ITS | Encounter Summary ---
Author Organization [facility] Facility Care Team Providers Care Personal Security Specialist Name Role Phone Dillon Lee MD Primary Care Provider +[phone] Tere Quispe RN Unavailable +[phone] Emily Ryan MA Unavailable Nohemi Ocampo LPN Unavailable +[phone] Jurgen Davis MD Unavailable [phone] Dillon Lee MD Primary Care Provider +[phone] Jurgen Davis MD Unavailable + [phone] Dillon Lee MD Primary Care Provider +[phone] Nohemi Ocampo LPN Unavailable +[phone] Valeriano Landa MD Primary Care Provider +[phone] Encounter Details Date Type Department Care Team (Latest Contact Info) Description 05/16/2016 Orders Only [facility] CLINCONV ProviderFelicity MD [address] [place] [address] Social History Tobacco Use Types Packs/Day Years Used Date Smoking Tobacco: Never Comments Unknown Sex and Gender Information Value Date Recorded Sex Assigned at Not on file Legal Sex Female 1:11 AM WILDLIFE POLICY PROFESSIONAL Gender Identity Female 09/07/2022 5:09 AM WILDLIFE POLICY PROFESSIONAL Sexual Orientation Straight 09/07/2022 5: 09 AM WILDLIFE POLICY PROFESSIONAL documented as of this encounter Plan of Treatment Not on file documented as of this encounter Procedures Procedure Name Priority Date/Time Associated Diagnosis Comments CARDIOLOGY REPORT 05/16/2016 12: 00 AM WILDLIFE POLICY PROFESSIONAL documented in this encounter Results * CARDIOLOGY REPORT (05/16/2016 12:00 AM WILDLIFE POLICY PROFESSIONAL) Anatomical Region Laterality Modality Other Narrative 05/16/2016 12:00 AM WILDLIFE POLICY PROFESSIONAL Ordered by an unspecified provider. us Historical Provider CV CARDIAC SERVICES SIXTO CASTRO Final Result documented in this encounter Visit Diagnoses Not on filedocumented in this encounter Additional Health Concerns Infection Onset Date Last Indicated Resolved Time COVID: Suspected 09/06/2021 09/06/2021 09/07/2021 3:05 AM WILDLIFE POLICY PROFESSIONAL COVID: Suspected 09/06/2021 09/06/2021 09/07/2021 6:32 AM WILDLIFE POLICY PROFESSIONAL COVID: Suspected 01/13/2022 01/13/2022 01/13/2022 4:30 PM [...] COVID: Suspected 06/06/2023 06/06/2023 06/06/2023 8:20 AM WILDLIFE POLICY PROFESSIONAL COVID: Suspected 06/06/2023 06/06/2023 06/06/2023 5:51 PM WILDLIFE POLICY PROFESSIONAL COVID19 06/06/2023 06/06/2023 06/16/2023 3:05 AM WILDLIFE POLICY PROFESSIONAL COVID: Suspected 12/17/2023 12/17/2023 12/17/2023 12:47 PM CDT COVID: Suspected 09/15/2024 09/15/2024 09/15/2024 10:27 AM CDT COVID19 09/15/2024 09/15/2024 09/25/2024 3:07 AM CDT COVID: Recovered Comment:Added based on recent COVID infection. 09/25/2024 10/10/2024 documented as of this encounter Care Teams Personal Security Specialist Relationship Specialty Start Date End Date Dillon Lee MD PCP - General Family Medicine 05/10/18 02/05/19 Jurgen Davis MD [address] [place] [address] [address] [place] [address] PCP - Cardiology Interventional Cardiology 02/06/19 06/17/19 Dillon Lee MD PCP - General Family Medicine 02/24/19 06/17/19 Dillon Lee MD PCP - General Family Medicine 06/18/19 12/27/22 Valeriano Landa MD [address] [place] [address] [address] [place] [address] PCP - General Family Medicine 12/28/22 Tere Quispe RN CJR Outpatient J2Ee Java Developer 07/25/18 10/30/18 Emily Ryan MA [address] [place] [address] ACO Care Project Archivist 08/06/18 08/14/18 Nohemi Ocampo, TAMMIE [address] [place] [address] [address] [place] [address] Canvas Products Sales Representative 08/16/18 09/25/18 Jurgen Davis MD [address] [place] [address] [address] [place] [address] Manager Supply Chain Planning Interventional Cardiology 02/25/19 06/17/19 Nohemi Ocampo LPN [address] [place] [address] [address] [place] [address] Canvas Products Sales Representative 02/13/22 documented as of this encounter
--- OUTSIDE RECORDS SUMMARY | 2024-10-13 08:38 | XMS_ITS | Encounter Summary ---
Author Organization [facility] Facility Care Team Providers Care Supervisor Drying Name Role Phone Dillon Lee MD Primary Care Provider +[phone] Tere Quispe RN Unavailable +[phone] Emily Ryan MA Unavailable Nohemi Ocampo LPN Unavailable +[phone] Jurgen Davis MD Unavailable + [phone] Dillon Lee MD Primary Care Provider +[phone] Jurgen Davis MD Unavailable + [phone] Dillon Lee MD Primary Care Provider +[phone] Nohemi Ocampo LPN Unavailable +[phone] Valeriano Landa MD Primary Care Provider +[phone] Encounter Details Date Type Department Care Team (Latest Contact Info) Description 05/01/2016 Orders Only [facility] CLINCONV ProviderFelicity MD [address] [place] [address] Social History Tobacco Use Types Packs/Day Years Used Date Smoking Tobacco: Never Comments Unknown Sex and Gender Information Value Date Recorded Sex Assigned at Not on file Legal Sex Female 1:11 AM FRATERNITY HOUSE COOK Gender Identity Female 09/07/2022 5:09 AM FRATERNITY HOUSE COOK Sexual Orientation Straight 09/07/2022 5: 09 AM FRATERNITY HOUSE COOK documented as of this encounter Plan of Treatment Not on file documented as of this encounter Procedures Procedure Name Priority Date/Time Associated Diagnosis Comments CARDIOLOGY REPORT 05/01/2016 12: 00 AM CDT documented in this encounter Results * CARDIOLOGY REPORT (05/01/2016 12:00 AM CDT) Anatomical Region Laterality Modality Other Narrative 05/01/2016 12:00 AM CDT Ordered by an unspecified provider. us Historical Provider CV CARDIAC SERVICES SIXTO CASTRO Final Result documented in this encounter Visit Diagnoses Not on filedocumented in this encounter Additional Health Concerns Infection Onset Date Last Indicated Resolved Time COVID: Suspected 09/06/2021 09/06/2021 09/07/2021 3:05 AM FRATERNITY HOUSE COOK COVID: Suspected 09/06/2021 09/06/2021 09/07/2021 6:32 AM FRATERNITY HOUSE COOK COVID: Suspected 01/13/2022 01/13/2022 01/13/2022 4:30 PM [...] COVID: Suspected 06/06/2023 06/06/2023 06/06/2023 8:20 AM FRATERNITY HOUSE COOK COVID: Suspected 06/06/2023 06/06/2023 06/06/2023 5:51 PM FRATERNITY HOUSE COOK COVID19 06/06/2023 06/06/2023 06/16/2023 3:05 AM FRATERNITY HOUSE COOK COVID: Suspected 12/17/2023 12/17/2023 12/17/2023 12:47 PM CDT COVID: Suspected 09/15/2024 09/15/2024 09/15/2024 10:27 AM CDT COVID19 09/15/2024 09/15/2024 09/25/2024 3:07 AM CDT COVID: Recovered Comment:Added based on recent COVID infection. 09/25/2024 10/10/2024 documented as of this encounter Care Teams Supervisor Drying Relationship Specialty Start Date End Date Dillon Lee MD PCP - General Family Medicine 05/10/18 02/05/19 Jurgen Davis MD [address] [place] [address] [address] [place] [address] PCP - Cardiology Interventional Cardiology 02/06/19 06/17/19 Dillon Lee MD PCP - General Family Medicine 02/24/19 06/17/19 Dillon Lee MD PCP - General Family Medicine 06/18/19 12/27/22 Valeriano Landa MD [address] [place] [address] [address] [place] [address] PCP - General Family Medicine 12/28/22 Tere Quispe, RN CJR Outpatient Tool Polishing Machine Operator 07/25/18 10/30/18 Emily Ryan MA [address] [place] [address] ACO Care Health Safety Instructor 08/06/18 08/14/18 Nohemi Ocampo LPN [address] [place] [address] [address] Back Hanger 08/16/18 09/25/18 Jurgen Davis MD [address] [place] [address] [address] [place] [address] Hoop Cutter Interventional Cardiology 02/25/19 06/17/19 Nohemi Ocampo LPN [address] [place] [address] [address] [place] [address] Back Hanger 02/13/22 documented as of this encounter
--- OUTSIDE RECORDS SUMMARY | 2024-10-13 08:38 | XMS_ITS | Encounter Summary ---
Author Organization [facility] Facility Care Team Providers Care Plant Operations Manager Name Role Phone Dillon Lee MD Primary Care Provider +[phone] Tere Quispe RN Unavailable +[phone] Emily Ryan MA Unavailable Nohemi Ocampo LPN Unavailable +[phone] Jurgen Davis MD Unavailable [phone] Dillon Lee MD Primary Care Provider +[phone] Jurgen Davis MD Unavailable + [phone] Dillon Lee MD Primary Care Provider +[phone] Nohemi Ocampo LPN Unavailable +[phone] Valeriano Landa MD Primary Care Provider +[phone] Encounter Details Date Type Department Care Team (Latest Contact Info) Description 05/07/2018 Orders Only [facility] CLINCONV ProviderFelicity MD [address] [place] [address] Social History Tobacco Use Types Packs/Day Years Used Date Smoking Tobacco: Never Comments Unknown Sex and Gender Information Value Date Recorded Sex Assigned at Not on file Legal Sex Female 1:11 AM COMMUNICATIONS SUPERINTENDENT Gender Identity Female 09/07/2022 5:09 AM COMMUNICATIONS SUPERINTENDENT Sexual Orientation Straight 09/07/2022 5: 09 AM COMMUNICATIONS SUPERINTENDENT documented as of this encounter Plan of Treatment Not on file documented as of this encounter Procedures Procedure Name Priority Date/Time Associated Diagnosis Comments PROCEDURE - RESULT 05/07/2018 12 :00 AM COMMUNICATIONS SUPERINTENDENT documented in this encounter Results * PROCEDURE - RESULT (05/07/2018 12:00 AM COMMUNICATIONS SUPERINTENDENT) Narrative 05/07/2018 12:00 AM COMMUNICATIONS SUPERINTENDENT Ordered by an unspecified provider. us Historical Provider Final Res ult documented in this encounter Visit Diagnoses Not on filedocumented in this encounter Additional Health Concerns Infection Onset Date Last Indicated Resolved Time COVID: Suspected 09/06/2021 09/06/2021 09/07/2021 3:05 AM COMMUNICATIONS SUPERINTENDENT COVID: Suspected 09/06/2021 09/06/2021 09/07/2021 6:32 AM COMMUNICATIONS SUPERINTENDENT COVID: Suspected 01/13/2022 01/13/2022 01/13/2022 4:30 PM [...] COVID: Suspected 06/06/2023 06/06/2023 06/06/2023 8:20 AM COMMUNICATIONS SUPERINTENDENT COVID: Suspected 06/06/2023 06/06/2023 06/06/2023 5:51 PM COMMUNICATIONS SUPERINTENDENT COVID19 06/06/2023 06/06/2023 06/16/2023 3:05 AM COMMUNICATIONS SUPERINTENDENT COVID: Suspected 12/17/2023 12/17/2023 12/17/2023 12:47 PM CDT COVID: Suspected 09/15/2024 09/15/2024 09/15/2024 10:27 AM CDT COVID19 09/15/2024 09/15/2024 09/25/2024 3:07 AM CDT COVID: Recovered Comment:Added based on recent COVID infection. 09/25/2024 10/10/2024 documented as of this encounter Care Teams Plant Operations Manager Relationship Specialty Start Date End Date Dillon Lee MD PCP - General Family Medicine 05/10/18 02/05/19 Jurgen Davis MD [address] [place] [address] [address] [place] [address] PCP - Cardiology Interventional Cardiology 02/06/19 06/17/19 Dillon Lee MD PCP - General Family Medicine 02/24/19 06/17/19 Dillon Lee MD PCP - General Family Medicine 06/18/19 12/27/22 Valeriano Landa MD [address] [place] [address] [address] [place] [address] PCP - General Family Medicine 12/28/22 Tere Quispe, RN CJR Outpatient Trim Attacher 07/25/18 10/30/18 Emily Ryan MA [address] [place] [address] ACO Care Window Framer 08/06/18 08/14/18 Nhoemi Ocampo LPN [address] [place] [address] [address] [place] [address] Wire Spooler 08/16/18 09/25/18 Jurgen Davis MD [address] [place] [address] Twister Hand Interventional Cardiology 02/25/19 06/17/19 Nohemi Ocampo LPN [address] [place] [address] Wire Spooler 02/13/22 documented as of this encounter
--- OUTSIDE RECORDS SUMMARY | 2024-10-13 08:38 | XMS_ITS | Encounter Summary ---
Author Organization [facility] Facility Care Team Providers Care Family Development Extension Specialist Name Role Phone Dillon Lee MD Primary Care Provider +[phone] Tere Quispe RN Unavailable +[phone] Emily Ryan MA Unavailable Nohemi Ocampo LPN Unavailable +[phone] Jurgen Davis MD Unavailable [phone] Dillon Lee MD Primary Care Provider +[phone] Jurgen Davis MD Unavailable + [phone] Dillon Lee MD Primary Care Provider +[phone] Nohemi Ocampo LPN Unavailable +[phone] Valeriano Landa MD Primary Care Provider +[phone] Encounter Details Date Type Department Care Team (Latest Contact Info) Description 05/17/2016 Orders Only [facility] CLINCONV ProviderFelicity MD [address] [place] [address] Social History Tobacco Use Types Packs/Day Years Used Date Smoking Tobacco: Never Comments Unknown Sex and Gender Information Value Date Recorded Sex Assigned at Not on file Legal Sex Female 1:11 AM BATH STEWARD Gender Identity Female 09/07/2022 5:09 AM BATH STEWARD Sexual Orientation Straight 09/07/2022 5: 09 AM BATH STEWARD documented as of this encounter Plan of Treatment Not on file documented as of this encounter Procedures Procedure Name Priority Date/Time Associated Diagnosis Comments CARDIOLOGY REPORT 05/17/2016 12: 00 AM BATH STEWARD CARDIOLOGY REPORT 05/17/2016 12: 00 AM BATH STEWARD documented in this encounter Results * CARDIOLOGY REPORT (05/17/2016 12:00 AM BATH STEWARD) Anatomical Region Laterality Modality Other Narrative 05/17/2016 12:00 AM BATH STEWARD Ordered by an unspecified provider. us Historical Provider CV CARDIAC SERVICES PROCE DURES Final Result * CARDIOLOGY REPORT (05/17/2016 12:00 AM BATH STEWARD) Anatomical Region Laterality Modality Other Narrative 05/17/2016 12:00 AM BATH STEWARD Ordered by an unspecified provider. Historical Provider CV CARDIAC SERVICES PROCE DURES Final Result documented in this encounter Visit Diagnoses Not on filedocumented in this encounter Additional Health Concerns Infection Onset Date Last Indicated Resolved Time COVID: Suspected 09/06/2021 09/06/2021 09/07/2021 3:05 AM BATH STEWARD COVID: Suspected 09/06/2021 09/06/2021 09/07/2021 6:32 AM BATH STEWARD COVID: Suspected 01/13/2022 01/13/2022 01/13/2022 4:30 [...] COVID: Suspected 06/06/2023 06/06/2023 06/06/2023 8:20 AM BATH STEWARD COVID: Suspected 06/06/2023 06/06/2023 06/06/2023 5:51 PM BATH STEWARD COVID19 06/06/2023 06/06/2023 06/16/2023 3:05 AM BATH STEWARD COVID: Suspected 12/17/2023 12/17/2023 12/17/2023 12:47 PM CDT COVID: Suspected 09/15/2024 09/15/2024 09/15/2024 10:27 AM CDT COVID19 09/15/2024 09/15/2024 09/25/2024 3:07 AM CDT COVID: Recovered Comment:Added based on recent COVID infection. 09/25/2024 10/10/2024 documented as of this encounter Care Teams Family Development Extension Specialist Relationship Specialty Start Date End Date Dillon Lee MD PCP - General Family Medicine 05/10/18 02/05/19 Jurgen Davis MD [address] [place] [address] [address] [place] [address] PCP - Cardiology Interventional Cardiology 02/06/19 06/17/19 Dillon Lee MD PCP - General Family Medicine 02/24/19 06/17/19 Dillon Lee MD PCP - General Family Medicine 06/18/19 12/27/22 Valeriano Landa MD [address] [place] [address] [address] [place] [address] PCP - General Family Medicine 12/28/22 Tere Quispe RN CJR Outpatient Cabinetmaker Helper 07/25/18 10/30/18 Emily Ryan MA [address] [place] [address] ACO Care Milk Drier 08/06/18 08/14/18 Nohemi Ocampo LPN [address] [place] [address] [address] [place] [address] Freezer Unloader 08/16/18 09/25/18 Jurgen Davis MD [address] [place] [address] [address] [place] [address] Obstetrics Nurse Practitioner Interventional Cardiology 02/25/19 06/17/19 Nohemi Ocampo LPN [address] [place] [address] [address] [place] [address] Freezer Unloader 02/13/22 documented as of this encounter
--- OUTSIDE RECORDS SUMMARY | 2024-10-13 08:38 | XMS_ITS | Encounter Summary ---
Author Organization [facility] Facility Care Team Providers Care Control Room Tender Name Role Phone Dillon Lee MD Primary Care Provider + [phone] Tere Quispe RN Unavailable +[phone] Emily Ryan MA Unavailable Nohemi Ocampo LPN Unavailable +[phone] Jurgen Davis MD Unavailable [phone] Dillon Lee MD Primary Care Provider +[phone] Jurgen Davis MD Unavailable + [phone] Dillon Lee MD Primary Care Provider +[phone] Nohemi Ocampo LPN Unavailable +[phone] Valeriano Landa MD Primary Care Provider [phone] Encounter Details Date Type Department Care Team (Latest Contact Info) Description 05/15/2016 Orders Only [facility] CLINCONV ProviderFelicity MD [address] [place] [address] Social History Tobacco Use Types Packs/Day Years Used Date Smoking Tobacco: Never Comments Unknown Sex and Gender Information Value Date Recorded Sex Assigned at Not on file Legal Sex Female 1:11 AM AFRICAN STUDIES PROFESSOR Gender Identity Female 09/07/2022 5:09 AM AFRICAN STUDIES PROFESSOR Sexual Orientation Straight 09/07/2022 5: 09 AM AFRICAN STUDIES PROFESSOR documented as of this encounter Plan of Treatment Not on file documented as of this encounter Procedures Procedure Name Priority Date/Time Associated Diagnosis Comments CARDIOLOGY REPORT 05/15/2016 12: 00 AM AFRICAN STUDIES PROFESSOR CARDIOLOGY REPORT 05/15/2016 12: 00 AM AFRICAN STUDIES PROFESSOR documented in this encounter Results * CARDIOLOGY REPORT (05/15/2016 12:00 AM AFRICAN STUDIES PROFESSOR) Anatomical Region Laterality Modality Other Narrative 05/15/2016 12:00 AM AFRICAN STUDIES PROFESSOR Ordered by an unspecified provider. us Historical Provider CV CARDIAC SERVICES PROCE DURES Final Result * CARDIOLOGY REPORT (05/15/2016 12:00 AM AFRICAN STUDIES PROFESSOR) Anatomical Region Laterality Modality Other Narrative 05/15/2016 12:00 AM AFRICAN STUDIES PROFESSOR Ordered by an unspecified provider. Historical Provider CV CARDIAC SERVICES PROCE DURES Final Result documented in this encounter Visit Diagnoses Not on filedocumented in this encounter Additional Health Concerns Infection Onset Date Last Indicated Resolved Time COVID: Suspected 09/06/2021 09/06/2021 09/07/2021 3:05 AM AFRICAN STUDIES PROFESSOR COVID: Suspected 09/06/2021 09/06/2021 09/07/2021 6:32 AM AFRICAN STUDIES PROFESSOR COVID: Suspected 01/13/2022 01/13/2022 01/13/2022 4:30 PM [...] COVID: Suspected 06/06/2023 06/06/2023 06/06/2023 8:20 AM AFRICAN STUDIES PROFESSOR COVID: Suspected 06/06/2023 06/06/2023 06/06/2023 5:51 PM AFRICAN STUDIES PROFESSOR COVID19 06/06/2023 06/06/2023 06/16/2023 3:05 AM AFRICAN STUDIES PROFESSOR COVID: Suspected 12/17/2023 12/17/2023 12/17/2023 12:47 PM CDT COVID: Suspected 09/15/2024 09/15/2024 09/15/2024 10:27 AM CDT COVID19 09/15/2024 09/15/2024 09/25/2024 3:07 AM CDT COVID: Recovered Comment:Added based on recent COVID infection. 09/25/2024 10/10/2024 documented as of this encounter Care Teams Control Room Tender Relationship Specialty Start Date End Date Dillon Lee MD PCP - General Family Medicine 05/10/18 02/05/19 Jurgen Davis MD [address] [place] [address] [address] [place] [address] PCP - Cardiology Interventional Cardiology 02/06/19 06/17/19 Dillon Lee MD PCP - General Family Medicine 02/24/19 06/17/19 Dillon Lee MD PCP - General Family Medicine 06/18/19 12/27/22 Valeriano Landa MD [address] [place] [address] [address] [place] [address] PCP - General Family Medicine 12/28/22 Tere Quispe RN CJR Outpatient Principal Solutions Architect 07/25/18 10/30/18 Emily Ryan MA [address] [place] [address] ACO Care Aircraft General Repair Mechanic 08/06/18 08/14/18 Nohemi Ocampo LPN [address] [place] [address] [address] [place] [address] Cager Operator 08/16/18 09/25/18 Jurgen Davis MD [address] [place] [address] [address] [place] [address] Funeral Car Chauffeur Interventional Cardiology 02/25/19 06/17/19 Nohemi Ocampo LPN [address] [place] [address] [address] [place] [address] Cager Operator 02/13/22 documented as of this encounter
--- OUTSIDE RECORDS SUMMARY | 2024-10-13 08:38 | XMS_ITS | Encounter Summary ---
Author Organization [facility] Healthcare Address [address] [place] [address] Care Team Providers Care Surveyor Geodetic Name Role Phone Nohemi Ocampo LPN Unavailable [phone] Valeriano Landa MD Primary Care Provider [phone] Encounter Details Date Type Department Care Team (Late st Contact Info) Description 08/19/2024 Results Follow-Up [facility] Medical Group Cardiology [address] [place] [address] Ruy Florez MD [address] [id number] Social History Tobacco Use Types Packs/Day Years Used Date Smoking Tobacco: Never Smokeless Tobacco: Never Alcohol Use Standard Drinks/Week Comments No 0 (1 standard drink = 0.6 oz pur e alcohol) Humiliation, Afraid, Rape, and Kick questionnair e Answer Date Recorded Fear of Current or Ex-Partner No Emotionally Abused No 02/06/2019 Physically Abused No 02/06/2019 Sexually Abused No 02/06/2019 Social Connection and Isolat ion Panel [NHANES] Answer Date Recorded Frequency of Communication w ith Friends and Family More than three times a week 02/06/2019 Frequency of Social Gatherin gs with Friends and Family Once a week 02/06/2019 Attends Yazidi Services More than 4 times per year 02/06/2019 Active Member of Clubs or Organizations Yes 02/06/2019 Attends Club or Organization Meetings More than 4 times per year 02/06/2019 Marital Status 02/06/2019 AUDIT-C Answer Date Recorded Frequency of Alcohol Consumption Not on file 02/20/2022 Q2: How many drinks containi ng alcohol do you have on a typical day when you are drinking? Patient does not drink Frequency of Binge Drinking Not on file 01/31 Overall Financial Resource Strain (CARDIA) Answe r Date Recorded Difficulty of Paying Living Expenses Somewhat m[address] 02/06/2019 PHQ-2 Answer Date Recorded PHQ-2 Total Score (If total score is 3 or more points, staff should administer the PHQ-9) 1 04/15/2021 [facility] - Occupational Stress Questionnaire Answer Date Recorded Feeling of Stress Rather much 02/06/2019 Exercise Vital Sign Answer Date Recorde d Days of Exercise per Week 0 days 2018 Minutes of Exercise per Session 0 min 02/06/2019 Hunger Vital Sign Answer Date Recorded Worried About Running Out of Food in the Last Ye ar Never true 02/06/2019 Ran Out of Food in the Last Year Never true 02/06/2019 PRAPARE - Transportation Answer Date Re corded Lack of Transportation (Medical) No 02/06/2019 Lack of Transportation (Non-Medical) No 02/06/2019 Comments No Sex and Gender Information Value Date Recorded Sex Assigned at Not on file Legal Sex Female 1:11 AM STATISTICAL SECRETARY Gender Identity Female 09/07/2022 5:09 AM STATISTICAL SECRETARY Sexual Orientation Straight 09/07/2022 5: 09 AM STATISTICAL SECRETARY 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 09/25/2024 10/10/2024 documented as of this encounter Care Teams Surveyor Geodetic Relationship Specialty Start Date End Date Valeriano Landa MD [address] [place] [address] PCP - General Family Medicine 12/28/22 Nohemi Ocampo LPN [address] [place] [address] Acoustic Engineer 02/13/22 documented as of this encounter
--- OUTSIDE RECORDS SUMMARY | 2024-10-13 08:38 | XMS_ITS | Encounter Summary ---
Author Organization [facility] Facility Care Team Providers Care Patrol Judge Name Role Phone Dillon Lee MD Primary Care Provider [phone] Tere Quispe RN Unavailable [phone] Emily Ryan MA Unavailable Nohemi Ocampo LPN Unavailable +[phone] Jurgen Davis MD Unavailable [phone] Dillon Lee MD Primary Care Provider +[phone] Jurgen Davis MD Unavailable + [phone] Dillon Lee MD Primary Care Provider +[phone] Nohemi Ocampo LPN Unavailable +[phone] Valeriano Landa MD Primary Care Provider [phone] Encounter Details Date Type Department Care Team (Latest Contact Info) Description 05/14/2016 Orders Only [facility] CLINCONV ProviderFelicity MD [address] [place] [address] Social History Tobacco Use Types Packs/Day Years Used Date Smoking Tobacco: Never Comments Unknown Sex and Gender Information Value Date Recorded Sex Assigned at Not on file Legal Sex Female 1:11 AM NUTRITIONISTS Gender Identity Female 09/07/2022 5:09 AM NUTRITIONISTS Sexual Orientation Straight 09/07/2022 5: 09 AM NUTRITIONISTS documented as of this encounter Plan of Treatment Not on file documented as of this encounter Procedures Procedure Name Priority Date/Time Associated Diagnosis Comments CARDIOLOGY REPORT 05/14/2016 12: 00 AM NUTRITIONISTS documented in this encounter Results * CARDIOLOGY REPORT (05/14/2016 12:00 AM NUTRITIONISTS) Anatomical Region Laterality Modality Other Narrative 05/14/2016 12:00 AM NUTRITIONISTS Ordered by an unspecified provider. us Historical Provider CV CARDIAC SERVICES SIXTO CASTRO Final Result documented in this encounter Visit Diagnoses Not on filedocumented in this encounter Additional Health Concerns Infection Onset Date Last Indicated Resolved Time COVID: Suspected 09/06/2021 09/06/2021 09/07/2021 3:05 AM NUTRITIONISTS COVID: Suspected 09/06/2021 09/06/2021 09/07/2021 6:32 AM NUTRITIONISTS COVID: Suspected 01/13/2022 01/13/2022 01/13/2022 4:30 PM [...] COVID: Suspected 06/06/2023 06/06/2023 06/06/2023 8:20 AM NUTRITIONISTS COVID: Suspected 06/06/2023 06/06/2023 06/06/2023 5:51 PM NUTRITIONISTS COVID19 06/06/2023 06/06/2023 06/16/2023 3:05 AM NUTRITIONISTS COVID: Suspected 12/17/2023 12/17/2023 12/17/2023 12:47 PM CDT COVID: Suspected 09/15/2024 09/15/2024 09/15/2024 10:27 AM CDT COVID19 09/15/2024 09/15/2024 09/25/2024 3:07 AM CDT COVID: Recovered Comment:Added based on recent COVID infection. 09/25/2024 10/10/2024 documented as of this encounter Care Teams Patrol Judge Relationship Specialty Start Date End Date Dillon Lee MD PCP - General Family Medicine 05/10/18 02/05/19 Jurgen Davis MD [address] [place] [address] [address] [place] [address] PCP - Cardiology Interventional Cardiology 02/06/19 06/17/19 Dillon Lee MD PCP - General Family Medicine 02/24/19 06/17/19 Dillon Lee MD PCP - General Family Medicine 06/18/19 12/27/22 Valeriano Landa MD [address] [place] [address] [address] [place] [address] PCP - General Family Medicine 12/28/22 Tere Quispe RN CJR Outpatient Amusement Centre Manager 07/25/18 10/30/18 Emily Ryan MA [address] [place] [address] ACO Care Air Launch Weapons Technician 08/06/18 08/14/18 Nohemi Ocampo, TAMMIE [address] [place] [address] [address] [place] [address] Washer Machine 08/16/18 09/25/18 Jurgen Davis MD [address] [place] [address] [address] [place] [address] Digital Account Supervisor Interventional Cardiology 02/25/19 06/17/19 Nohemi Ocampo LPN [address] [place] [address] [address] [place] [address] Washer Machine 02/13/22 documented as of this encounter
--- OUTSIDE RECORDS SUMMARY | 2024-10-13 08:38 | XMS_ITS | Encounter Summary ---
Author Organization [facility] Facility Care Team Providers Care Debone Supervisor Name Role Phone Dillon Lee MD Primary Care Provider +[phone] Tere Quispe RN Unavailable [phone] Emily Ryan MA Unavailable Nohemi Ocampo LPN Unavailable +[phone] Jurgen Davis MD Unavailable + [phone] Dillon Lee MD Primary Care Provider +[phone] Jurgen Davis MD Unavailable + [phone] Dillon Lee MD Primary Care Provider +[phone] Nohemi Ocampo LPN Unavailable +[phone] Valeriano Landa MD Primary Care Provider [phone] Encounter Details Date Type Department Care Team (Latest Contact Info) Description 09/15/2016 Orders Only [facility] CLINCONV ProviderFelicity MD [address] [place] [address] Social History Tobacco Use Types Packs/Day Years Used Date Smoking Tobacco: Never Comments Unknown Sex and Gender Information Value Date Recorded Sex Assigned at Not on file Legal Sex Female 1:11 AM COOK ROAST Gender Identity Female 09/07/2022 5:09 AM COOK ROAST Sexual Orientation Straight 09/07/2022 5: 09 AM COOK ROAST documented as of this encounter Plan of Treatment Not on file documented as of this encounter Procedures Procedure Name Priority Date/Time Associated Diagnosis Comments PROCEDURE - RESULT 09/18/2016 12 :00 AM CDT documented in this encounter Results * PROCEDURE - RESULT (09/18/2016 12:00 AM CDT) Narrative 09/18/2016 12:00 AM CDT Ordered by an unspecified provider. us Historical Provider Final Res ult documented in this encounter Visit Diagnoses Not on filedocumented in this encounter Additional Health Concerns Infection Onset Date Last Indicated Resolved Time COVID: Suspected 09/06/2021 09/06/2021 09/07/2021 3:05 AM COOK ROAST COVID: Suspected 09/06/2021 09/06/2021 09/07/2021 6:32 AM COOK ROAST COVID: Suspected 01/13/2022 01/13/2022 01/13/2022 4:30 PM [...] COVID: Suspected 06/06/2023 06/06/2023 06/06/2023 8:20 AM COOK ROAST COVID: Suspected 06/06/2023 06/06/2023 06/06/2023 5:51 PM COOK ROAST COVID19 06/06/2023 06/06/2023 06/16/2023 3:05 AM COOK ROAST COVID: Suspected 12/17/2023 12/17/2023 12/17/2023 12:47 PM CDT COVID: Suspected 09/15/2024 09/15/202409/15/2024 10:27 AM CDT COVID19 09/15/2024 09/15/2024 09/25/2024 3:07 AM CDT COVID: Recovered Comment:Added based on recent COVID infection. 09/25/2024 10/10/2024 documented as of this encounter Care Teams Debone Supervisor Relationship Specialty Start Date End Date Dillon Lee MD PCP - General Family Medicine 05/10/18 02/05/19 Jurgen Davis MD [address] [place] [address] [address] [place] [address] PCP - Cardiology Interventional Cardiology 02/06/19 06/17/19 Dillon Lee MD PCP - General Family Medicine 02/24/19 06/17/19 Dillon Lee MD PCP - General Family Medicine 06/18/19 12/27/22 Valeriano Landa MD [address] [place] [address] [address] [place] [address] PCP - General Family Medicine 12/28/22 Tere Quispe RN CJR Outpatient Lawyer Criminal 07/25/18 10/30/18 Emily Ryan MA [address] [place] [address] ACO Care Reel Assembler 08/06/18 08/14/18 Nohemi Ocampo LPN [address] [place] [address] [address] [place] [address] Tank Shop Supervisor 08/16/18 09/25/18 Jurgen Davis MD [address] [place] [address] [address] [place] [address] Foreign Language Instructor Interventional Cardiology 02/25/19 06/17/19 Nohemi Ocampo LPN [address] [place] [address] Tank Shop Supervisor 02/13/22 documented as of this encounter
--- OUTSIDE RECORDS SUMMARY | 2024-10-13 08:38 | XMS_ITS | Encounter Summary ---
Author Organization [facility] Facility Care Team Providers Care Mink Slicer Name Role Phone Dillon Lee MD Primary Care Provider +[phone] Tere Quispe RN Unavailable [phone] Emily Ryan MA Unavailable Nohemi Ocampo LPN Unavailable +[phone] Jurgen Davis MD Unavailable + [phone] Dillon Lee MD Primary Care Provider +[phone] Jurgen Davis MD Unavailable + [phone] Dillon Lee MD Primary Care Provider +[phone] Nohemi Ocampo LPN Unavailable +[phone] Valeriano Landa MD Primary Care Provider [phone] Encounter Details Date Type Department Care Team (Latest Contact Info) Description 08/29/2016 Orders Only [facility] CLINCONV ProviderFelicity MD [address] [place] [address] Social History Tobacco Use Types Packs/Day Years Used Date Smoking Tobacco: Never Comments Unknown Sex and Gender Information Value Date Recorded Sex Assigned at Not on file Legal Sex Female 1:11 AM WILDLIFE ECOLOGIST Gender Identity Female 09/07/2022 5:09 AM WILDLIFE ECOLOGIST Sexual Orientation Straight 09/07/2022 5: 09 AM WILDLIFE ECOLOGIST documented as of this encounter Plan of Treatment Not on file documented as of this encounter Procedures Procedure Name Priority Date/Time Associated Diagnosis Comments CARDIOLOGY REPORT 08/30/2016 12: 00 AM WILDLIFE ECOLOGIST documented in this encounter Results * CARDIOLOGY REPORT (08/30/2016 12:00 AM WILDLIFE ECOLOGIST) Anatomical Region Laterality Modality Other Narrative 08/30/2016 12:00 AM WILDLIFE ECOLOGIST Ordered by an unspecified provider. us Historical Provider CV CARDIAC SERVICES SIXTO CASTRO Final Result documented in this encounter Visit Diagnoses Not on filedocumented in this encounter Additional Health Concerns Infection Onset Date Last Indicated Resolved Time COVID: Suspected 09/06/2021 09/06/2021 09/07/2021 3:05 AM WILDLIFE ECOLOGIST COVID: Suspected 09/06/2021 09/06/2021 09/07/2021 6:32 AM WILDLIFE ECOLOGIST COVID: Suspected 01/13/2022 01/13/2022 01/13/2022 4:30 PM [...] Suspected 06/06/2023 06/06/2023 06/06/2023 8:20 AM WILDLIFE ECOLOGIST COVID: Suspected 06/06/2023 06/06/2023 06/06/2023 5:51 PM WILDLIFE ECOLOGIST COVID19 06/06/2023 06/06/2023 06/16/2023 3:05 AM WILDLIFE ECOLOGIST COVID: Suspected 12/17/2023 12/17/2023 12/17/2023 12:47 PM CDT COVID: Suspected 09/15/2024 09/15/2024 09/15/2024 10:27 AM CDT COVID19 09/15/2024 09/15/2024 09/25/2024 3:07 AM CDT COVID: Recovered Comment:Added based on recent COVID infection. 09/25/2024 10/10/2024 documented as of this encounter Care Teams Mink Slicer Relationship Specialty Start Date End Date Dillon Lee MD PCP - General Family Medicine 05/10/18 02/05/19 Jurgen Davis MD [address] [place] [address] [address] [place] [address] PCP - Cardiology Interventional Cardiology 02/06/19 06/17/19 Dillon Lee MD PCP - General Family Medicine 02/24/19 06/17/19 Dillon Lee MD PCP - General Family Medicine 06/18/19 12/27/22 Valeriano Landa MD [address] [place] [address] [address] [place] [address] PCP - General Family Medicine 12/28/22 Tere Quispe RN CJR Outpatient Estimator And Drafter 07/25/18 10/30/18 Emily Ryan MA [address] [place] [address] ACO Care Hand Crown Pouncer 08/06/18 08/14/18 Nohemi Ocampo, TAMMIE [address] [place] [address] [address] [place] [address] Plate Painter Apprentice 08/16/18 09/25/18 Jurgen Davis MD [address] [place] [address] [address] [place] [address] Vp Ad Sales West Interventional Cardiology 02/25/19 06/17/19 Nohemi Ocampo LPN [address] [place] [address] [address] [place] [address] Plate Painter Apprentice 02/13/22 documented as of this encounter
--- OUTSIDE RECORDS SUMMARY | 2024-10-13 08:38 | XMS_ITS | Encounter Summary ---
Author Organization [facility] Facility Care Team Providers Care Insole Lip Turner Name Role Phone Dillon Lee MD Primary Care Provider +[phone] Tere Quispe RN Unavailable [phone] Emily Ryan MA Unavailable Nohemi Ocampo LPN Unavailable +[phone] Jurgen Davis MD Unavailable + [phone] Dillon Lee MD Primary Care Provider +[phone] Jurgen Davis MD Unavailable + [phone] Dillon Lee MD Primary Care Provider +[phone] Nohemi Ocampo LPN Unavailable +[phone] Valeriano Landa MD Primary Care Provider [phone] Encounter Details Date Type Department Care Team (Latest Contact Info) Description 03/15/2017 Orders Only [facility] CLINCONV ProviderFelicity MD [address] [place] [address] Social History Tobacco Use Types Packs/Day Years Used Date Smoking Tobacco: Never Comments Unknown Sex and Gender Information Value Date Recorded Sex Assigned at Not on file Legal Sex Female 1:11 AM RECYCLABLE PRODUCTS SORTER Gender Identity Female 09/07/2022 5:09 AM RECYCLABLE PRODUCTS SORTER Sexual Orientation Straight 09/07/2022 5: 09 AM RECYCLABLE PRODUCTS SORTER documented as of this encounter Plan of Treatment Not on file documented as of this encounter Procedures Procedure Name Priority Date/Time Associated Diagnosis Comments COLONOSCOPY - SCAN 03/15/2017 12 :00 AM CDT documented in this encounter Results * COLONOSCOPY - SCAN (03/15/2017 12:00 AM CDT) Narrative 03/15/2017 12:00 AM CDT Ordered by an unspecified provider. us Historical Provider Final Res ult documented in this encounter Visit Diagnoses Not on filedocumented in this encounter Additional Health Concerns Infection Onset Date Last Indicated Resolved Time COVID: Suspected 09/06/2021 09/06/2021 09/07/2021 3:05 AM RECYCLABLE PRODUCTS SORTER COVID: Suspected 09/06/2021 09/06/2021 09/07/2021 6:32 AM RECYCLABLE PRODUCTS SORTER COVID: Suspected 01/13/2022 01/13/2022 01/13/2022 4:30 PM [...] COVID: Suspected 06/06/2023 06/06/2023 06/06/2023 8:20 AM RECYCLABLE PRODUCTS SORTER COVID: Suspected 06/06/2023 06/06/2023 06/06/2023 5:51 PM RECYCLABLE PRODUCTS SORTER COVID19 06/06/2023 06/06/2023 06/16/2023 3:05 AM RECYCLABLE PRODUCTS SORTER COVID: Suspected 12/17/2023 12/17/2023 12/17/2023 12:47 PM CDT COVID: Suspected 09/15/2024 09/15/202409/15/2024 10:27 AM CDT COVID19 09/15/2024 09/15/2024 09/25/2024 3:07 AM CDT COVID: Recovered Comment:Added based on recent COVID infection. 09/25/2024 10/10/2024 documented as of this encounter Care Teams Insole Lip Turner Relationship Specialty Start Date End Date Dillon Lee MD PCP - General Family Medicine 05/10/18 02/05/19 Jurgen Davis MD [address] [place] [address] [address] [place] [address] PCP - Cardiology Interventional Cardiology 02/06/19 06/17/19 Dillon Lee MD PCP - General Family Medicine 02/24/19 06/17/19 Dillon Lee MD PCP - General Family Medicine 06/18/19 12/27/22 Valeriano Landa MD [address] [place] [address] [address] [place] [address] PCP - General Family Medicine 12/28/22 Tere Quispe RN CJR Outpatient Retail Gift Card Merchandising 07/25/18 10/30/18 Emily Ryan MA [address] [place] [address] ACO Care Direct Support Staff 08/06/18 08/14/18 Nohemi Ocampo LPN [address] [place] [address] [address] [place] [address] Quill Buncher And Sorter 08/16/18 09/25/18 Jurgen Davis MD [address] [place] [address] [address] [place] [address] Pouring Crane Operator Interventional Cardiology 02/25/19 06/17/19 Nohemi Ocampo LPN [address] [place] [address] Quill Buncher And Sorter 02/13/22 documented as of this encounter
--- OUTSIDE RECORDS SUMMARY | 2024-10-13 08:38 | XMS_ITS | Encounter Summary ---
Author Organization [facility] Facility Care Team Providers Care Tank Setter Helper Name Role Phone Dillon Lee MD Primary Care Provider +[phone] Tere Quispe RN Unavailable [phone] Emily Ryan MA Unavailable Nohemi Ocampo LPN Unavailable +[phone] Jurgen Davis MD Unavailable + [phone] Dillon Lee MD Primary Care Provider +[phone] Jurgen Davis MD Unavailable + [phone] Dillon Lee MD Primary Care Provider +[phone] Nohemi Ocampo LPN Unavailable +5810 Valeriano Landa MD Primary Care Provider [phone] Encounter Details Date Type Department Care Team (Latest Contact Info) Description 02/20/2017 Orders Only [facility] CLINCONV ProviderFelicity MD [address] [place] [address] Social History Tobacco Use Types Packs/Day Years Used Date Smoking Tobacco: Never Comments Unknown Sex and Gender Information Value Date Recorded Sex Assigned at Not on file Legal Sex Female 1:11 AM CORRECTIONAL MEDICINE PHYSICIAN Gender Identity Female 09/07/2022 5:09 AM CORRECTIONAL MEDICINE PHYSICIAN Sexual Orientation Straight 09/07/2022 5: 09 AM CORRECTIONAL MEDICINE PHYSICIAN documented as of this encounter Plan of Treatment Not on file documented as of this encounter Procedures Procedure Name Priority Date/Time Associated Diagnosis Comments SCAN - LABS 02/20/2017 12:00 AM CDT documented in this encounter Results * SCAN - LABS (02/20/2017 12:00 AM CDT) Narrative 02/20/2017 12:00 AM CDT Ordered by an unspecified provider. us Historical Provider Final Res ult documented in this encounter Visit Diagnoses Not on filedocumented in this encounter Additional Health Concerns Infection Onset Date Last Indicated Resolved Time COVID: Suspected 09/06/2021 09/06/2021 09/07/2021 3:05 AM CORRECTIONAL MEDICINE PHYSICIAN COVID: Suspected 09/06/2021 09/06/2021 09/07/2021 6:32 AM CORRECTIONAL MEDICINE PHYSICIAN COVID: Suspected 01/13/2022 01/13/2022 01/13/2022 4:30 PM [...] COVID: Suspected 06/06/2023 06/06/2023 06/06/2023 8:20 AM CORRECTIONAL MEDICINE PHYSICIAN COVID: Suspected 06/06/2023 06/06/2023 06/06/2023 5:51 PM CORRECTIONAL MEDICINE PHYSICIAN COVID19 06/06/2023 06/06/2023 06/16/2023 3:05 AM CORRECTIONAL MEDICINE PHYSICIAN COVID: Suspected 12/17/2023 12/17/2023 12/17/2023 12:47 PM CDT COVID: Suspected 09/15/2024 09/15/202409/15/2024 10:27 AM CDT COVID19 09/15/2024 09/15/2024 09/25/2024 3:07 AM CDT COVID: Recovered Comment:Added based on recent COVID infection. 09/25/2024 10/10/2024 documented as of this encounter Care Teams Tank Setter Helper Relationship Specialty Start Date End Date Dillon Lee MD PCP - General Family Medicine 05/10/18 02/05/19 Jurgen Davis MD [address] [place] [address] [address] [place] [address] PCP - Cardiology Interventional Cardiology 02/06/19 06/17/19 Dillon Lee MD PCP - General Family Medicine 02/24/19 06/17/19 Dillon Lee MD PCP - General Family Medicine 06/18/19 12/27/22 Valeriano Landa MD [address] [place] [address] [address] [place] [address] PCP - General Family Medicine 12/28/22 Tere Quispe RN CJR Outpatient Director Regulatory Affairs 07/25/18 10/30/18 Emily Ryan MA [address] [place] [address] ACO Care Meat Lugger 08/06/18 08/14/18 Nohemi Ocampo LPN [address] [place] [address] [address] [place] [address] Technology Solutions Architect 08/16/18 09/25/18 Jurgen Davis MD [address] [place] [address] [address] [place] [address] Hospital Account Manager Interventional Cardiology 02/25/19 06/17/19 Nohemi Ocampo LPN [address] [place] [address] Technology Solutions Architect 02/13/22 documented as of this encounter
--- OUTSIDE RECORDS SUMMARY | 2024-10-13 08:38 | XMS_ITS | Encounter Summary ---
Author Organization [facility] Care Team Providers Care White Metal Caster Name Role Phone Dillon Lee MD Primary Care Provider [phone] Tere Quispe RN Unavailable [phone] Emily Ryan MA Unavailable Nohemi Ocampo LPN Unavailable +[phone] Jurgen Davis MD Unavailable [phone] Dillon Lee MD Primary Care Provider [phone] Jurgen Davis MD Unavailable [phone] Dillon Lee MD Primary Care Provider [phone] Nohemi Ocampo LPN Unavailable [phone] Valeriano Landa MD Primary Care Provider [phone] Encounter Details Date Type Department Care Team (Latest Contact Info) Description 05/08/2018 Orders Only [facility]IN[facility] ProviderFelicity MD [address] [place] [id number] Social History Tobacco Use Types Packs/Day Years Used Date Smoking Tobacco: Never Comments Unknown Sex and Gender Information Value Date Recorded Sex Assigned at Not on file Legal Sex Female 1:11 AM BARREL PLANER Gender Identity Female 09/07/2022 5:09 AM BARREL PLANER Sexual Orientation Straight 09/07/2022 5: 09 AM BARREL PLANER documented as of this encounter Plan of Treatment Not on file documented as of this encounter Procedures Procedure Name Priority Date/Time Associated Diagnosis Comments SCAN - LABS 05/09/2018 12:00 AM BARREL PLANER SCAN - LABS 05/08/2018 12:00 AM BARREL PLANER documented in this encounter Results * SCAN - LABS (05/09/2018 12:00 AM BARREL PLANER) Narrative 05/09/2018 12:00 AM BARREL PLANER Ordered by an unspecified provider. us Historical Provider MD Final Res ult * SCAN - LABS (05/08/2018 12:00 AM BARREL PLANER) Narrative 05/08/2018 12:00 AM BARREL PLANER Ordered by an unspecified provider. us Historical Provider Final Res ult documented in this encounter Visit Diagnoses Not on filedocumented in this encounter Additional Health Concerns Infection Onset Date Last Indicated Resolved Time COVID: Suspected 09/06/2021 09/06/2021 09/07/2021 3:05 AM BARREL PLANER COVID: Suspected 09/06/2021 09/06/2021 09/07/2021 6:32 AM BARREL PLANER COVID: Suspected 01/13/2022 01/13/2022 01/13/2022 4:30 PM [...] COVID: Suspected 06/06/2023 06/06/2023 06/06/2023 8:20 AM BARREL PLANER COVID: Suspected 06/06/2023 06/06/202306/06/2023 5:51 PM BARREL PLANER COVID19 06/06/2023 06/06/2023 06/16/2023 3:05 AM BARREL PLANER COVID: Suspected 12/17/2023 12/17/2023 12/17/2023 12:47 PM CDT COVID: Suspected 09/15/2024 09/15/2024 09/15/2024 10:27 AM CDT COVID19 09/15/2024 09/15/2024 09/25/2024 3:07 AM CDT COVID: Recovered Comment:Added based on recent COVID infection. 09/25/2024 10/10/2024 documented as of this encounter Care Teams White Metal Caster Relationship Specialty Start Date End Date Dillon Lee MD PCP - General Family Medicine 05/10/18 02/05/19 Jurgen Davis MD [address] [place] [address] [address] [place] [address] PCP - Cardiology Interventional Cardiology 02/06/19 06/17/19 Dillon Lee MD PCP - General Family Medicine 02/24/19 06/17/19 Dillon Lee MD PCP - General Family Medicine 06/18/19 12/27/22 Valeriano Landa MD [address] [place] [address] [address] [place] [address] PCP - General Family Medicine 12/28/22 Tere Quispe, RN CJR Outpatient Valve Seater Operator 07/25/18 10/30/18 Emily Ryan MA [address] [place] [address] ACO Care Research Nurse Practitioner 08/06/18 08/14/18 Nohemi Ocampo LPN [address] [place] [address] Accounts Receivable Specialist 08/16/18 09/25/18 Jurgen Davis MD [address] [place] [address] Program Development Specialist Interventional Cardiology 02/25/19 06/17/19 Nohemi Ocampo LPN [address] [place] [address] Accounts Receivable Specialist 02/13/22 documented as of this encounter
--- OUTSIDE RECORDS SUMMARY | 2024-10-13 08:38 | XMS_ITS | Referral Summary ---
Author Organization [facility] Address [address] [place] [address] Care Team Providers Care Industrial Safety And Health Specialist Name Role Phone DamarisNohemi LPN Unavailable [phone] Valeriano Landa MD Primary Care Provider [phone] Encounters Date Type Department Care Team Description 10/10/2024 3:00 PM CDT Office Visit [facility] at [address] [place] [address] Lynette Florez MD Coronary artery disease of [place] artery of [place] heart with stable angina pectoris (Primary Dx); Hyperlipidemia LDL goal <70; Nonrheumatic tricuspid valve regurgitation; Essential (primary) hypertension 09/15/2024 10:30 AM CDT Office Visit [facility] at [address] [address] Dom Cardenas NP Cough, unspecified type (Primary Dx); Acute cough 08/29/2024 Telephone [facility] [address] [facility] [address] [place] [address] Lynette Florez MD defective repatha pen 08/19/2024 Results Follow-Up [facility] [address] [facility] [address] [place] [address] Lynette Florez MD 08/19/2024 Telephone [facility] [address] [facility] [address] [place] [address] Lynette Florez MD medication replacement; Test Results 08/14/2024 12:30 PM NEUROLOGICAL SURGERY TEACHER Ancillary Procedure [facility] at [address] [place] [address] Essential (primary) hypertension; Nonrheumatic tricuspid valve regurgitation; MATOS (dyspnea on exertion) 08/11/2024 7:45 AM NEUROLOGICAL SURGERY TEACHER Ancillary Procedure [facility] [address] [facility] [address] [place] [address] Coronary artery disease of [place] artery of [place] heart with stable angina pectoris; Chest heaviness 08/05/2024 Orders Only [facility] [address] [place] [address] [address] [place] [phone] ProviderFelicity MD 08/05/2024 9:15 AM NEUROLOGICAL SURGERY TEACHER Office Visit [facility] at [address] [place] [address] Lynette Florez MD Coronary artery disease of [place] artery of [place] heart with stable angina pectoris (Primary Dx); Essential (primary) hypertension; Hyperlipidemia LDL goal <70; Nonrheumatic tricuspid valve regurgitation; STEPHENIE (obstructive sleep apnea); MATOS (dyspnea on exertion); Chest heaviness from Last 3 Months Allergies Active Allergy Reactions Criticality Noted Date Comments Sulfamethoxazole-Trimet hoprim Hives Medium 07/24/2019 Codeine Nausea only,Stomach upset Low 04/17/2017 Stomach/GI Upset Codeine Sulfate Stomach upset Low 09/18/2018 Diphenhydramine Hcl Agitation Low Ibuprofen Nausea only,Stomach upset Low 04/17/2017 Stomach/GI Upset Levofloxacin Nausea only Low 04/17/2017 Other reaction(s): rash, gi upset rash, gi upset Lisinopril Cough Low 04/17/2017 cough Lorazepam Nausea & Vomiting Low Losartan Other (See comments) Low 05/22/2023 Tunnel vision and dizziness Meperidine Other (See comments) Low Reaction: Other Metronidazole Stomach upset Low 09/18/2018 Morphine Hallucinations Medium Hallucinations with large amounts Niacin Redness Low 04/17/2017 un Other reaction(s): red rash all over red rash all over Oxycodone High Reaction: Hives, Penicillin G Potassium Rash Medium 09/18/2018 Penicillins Nausea only,Rash Medium 04/17/2017 Rash Phenergan Plain Agitation Low Promethazine Other (See comments) Low 04/17/2017 Pt. Don't remember the reaction Other reaction(s): hyperactivity hyperactivity Rabeprazole Headache Low 04/17/2017 Headache Zoledronic Habf-Pzkzynmk-Ggyxq Stomach upset Low 09/18/2018 Tramadol Agitation Low 04/17/2017 Other reaction(s): hyperactivity hyperactivity Zoledronic Acid Stomach upset Low 04/17/2017 Stomach/GI Upset Medications aspirin 81 mg tablet Take 1 tablet (81 mg total) by mouth every morning Active magnesium oxide 500 mg capsule Take 1 tablet by mouth every morning. Active albuterol sulfate (PROAIR HFA INHAL) Inhale 2 puffs every 4 (four) hours as needed Active blood-glucose meter kit 11/16/19 17 Active ipratropium-al buterol (DUO-NEB) 0.5-2.5 mg/3 mL nebulizer solution 3 mL every 6 (six) hours 07/16/19 18 Active nebulizers misc 07/16/19 18 Active omega-3 fatty acids-fish oil 300-1,000 mg capsule Take 2 capsules (2 g total) by mouth daily Active nitroglycerin (NITROSTAT) 0.4 mg SL tabletIndicati ons:Do not exceed 3 tablets in a [address] 1 tablet (0.4 mg total) under the tongue every 5 (five) minutes as needed for chest pain 25 tablet 6 06/26/20 19 Active cholecalcifero l (VITAMIN D-3) 5,000 unit capsule Take 50 Units by mouth daily Active Estrace 0.01 % (0.1 mg/gram) vaginal cream 07/21/19 22 Active ALPRAZolam (XANAX) 0.5 mg tabletIndicati ons:Primary insomnia TAKE 1 TABLET NIGHTLY NEEDED FOR ANXIETY 90 tablet 1 11/22/19 22 Active FreeStyle Lite Strips strip USE 1 STRIP DIRECTED TO TEST BLOOD SUGAR TWICE A DAY 200 strip 3 11/22/19 22 Active albuterol HFA (PROVENTIL HFA,VENTOLIN HFA,PROAIR HFA) 90 mcg/actuation inhalerIndicat ions:Pulmonary nodules/lesion s, multiple Inhale 2 puffs every 6 (six) hours as needed for wheezing or shortness of breath OK TO SUBSTITUTE IF ALTERNATIVE CHEAPER 1 each 01/06/20 025 Active diclofenac sodium (VOLTAREN) 1 % gel 03/28/20 23 Active Repatha SureClick 140 mg/mL pen injector INJECT 1 ML (140 MG TOTAL) UNDER THE SKIN EVERY 14 DAYS 6 mL 02/26/20 24 Active potassium chloride ER 10 mEq CR tablet TAKE 1 TABLET DAILY 90 tablet 3 02/26/20 24 Active furosemide (LASIX) 20 mg tablet TAKE 1 TABLET DAILY 90 tablet 3 05/08/20 24 Active escitalopram (LEXAPRO) 10 mg tablet Take 1 tablet (10 mg total) by mouth daily 06/26/20 24 Active Jardiance 10 mg tablet Take 1 tablet (10 mg total) by mouth daily 07/28/19 25 Active clopidogreL (PLAVIX) 75 mg tablet TAKE 1 TABLET DAILY 90 tablet 3 08/25/19 25 Active bisoprolol (ZEBETA) 5 mg tablet TAKE 1 TABLET DAILY 90 tablet 3 08/25/19 25 Active ezetimibe (ZETIA) 10 mg tablet TAKE 1 TABLET DAILY 90 tablet 10/07/19 25 Active isosorbide mononitrate ER (IMDUR) 60 mg 24 hr tabletIndicati ons:Coronary artery disease of [place] artery of [place] heart with stable angina pectoris Take 1 tablet (60 mg total) by mouth daily 90 tablet 3 10/11/19 026 Active azithromycin (ZITHROMAX) 250 mg tablet TAKE 2 TABLETS BY MOUTH FOR 1 DAY THEN TAKE 1 TABLET BY MOUTH DAILY FOR 4 DAYS 05/30/20 23 025 Discontinued(T herapy completed) pantoprazole DR (PROTONIX) 40 mg EC tablet Take 1 tablet (40 mg total) by mouth nightly at bedtime. 04/26/20 23 025 Discontinued(T herapy completed) predniSONE (DELTASONE) 5 mg tablet Take 1 tablet (5 mg) by mouth daily 12/16/19 24 025 Discontinued(T herapy completed) isosorbide mononitrate ER (IMDUR) 30 mg 24 hr tabletIndicati ons:Coronary artery disease of [place] artery of [place] heart with stable angina pectoris TAKE 1 TABLET DAILY 90 tablet 3 06/02/20 24 025 Discontinued(T herapy completed) ezetimibe (ZETIA) 10 mg tablet TAKE 1 TABLET DAILY 90 tablet 07/01/20 24 025 Discontinued Active Problems Problem Noted Date Diagnosed Date [...] (05/30/2018): Added automatically from request for surgery [id number] Assessment & Plan (11/13/2019 3:50 PM CDT): [...] localized osteoarthrosis of shoulder reg ion 10/19/2010 Resolved Problems Problem Noted Date Diagnosed Date Resolved Date Hip pain, bilateral 03/24/2019 02/12/20 GERD (gastroesophageal reflux disease) 07/06/2016 02/11/2022 CAD (coronary artery disease) 04/18/2016 02/11/2022 Angina pectoris 04/04/2016 02/11/2022 Immunizations Immunization Administration Dates Next Due Influenza, Quadrivalent, Hig h Dose, Preservative Free, Intrr 04/15/2021,05/01/2020 Influenza, Trivalent, High D ose, Split, Preservative Free, Intramuscular 06/26/2019 Social History Tobacco Use Types Packs/Day Years Used Date Smoking Tobacco: Never Smokeless Tobacco: Never Tobacco Cessation:Counseling Given: Not Answered Alcohol Use Standard Drinks/Week Comments No 0 [...] and Family Once a week 02/06/2019 Attends [employer] More than 4 times per year [...] staff should administer the PHQ-9) 1 04/15/2021 [facility] [place] [facility] Occupat ional [facility] - Occupational Stress [...] on file Legal Sex Female 1:11 AM NEUROLOGICAL SURGERY TEACHER Gender Identity Female 09/07/2022 5:09 AM NEUROLOGICAL SURGERY TEACHER Sexual Orientation Straight 09/07/2022 5: 09 AM NEUROLOGICAL SURGERY TEACHER 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, 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 Not on file Not on file N ot on file Last Filed Vital Signs Vital Sign Reading Time Taken Comments Blood Pressure 132/78 10/10/2024 2:47 PM CDT Pulse 57 10/10/2024 2:47 PM CDT Temperature 36.4 C (97.6 F) 09/15/2024 10:15 AM CDT Respiratory Rate 24 09/15/2024 10:15 AM CDT Oxygen Saturation 95% 10/10/2024 2:47 PM CDT Inhaled Oxygen Concentration - - Weight 73.5 kg (162 lb) 10/10/2024 2:47 PM CDT Height 166.4 cm (5' 5.5 ) 10/10/2024 2:47 PM CDT Body Mass Index 26.55 10/10/2024 2:47 PM CDT Plan of Treatment Not on file Medical Devices Implanted Type Area Youth Specialist Device Identifier Shelf Expiration Date Model / Serial / Lot Heart Stent N/A: Heart [employer] [id number] Evolution Mp 10mm Cruciate Retaining Knee Left 4 Standard Insert - [id number] Implanted:Qty: 1 on 07/31/2018 by Davey Lake MD at [facility] Left: Knee [employer] 11/09/2024 [id number] / / [id number] Tibal Base 4 Left Implanted:Qty: 1 on 07/31/2018 by Davey Lake MD at [facility] Left: Knee [employer] 06/11/2026 [id number] / / [id number] Femoral Component 5 Left Cementless Implanted:Qty: 1 on 07/31/2018 by Davey Lake MD at [facility] Left: Knee [employer] 04/12/2026 [id number] / / [id number] Pressfit Keel Primary 15mm Implanted:Qty: 1 on 07/31/2018 by Davey Lake MD at [facility] Left: Knee [employer] 05/29/2026 [id number] / / Explanted Type Area Youth Specialist Device Identifier Shelf Expiration Date Model / Serial / Lot Other - See Comments Other - see comments N/A: Lumbar-Sa cral Spine Description:2 Steel rods, an d 4 screws Procedures Procedure Name Priority Date/Time Associated Diagnosis Comments POCT RAPID STREP Routine 09/15/2024 10:28 AM CDT Cough, unspecified type POC INFLUENZA A/B, COVID-19 ANTIGEN Routine 09/15/2024 10:27 AM CDT Cough, unspecified type Acute cough TRANSTHORACIC ECHO (TTE) COMPLETE W DOPPLER/CF WO CONTRAST Routine 08/14/2024 12:55 PM NEUROLOGICAL SURGERY TEACHER Essential (primary) hypertension Nonrheumatic tricuspid valve regurgitation MATOS (dyspnea on exertion) NM MPI SPECT (REST AND/OR STRESS) MULTIPLE STUDIES Schedule Routine, Read Routine (OP Routine) 08/11/2024 9:25 AM NEUROLOGICAL SURGERY TEACHER Coronary artery disease of [place] artery of [place] heart with stable angina pectoris Chest heaviness LIPID PANEL Routine 07/01/2024 8:17 AM NEUROLOGICAL SURGERY TEACHER EGFR Routine 02/11/2022 4:30 AM CDT HEMOGLOBIN A1C Routine 02/11/2022 4:30 AM CDT HEPATITIS C ANTIBODY Routine 08/30/2021 8:35 AM NEUROLOGICAL SURGERY TEACHER Need for hepatitis C screening test ALBUMIN CREATININE RATIO, URINE Routine 08/30/2021 8:35 AM NEUROLOGICAL SURGERY TEACHER Type 2 diabetes mellitus without complication, without long-term current use of insulin (HCC) DEXA AXIAL SKELETON BONE DENSITY 1 OR MORE SITES Schedule Routine, Read Routine (OP Routine) 08/30/2021 8:13 AM NEUROLOGICAL SURGERY TEACHER Menopausal and perimenopausal disorder DIAGNOSTIC MAMMOGRAM Schedule Routine, Read Routine (OP Routine) 07/21/2021 COLONOSCOPY Routine 07/15/2020 from Last 3 Months or Most Recently Relevant to Health Maintenance Results * POCT rapid strep A (09/15/2024 10:28 AM CDT) Rapid Strep A, POC Negative Negative Swab 09/15/2024 10:2 8 AM CDT Dom Cardenas NP POINT OF CARE TEST ORDERABLES F inal Result * (ABNORMAL) POC Influenza A/B, COVID-19 antigen (09/15/2024 10:27 AM CDT) Influenza A Ag, POC Negative Negative [facility] [place] [facility] Influenza B Ag, POC Negative Negative [facility] [place] COVID-19 Ag POC Positive(A) Presumptive Negative, Invalid [facility] Nasal 09/15/2024 10:2 7 AM CDT us Dom Cardenas NP POINT OF CARE TEST ORDERABLES F inal Result [id number] [address] * TRANSTHORACIC ECHO (TTE) COMPLETE W DOPPLER/CF WO CONTRAST (08/14/2024 12:55 PM NEUROLOGICAL SURGERY TEACHER) LV EF 70 % CONS SCIMAGE Anatomical Region Laterality Modality Ultrasound 08/14/2024 12:1 6 PM NEUROLOGICAL SURGERY TEACHER Narrative 08/14/2024 6:01 PM NEUROLOGICAL SURGERY TEACHER [facility] [address] [place] [address], [address], [place] [address] P:[phone] P:[phone] Echocardiographic Report Patient Name: DEE BENOIT A : 1945 Study Date: 08/14/2024 12:16:01 PM Gender: F Tech: Location: [facility] Ref Provider: LYNETTE FLOREZ Height(Cm): 165 BSA: 1.86 Weight(Kg): 75.3 Heart Rate: 55 BP: 120 / 74 Quality: Good Order Provider: LYNETTE FLOREZ PROCEDURES: Echocardiographic Report: Transthoracic echocardiogram with complete 2D, M-Mode, and color Doppler examination. With Strain Analysis. INDICATIONS: Dyspnea on Exertion, I10 Essential (primary) hypertension, and I36.1 Nonrheumatic tricuspid (valve) insufficiency. MEASUREMENTS: 2D/MM Value Range Doppler Value Range EF Mod BP 68 % [ 54 - 74 ] FILI Vmax 2.52 cm2 [ 2.00 - 4.00 ] EF Teich MM 69 % [ 54 - 74 ] AV Mean PG 4 mmHg Estimated EF 70 % AV Peak Arnie 1.37 m/s [ 1.00 - 1.70 ] LVIDd 2D 4.72 cm [ 3.80 - 5.20 ] AV Peak PG 8 mmHg LVIDd MM 4.01 cm [ 3.80 - 5.20 ] AV VTI 32.44 cm LVIDs 2D 2.74 cm [ 2.20 - 3.50 ] LVOT Diam 1.96 cm [ 1.70 - 2.10 ] LVIDs MM 2.48 cm [ 2.20 - 3.50 ] LVOT Peak Arnie 1.14 m/s [ 0.70 - 1.10 ] LVPWd 2D 0.79 cm [ 0.60 - 0.90 ] LVOT VTI 26.05 cm LVPWd MM 0.98 cm [ 0.60 - 0.90 ] MV E Peak Arnie 0.85 m/s [ 0.60 - 1.30 ] IVSd 2D 1.09 cm [ 0.60 - 0.90 ] MV A Peak Arnie 0.93 m/s [ 1.00 - 1.20 ] IVSd MM 1.10 cm [ 0.60 - 0.90 ] MV Decel Time 229 msec [ 104 - 258 ] LA Dimension MM 2.73 cm [ 2.70 - 3.80 ] PV Peak Arnie 0.92 m/s [ 0.40 - 0.80 ] AoR Diam MM 3.95 cm [ 2.70 - 3.70 ] TR Peak Arnie 2.10 m/s [ 1.00 - 2.80 ] LA Volume Index 25 cc/m2 [ 16 - 34 ] TR Peak PG 18 mmHg RVSP 25.00 mmHg [ 10.00 - 36.00 ] Lateral E` 0.09 m/s [ 0.10 - 0.15 ] E/E` 9 2D/MM Value Range Doppler Value Range - FINDINGS: Interpretation Site: Exam was interpreted at [facility]. Left Ventricle: Normal left ventricular size. Normal global left ventricular systolic function. Impaired diastolic relaxation Grade I. Ejection fraction is measured at 68 %. Ejection Fraction is visually estimated to be 70 %. Global Longitudinal Strain is -17 %. Right Ventricle: Normal right ventricular size. Left Atrium: There is mild enlargement of left atrium. Right Atrium: The right atrium is normal in size. Atrial Septum: Normal atrial septum. Mitral Valve: Normal appearance of the mitral valve. Mild mitral annular calcification. Trivial regurgitation of the mitral valve. Aortic Valve: Aortic cusps appear mildly sclerotic. Tricuspid Valve: Normal appearance of the tricuspid valve. Estimated peak RVSP is 25 mmHg. Mild tricuspid regurgitation. Pulmonic Valve: Normal appearance of the pulmonic valve. Trivial regurgitation in the pulmonic valve. Pericardium: Normal pericardium with no significant pericardial effusion. Aorta: Normal aortic root. IVC: Normal size and normal respiratory collapse consistent with normal right atrial pressure (<5 mmHg). Pulmonary Artery: Normal pulmonary artery size. CONCLUSIONS: Normal left ventricular size. Normal global left ventricular systolic function. Impaired diastolic relaxation Grade I. Ejection fraction is measured at 68 %. Ejection Fraction is visually estimated to be 70 %. Global Longitudinal Strain is -17 %. There is mild enlargement of left atrium. Normal appearance of the mitral valve. Mild mitral annular calcification. Trivial regurgitation of the mitral valve. Aortic cusps appear mildly sclerotic. Electronically Signed By: Valeriano Burton MD, [facility] 08/14/2024 6:00:50 PM NEUROLOGICAL SURGERY TEACHER Procedure Note Valeriano Burton MD - 08/14/2024 [facility]iology [address] [facility], [address], [place] [address] P:[phone] P:[phone] Echocardiographic Report Patient Name: DEE BENOIT A : 1945 Study Date: 08/14/2024 12:16:01 PM Gender: F Tech: Location: ED[facility] Ref Provider: LYNETTE FLOREZ Height(Cm): 165 BSA: 1.86 Weight(Kg): 75.3 Heart Rate: 55 BP: 120 / 74 Quality: Good Order Provider: LYNETTE FLOREZ PROCEDURES: Echocardiographic Report: Transthoracic echocardiogram with complete 2D, M-Mode, and color Dopplerexamination. With Strain Analysis. INDICATIONS: Dyspnea on Exertion, I10 Essential (primary) hypertension, and I36.1Nonrheumatic tricuspid (valve) insufficiency. MEASUREMENTS: 2D/MM Value Range Doppler ValueRange EF Mod BP 68 % [ 54 - 74 ] FILI Vmax 2.52cm2 [ 2.00 - 4.00 ] EF Teich MM 69 % [ 54 - 74 ] AV Mean PG 4mmHg Estimated EF 70 % AV Peak Arnie 1.37m/s [ 1.00 - 1.70 ] LVIDd 2D 4.72 cm [ 3.80 - 5.20 ] AV Peak PG 8mmHg LVIDd MM 4.01 cm [ 3.80 - 5.20 ] AV VTI 32.44cm LVIDs 2D 2.74 cm [ 2.20 - 3.50 ] LVOT Diam 1.96 cm[ 1.70 - 2.10 ] LVIDs MM 2.48 cm [ 2.20 - 3.50 ] LVOT Peak Arnie 1.14m/s [ 0.70 - 1.10 ] LVPWd 2D 0.79 cm [ 0.60 - 0.90 ] LVOT VTI 26.05cm LVPWd MM 0.98 cm [ 0.60 - 0.90 ] MV E Peak Arnie 0.85m/s [ 0.60 - 1.30 ] IVSd 2D 1.09 cm [ 0.60 - 0.90 ] MV A Peak Arnie 0.93m/s [ 1.00 - 1.20 ] IVSd MM 1.10 cm [ 0.60 - 0.90 ] MV Decel Time 229msec [ 104 - 258 ] LA Dimension MM 2.73 cm [ 2.70 - 3.80 ] PV Peak Arnie 0.92m/s [ 0.40 - 0.80 ] AoR Diam MM 3.95 cm [ 2.70 - 3.70 ] TR Peak Arnie 2.10m/s [ 1.00 - 2.80 ] LA Volume Index 25 cc/m2 [ 16 - 34 ] TR Peak PG 18mmHg RVSP 25.00 mmHg [ 10.00 - 36.00 ] Lateral E` 0.09 m/s [ 0.10 - 0.15 ] E/E` 9 2D/MM Value Range Doppler ValueRange - FINDINGS: Interpretation Site: Exam was interpreted at [facility]. Left Ventricle: Normal left ventricular size. Normal global left ventricular systolicfunction. Impaired diastolic relaxation Grade I. Ejection fraction is measured at 68 %.Ejection Fraction is visually estimated to be 70 %. Global Longitudinal Strain is -17 %. Right Ventricle: Normal right ventricular size. Left Atrium: There is mild enlargement of left atrium. Right Atrium: The right atrium is normal in size. Atrial Septum: Normal atrial septum. Mitral Valve: Normal appearance of the mitral valve. Mild mitral annular calcification.Trivial regurgitation of the mitral valve. Aortic Valve: Aortic cusps appear mildly sclerotic. Tricuspid Valve: Normal appearance of the tricuspid valve. Estimated peak RVSP is 25 mmHg.Mild tricuspid regurgitation. Pulmonic Valve: Normal appearance of the pulmonic valve. Trivial regurgitation in thepulmonic valve. Pericardium: Normal pericardium with no significant pericardial effusion. Aorta: Normal aortic root. IVC: Normal size and normal respiratory collapse consistent with normal rightatrial pressure (<5 mmHg). Pulmonary Artery: Normal pulmonary artery size. CONCLUSIONS: Normal left ventricular size. Normal global left ventricular systolicfunction. Impaired diastolic relaxation Grade I. Ejection fraction is measured at 68 %.Ejection Fraction is visually estimated to be 70 %. Global Longitudinal Strain is -17 %. There is mild enlargement of left atrium. Normal appearance of the mitral valve. Mild mitral annular calcification.Trivial regurgitation of the mitral valve. Aortic cusps appear mildly sclerotic. Electronically Signed By: Valeriano Burton MD, [facility] 08/14/2024 6:00:50 PM NEUROLOGICAL SURGERY TEACHER Lynette Florez MD CV ECHO PROCEDURES Final Result * NM MPI SPECT (Rest and/or Stress) Multiple Studies (08/11/2024 9:25 AM NEUROLOGICAL SURGERY TEACHER) Anatomical Region Laterality Modality Body N/A Nuclear Medicine 08/11/2024 8:23 AM NEUROLOGICAL SURGERY TEACHER Narrative 08/12/2024 11:07 AM NEUROLOGICAL SURGERY TEACHER [facility] Medical [facility] Cardiology [address], [place] [address] [address] [facility] [address], [place] [address] P:[phone] P:[phone] MPI Imaging Report Patient Name: DEE BENOIT A : 1945 Study Date: 08/11/2024 8:23:14 AM Gender: F Tech: [facility] Location: [facility] Provider: LYNETTE FLOREZ Height(Cm): 166.4 BSA: Weight(Kg): 75.3 BMI: 27.19 Order Provider: LYNETTE FLOREZ PHYSICIAN: Referring Physician: Dr. Landa. HCG Physician: Jose E Florez M.D. Interpreting Physician: Daly Hollingsworth D.O. Stress Supervision: Navarro Hatfield M.D., F.A.C.C. PROCEDURES: Pharmacologic SPECT Report: Myocardial perfusion imaging with Tc99M Sestamibi SPECT at rest and stress post regadenoson (Lexiscan) infusion. Treadmill stress converted to ambulatory Lexiscan stress at 7:33 due to SOB, Leg Fatigue, and uable to reach target heart rate. INDICATIONS: Hypertension, Shortness Of Breath, Diabetes, Family Hx CAD, High Cholesterol, I25.118 Atherosclerotic heart disease of [place] coronary artery with other forms of angina pectoris, and R07.89 Other chest pain. FINDINGS: Procedural Findings: One day rest/stress was used. Tc99m Sestamibi injected IV at rest was 10.6 millicuries 32.9 millicuries of Tc99M Sestamibi injected IV during Lexiscan stress Lexiscan 0.4mg given IV over 10 seconds with low level exercise: 1.2 MPH Pharmacologic stress related symptoms and/or side effects during infusion include chest pressure 2/10 and shortness of breath. Symptoms were resolved with rest and completion of Lexiscan protocol. Baseline heart rate was 55 BPM Maximum Heart Rate Achieved was: 115 BPM Baseline blood pressure was 130/68 mmHg Post Stress Blood Pressure was 132/68 mmHg Termination: Protocol complete. Resting ECG: Normal sinus rhythm. Post ECG: Findings do not meet strict criteria for ischemia. Arrhythmia: No arrhythmias seen. Perfusion Findings: Normal perfusion imaging. Prone imaging was not performed. Left ventricle cavity size at rest is normal. Left ventricle cavity size with stress is unchanged. A TID of 0.90 was automatically calculated. LV Function: Global left ventricular function is normal. Left ventricular ejection fraction is 73 %. CONCLUSIONS: Negative EKG portion of stress test. Myocardial perfusion imaging is normal. Global left ventricular function is normal. Left ventricular ejection fraction is 73 %. Electronically Signed By: Dr. Navarro Hatfield FACC 08/11/2024 2:07:20 PM NEUROLOGICAL SURGERY TEACHER Electronically Signed By: Daly Hollingsworth DO, FACC, CAROL GARCIA 08/12/2024 11:04:39 AM NEUROLOGICAL SURGERY TEACHER Procedure Note Daly Hollingsworth DO - 08/12/2024 [facility] Medical Group Cardiology [address] [facility] [address], [place] [address] [address] [facility] [address], [place], [place] [address] P:[phone] P:[phone] MPI Imaging Report Patient Name: DEE BENOIT A : 1945 Study Date: 08/11/2024 8:23:14 AM Gender: F Tech: [facility] Location: [facility] Provider: LYNETTE FLOREZ Height(Cm): 166.4 BSA: Weight(Kg): 75.3 BMI: 27.19 Order Provider: LYNETTE FLOREZ PHYSICIAN: Referring Physician: Dr. Landa. HCG Physician: Jose E Florez M.D. Interpreting Physician: Daly Hollingsworht D.O. Stress Supervision: Navarro Hatfield M.D., F.A.C.C. PROCEDURES: Pharmacologic SPECT Report: Myocardial perfusion imaging with Tc99M Sestamibi SPECT at rest and stresspost regadenoson (Lexiscan) infusion. Treadmill stress converted to ambulatoryLexiscan stress at 7:33 due to SOB, Leg Fatigue, and uable to reach target heart rate. INDICATIONS: Hypertension, Shortness Of Breath, Diabetes, Family Hx CAD, HighCholesterol, I25.118 Atherosclerotic heart disease of [place] coronary artery with other formsof angina pectoris, and R07.89 Other chest pain. FINDINGS: Procedural Findings: One day rest/stress was used. Tc99m Sestamibi injected IV at rest was 10.6 millicuries 32.9 millicuries of Tc99M Sestamibi injected IV during Lexiscan stress Lexiscan 0.4mg given IV over 10 seconds with low level exercise: 1.2MPH Pharmacologic stress related symptoms and/or side effects duringinfusion include chest pressure 2/10 and shortness of breath. Symptoms were resolved with rest and completion of Lexiscan protocol. Baseline heart rate was 55 BPM Maximum Heart Rate Achieved was: 115 BPM Baseline blood pressure was 130/68 mmHg Post Stress Blood Pressure was 132/68 mmHg Termination: Protocol complete. Resting ECG: Normal sinus rhythm. Post ECG: Findings do not meet strict criteria for ischemia. Arrhythmia: No arrhythmias seen. Perfusion Findings: Normal perfusion imaging. Prone imaging was not performed. Left ventriclecavity size at rest is normal. Left ventricle cavity size with stress is unchanged. A TIDof 0.90 was automatically calculated. LV Function: Global left ventricular function is normal. Left ventricular ejectionfraction is 73 %. CONCLUSIONS: Negative EKG portion of stress test. Myocardial perfusion imaging is normal. Global left ventricular function is normal. Left ventricular ejectionfraction is 73 %. Electronically Signed By: Dr. Navarro Hatfield [facility] 08/11/2024 2:07:20 PM NEUROLOGICAL SURGERY TEACHER Electronically Signed By: Daly Hollingsworth, , NIKOLAI, RADHA, CAROL 08/12/2024 11:04:39 AM NEUROLOGICAL SURGERY TEACHER Lynette Florez MD IMG NM PROCEDURES Final R esult * (ABNORMAL) Lipid panel (07/01/2024 8:17 AM NEUROLOGICAL SURGERY TEACHER) SCRIBED Cholesterol, Total 110 0 - 200 EXTERNAL LAB SCRIBED HDL 41 40 - 100 EXTERNAL LAB SCRIBED LDL 34 0 - 100 EXTERNAL LAB SCRIBED Triglycerides 173(A) 0 - 150 EXTERNAL LAB Blood Historical Provider LAB BLOOD ORDERABLES Edit ed Result - Final EXTERNAL LAB * eGFR (02/11/2022 4:30 AM CDT) eGFR 76 mL/min/1. 73 m2 [facility] Comment: Interpretive Data Reference Interval Normal >/= 90 mL/min/1.73m2 Mildly decreased* 60 - 89 mL/min/1.73m2 Mildly to moderately decreased 45 - 59 mL/min/1.73m2 Moderately to severely decreased 30 - 44 mL/min/1.73m2 Severely decreased 15 - 29 mL/min/1.73m2 Kidney Failure < 15 mL/min/1.73m2 *Relative to young adult level Estimated glomerular filtration rate is determined by the 2020 CKD-EPI equation recommended by the National Kidney Foundation (A Unifying Approach to GFR Estimation: Recommendations of the NKF-ASK Task Force on Reassessing the Inclusion of Race in Diagnosing Kidney Disease, JASN 2020). The CKD-EPI equation should not be used for patients with unstable renal function and has not been validated in children and those over 70. Current interpretive data was last reviewed 2021. Blood 02/11/2022 4:3 0 AM CDT 02/11/2022 4:32 AM CDT us Giorgio Leonardo MD LAB BLOOD ORDERABLES Final Result Performing Organization Address [facility] de Phone Number [address] [address] * (ABNORMAL) Hemoglobin A1c (02/11/2022 4:30 AM CDT) Pathologist [facility] Hgb A1C 6.3(H) 4.0 - 5.6 % TWAN Estimated Average Glucose 134 mg/dL [facility] Comment: The ADA recommends reporting an estimated Average Glucose (eAG) with all Hemoglobin A1c results using the equation derived from a study of 507 normal and diabetic adults. Minority populations were underrepresented and children were not included. (Diabetes Care 31:8251-9818, 2008). The eAG is not equivalent to a fasting glucose. Blood 02/11/2022 4:30 AM CDT 02/11/2022 4:32 AM CDT us Giorgio Leonardo MD LAB BLOOD ORDERABLES Final Result Performing Organization Address [facility] de Phone Number [address] [address] * Hepatitis C antibody (08/30/2021 8:35 AM NEUROLOGICAL SURGERY TEACHER) [facility] Hep C Ab Nonreactive Nonreactive [facility] Comment: Interpretive Data Nonreactive: Antibodies to HCV not detected. Does NOT exclude the possibility of recent exposure to HCV. Equivocal: Equivocal for HCV antibodies. Supplemental molecular testing will be automatically performed to determine infection status in accordance with current CDC screening recommendations. Reactive: Positive for HCV antibodies. This may represent current or past HCV infection. Supplemental molecular testing will be automatically performed to determine current infection status in accordance with current CDC screening recommendations. Interpretive data was last revised on 2019. Blood 08/30/2021 8:35 AM NEUROLOGICAL SURGERY TEACHER 08/30/2021 10:39 AM NEUROLOGICAL SURGERY TEACHER us Dillon Lee MD LAB MICROBIOLOGY - GENERAL LOGAN MIRZA Final Result Performing Organization Address [facility] de Phone Number [address] [place] [address] * Albumin Creatinine Ratio, Urine (08/30/2021 8:35 AM NEUROLOGICAL SURGERY TEACHER) Albumin Ur <12.0 mg/L [facility] Comment: Interpretive Data No reference range established. Current interpretive data was last revised 2018. Testing performed by: [facility], [address] [place] [address]., [id number] Creatinine Ur 347.0 mg/dL [facility] Comment: Interpretive Data No reference range established. Current interpretive data was last revised 2018. Testing performed by: [facility], [address] [place] [address]., [id number] Albumin Creatinine Ratio, Ur <3 1 - 29 mg/g [facility] Comment:Testing performed by : [address] [id number] Urine 08/30/2021 8:35 AM NEUROLOGICAL SURGERY TEACHER 08/30/2021 9:59 AM NEUROLOGICAL SURGERY TEACHER Dillon Lee MD LAB URINE ORDERABLES Final Resu lt [facility] [address] [facility] [place] [address] * Dexa Axial Skeleton Bone Density 1 Or 2 Site (08/30/2021 8:13 AM NEUROLOGICAL SURGERY TEACHER) Anatomical Region Laterality Modality Body N/A Mammography 08/30/2021 8:29 AM NEUROLOGICAL SURGERY TEACHER Narrative 08/30/2021 8:30 AM NEUROLOGICAL SURGERY TEACHER EXAM DESCRIPTION: DEXA AXIAL SKELETON BONE DENSITY 1 OR MORE SITES REASON FOR STUDY: Post-menopausal female, screening for osteoporosis. Youth Specialist/Model: [employer] A (S/N [id number]) CLINICAL INFORMATION: Current height: 65 inches Maximum height: 66 inches Weight: 160 pounds Risk factors: None COMPARISON: None available. FINDINGS: AP LUMBAR SPINE L1-L3: Total BMD is 0.813 g/cm2 T-score is -1.9 LEFT HIP: Total BMD is 0.785 g/cm2 T-score is -1.3 Femoral neck BMD is 0.518 g/cm2 T-score is -3.0 IMPRESSION: Osteoporosis by WHO criteria. REFERENCE: Bone mineral density: Normal (T-score above or = -1.0) Low bone mass (T-score between -1.0 and -2.5) replaces the previously used term osteopenia Osteoporosis (T-score = or below -2.5) Medical evaluation for secondary causes of low bone mineral density may be appropriate. FRAX is a World Health Organization validated fracture risk assessment tool that calculates a person's 10 year probability of a major osteoporosis related fracture and hip fracture. According to the National Osteoporosis Foundation guidelines, postmenopausal women and men age 50 or older with low bone mass and a 10 year probability of a major osteoporosis related fracture = or greater than 20% or a 10 year probability of a hip fracture = or greater than 3% should be considered for treatment. For further information, including treatment recommendations, please refer to the 2013 ISCD Official Positions (http://www.iscd.org) and the NOF's Clinician's Guide to Prevention and Treatment of Osteoporosis (http://www.nof.org/professionals/clinical-guidelines) THIS IS AN ELECTRONICALLY VERIFIED FINAL REPORT 08/30/2021 8:30 AM - Electronically signed by Lewis Ba M.D. AB: Report ID: [id number] Reading Location: [id number] Procedure Note Lewis Ba MD - 08/30/2021 EXAM DESCRIPTION: DEXA AXIAL SKELETON BONE DENSITY 1 OR MORE SITES REASON FOR STUDY: Post-menopausal female, screening for osteoporosis. Youth Specialist/Model: [employer] A (S/N [id number]) CLINICAL INFORMATION: Current height: 65 inches Maximum height: 66 inches Weight: 160 pounds Risk factors: None COMPARISON: None available. FINDINGS: AP LUMBAR SPINE L1-L3: Total BMD is 0.813 g/cm2 T-score is -1.9 LEFT HIP: Total BMD is 0.785 g/cm2 T-score is -1.3 Femoral neck BMD is 0.518 g/cm2 T-score is -3.0 IMPRESSION: Osteoporosis by WHO criteria. REFERENCE: Bone mineral density: Normal (T-score above or = -1.0) Low bone mass (T-score between -1.0 and -2.5) replaces thepreviously used term osteopenia Osteoporosis (T-score = or below -2.5) Medical evaluation for secondary causes of low bone mineral density may be appropriate. FRAX is a World Health Organization validated fracture risk assessmenttool that calculates a person's 10 year probability of a major osteoporosisrelated fracture and hip fracture. According to the National OsteoporosisFoundation guidelines, postmenopausal women and men age 50 or older with low bonemass and a 10 year probability of a major osteoporosis related fracture = or greater than 20% or a 10 year probability of a hip fracture = or greaterthan 3% should be considered for treatment. For further information, including treatment recommendations, please referto the 2013 ISCD Official Positions (http://www.iscd.org) and the NOF's Clinician's Guide to Prevention and Treatment of Osteoporosis (http://www.nof.org/professionals/clinical-guidelines) THIS IS AN ELECTRONICALLY VERIFIED FINAL REPORT 08/30/2021 8:30 AM - Electronically signed by Lewis Ba M.D. AB: Report ID: [id number] Reading Location: [id number] Dillon Lee MD IMG DXA PROCEDURES Final Result * Diagnostic Mammogram (07/21/2021) Anatomical Region Laterality Modality Breast Mammography Historical Provider IMG MAMMO PROCEDURES Gwendolyn l Result * Colonoscopy (07/15/2020) Anatomical Region Laterality Modality Other Historical Provider ENDOSCOPY PROCEDURES Gwendolyn l Result from Last 3 Months or Most Recently Relevant to Health Maintenance Additional Health Concerns Infection Onset Date Last Indicated COVID: Recovered Comment:Added based on recent COVID infection. 09/25/2024 025 Insurance MEDICARE FOR LIFE MEDICARE FOR LIFE [employer] [facility] MEDICARE [facility] Address: [facility] [address] [place] [address] Advance Directives For more information, please contact: [phone] Documents on File Type Date Recorded Patient Corporate Risk Analyst Expl anation ADVANCE DIRECTIVE 09/01/2016 12:00 AM POWER OF MACHINE LEATHER TRIMMER FINANCIAL/MEDICAL * Full Code (Latest Code Status on File) Date Activated Date Inactivated Comments 02/11/2022 4:26 AM 02/11/2022 9:11 PM * Full Code Date Activated Date Inactivated Comments 07/31/2018 7:13 PM 08/02/2018 9:17 PM Care Teams Industrial Safety And Health Specialist Relationship Specialty Start Date End Date Valeriano Landa MD [address] [place] [address] [address] [place] [address] PCP - General Family Medicine 12/28/22 Nohemi Ocampo LPN [address] [facility] [place] [address] Senior Major Gifts Officer 02/13/22
--- OUTSIDE RECORDS SUMMARY | 2024-10-13 08:38 | XMS_ITS | Encounter Summary ---
Author Organization [facility] Facility Care Team Providers Care Cigar Tobacco Rehandler Name Role Phone Dillon Lee MD Primary Care Provider [phone] Tere Quispe RN Unavailable [phone] Emily Ryan MA Unavailable Nohemi Ocampo LPN Unavailable [phone] Jurgen Davis MD Unavailable + [phone] Dillon Lee MD Primary Care Provider [phone] Jurgen Davis MD Unavailable [phone] Dillon Lee MD Primary Care Provider [phone] Nohemi Ocampo LPN Unavailable [phone] Valeriano Landa MD Primary Care Provider [phone] Encounter Details Date Type Department Care Team (Latest Contact Info) Description 09/05/2016 Orders Only [facility] CLINCONV ProviderFelicity MD [address] [place] [address] Social History Tobacco Use Types Packs/Day Years Used Date Smoking Tobacco: Never Comments Unknown Sex and Gender Information Value Date Recorded Sex Assigned at Not on file Legal Sex Female 1:11 AM OPERATIONS VICE PRESIDENT Gender Identity Female 09/07/2022 5:09 AM OPERATIONS VICE PRESIDENT Sexual Orientation Straight 09/07/2022 5: 09 AM OPERATIONS VICE PRESIDENT documented as of this encounter Plan of Treatment Not on file documented as of this encounter Procedures Procedure Name Priority Date/Time Associated Diagnosis Comments CARDIOLOGY REPORT 09/12/2016 12: 00 AM CDT documented in this encounter Results * CARDIOLOGY REPORT (09/12/2016 12:00 AM CDT) Anatomical Region Laterality Modality Other Narrative 09/12/2016 12:00 AM CDT Ordered by an unspecified provider. us Historical Provider [facility] Final Result documented in this encounter Visit Diagnoses Not on filedocumented in this encounter Additional Health Concerns Infection Onset Date Last Indicated Resolved Time COVID: Suspected 09/06/2021 09/06/2021 09/07/2021 3:05 AM OPERATIONS VICE PRESIDENT COVID: Suspected 09/06/2021 09/06/2021 09/07/2021 6:32 AM OPERATIONS VICE PRESIDENT COVID: Suspected 01/13/2022 01/13/2022 01/13/2022 4:30 PM [...] COVID: Suspected 06/06/2023 06/06/2023 06/06/2023 8:20 AM OPERATIONS VICE PRESIDENT COVID: Suspected 06/06/2023 06/06/2023 06/06/2023 5:51 PM OPERATIONS VICE PRESIDENT COVID19 06/06/2023 06/06/2023 06/16/2023 3:05 AM OPERATIONS VICE PRESIDENT COVID: Suspected 12/17/2023 12/17/2023 12/17/2023 12:47 PM CDT COVID: Suspected 09/15/2024 09/15/2024 09/15/2024 10:27 AM CDT COVID19 09/15/2024 09/15/2024 09/25/2024 3:07 AM CDT COVID: Recovered Comment:Added based on recent COVID infection. 09/25/2024 10/10/2024 documented as of this encounter Care Teams Cigar Tobacco Rehandler Relationship Specialty Start Date End Date Dillon Lee MD PCP - General Family Medicine 05/10/18 02/05/19 Jurgen Davis MD [address] [place] [address] [address] [place] [address] PCP - Cardiology Interventional Cardiology 02/06/19 06/17/19 Dillon Lee MD PCP - General Family Medicine 02/24/19 06/17/19 Dillon Lee MD PCP - General Family Medicine 06/18/19 12/27/22 Valeriano Landa MD [address] [place] [address] [address] [place] [address] PCP - General Family Medicine 12/28/22 Tere Quispe, RN CJR Outpatient Lead Generation Marketing Manager 07/25/18 10/30/18 Emily Ryan MA [address] [place] [address] ACO Care Remelt Operator 08/06/18 08/14/18 Nohemi Ocampo LPN [address] [place] [address] [address] Coater Smoking Pipe 08/16/18 09/25/18 Jurgen Davis MD [address] [place] [address] [address] [place] [address] Administrative Supervisor Interventional Cardiology 02/25/19 06/17/19 Nohemi Ocampo LPN [address] [place] [address] [address] [place] [address] Coater Smoking Pipe 02/13/22 documented as of this encounter
--- OUTSIDE RECORDS SUMMARY | 2024-10-13 08:38 | XMS_ITS | Clinical Summary ---
Author Organization [facility] Address [address] [place] [address] Care Team Providers Care Log Snaker Name Role Phone Nohemi Ocampo LPN Unavailable [phone] Valeriano Landa MD Primary Care Provider [phone] Allergies Active Allergy Reactions Criticality Noted Date [...] hyperactivity Rabeprazole Headache Low 04/17/2017 Headache Zoledronic Cojm-Cetgwgtm-Uwsdk Stomach upset Low 09/18/2018 Tramadol Agitation Low [...] TO SUBSTITUTE IF ALTERNATIVE CHEAPER 1 each 11 01/06/20 22 025 Active diclofenac sodium (VOLTAREN) 1 % gel 03/28/20 23 Active Repatha SureClick 140 mg/mL pen injector INJECT 1 ML (140 MG TOTAL) UNDER THE SKIN EVERY 14 DAYS 6 mL 3 02/26/20 24 Active potassium chloride ER 10 [...] 24 hr tabletIndicati ons: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 Take 1 [...] 24 hr tabletIndicati ons: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 TAKE 1 [...] (05/30/2018): Added automatically from request for surgery [id number] Assessment & Plan (11/13/2019 3:50 PM CDT): [...] disease) 04/18/2016 02/11/2022 Angina pectoris 04/04/2016 02/11/2022 Encounters Date Type Department Care Team Description 10/10/2024 3:00 PM CDT Office Visit [facility] Cardiology at [address] [place] [phone] Lynette Florez MD 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 (Primary Dx); Hyperlipidemia LDL goal <70; Nonrheumatic tricuspid valve regurgitation; Essential (primary) hypertension 09/15/2024 10:30 AM CDT Office Visit [facility] at [address] [phone] Dom Cardenas NP Cough, unspecified type (Primary Dx); Acute cough 08/29/2024 Telephone [facility] Cardiology [address] [place] [address] [address] [place] [phone] Lynette Florez MD defective repatha pen 08/19/2024 Results Follow-Up [facility] Cardiology [address] [place] [place] [address] [address] [place] [phone] Lynette Florez MD 08/19/2024 Telephone [facility] Cardiology [address] [place] [place] [address] [address] [place] [phone] Lynette Florez MD medication replacement; Test Results 08/14/2024 12:30 PM ALUMINUM FABRICATION SUPERVISOR Ancillary Procedure [facility] Cardiology at [address] [place] [address] Essential (primary) hypertension; Nonrheumatic tricuspid valve regurgitation; MATOS (dyspnea on exertion) 08/11/2024 7:45 AM ALUMINUM FABRICATION SUPERVISOR Ancillary Procedure [facility] Cardiology [address] [facility] [address] [place] [address] 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; Chest heaviness 08/05/2024 9:15 AM ALUMINUM FABRICATION SUPERVISOR Office Visit [facility] Cardiology at [address] [place] [address] Lynette Florez MD 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 (Primary Dx); Essential (primary) hypertension; Hyperlipidemia LDL goal <70; Nonrheumatic tricuspid valve regurgitation; STEPHENIE (obstructive sleep apnea); MATOS (dyspnea on exertion); Chest heaviness 08/05/2024 Orders Only [facility] Cardiology [address] [facility] [address] [place] [address] Provider, MD Felicity from Last 3 Months Immunizations Immunization Administration Dates Next Due Influenza, Quadrivalent, Hig h Dose, Preservative Free, Intrr 04/15/2021,05/01/2020 Influenza, Trivalent, High D ose, Split, Preservative Free, Intramuscular 06/26/2019 Surgical History Surgery Date Site/Laterality Comments HERNIA REPAIR 2011 TOTAL SHOULDER REPLACEMENT 07/02/2013 - 07/01/2014 Bilateral REPLACEMENT TOTAL KNEE 07/02/2011 - 07/01/2012 Right HYSTERECTOMY 07/02/1985 - 07/01/1986 CHOLECYSTECTOMY 2003 APPENDECTOMY 2003 LUMBAR FUSION L5-S1 REPLACEMENT TOTAL KNEE Left TOTAL SHOULDER REPLACEMENT Bilateral LUMBAR SPINE SURGERY N/A CARDIAC STENT PLACEMENT ORAL SURGERY COLONOSCOPY x 2 hx of diverticulosis UPPER GASTROINTESTINAL ENDOSCOPY x 3-4 / dilation / hx of hiatal hernia SECTION 1985 SPINE SURGERY 1998 ABDOMINAL SURGERY 2003 Medical History Medical History Date Comments CAD (coronary artery disease) MVP (mitral valve prolapse) Asthma 2017 GERD (gastroesophageal reflux disease) approx 20 03 Hypertension 1985 RLS (restless legs syndrome) Vitamin D deficiency Anxiety Approx 2002 Sleep difficulties Hyperlipidemia Insomnia STEPHENIE (obstructive sleep apnea) CAD (coronary artery disease) Osteopenia Mild intermittent asthma Osteoarthritis Other spondylosis, lumbosacral region Heart disease approx 2015 Diabetes (HCC) HL (hearing loss) Tinnitus Dizziness Cataract approx 2015 Hx of colonoscopy Dilatation of esophagus Osteoporosis 1990 Clotting disorder 2019 Family History Medical History Relation Name Comments Heart disease Brother Mohit Evans Heart disease Daughter Mehnaz Judy Hypertension Daughter Mehnaz Judy Obesity Daughter Mehnaz Judy Arthritis Father Tonny Evans Hearing loss Father Tonny Evans Heart disease Father Tonny Evans Hypertension Father Tonny Evans Diabetes Maternal Grandfather Mohit Richards Heart attack Mother Clarice Evans Heart disease Mother Clarice Evans Stroke Mother Clarice Evans Relation Name Status Comments Brother Mohit Evans Alive Daughter Mehnaz Kim Alive has two holes in her heart, and back problems, endometreosis Father Tonny Evans Maternal Grandfather Mohit Richards Mother Clarice Evans Social History Tobacco Use Types Packs/Day Years [...] and Family Once a week 02/06/2019 Attends Orthodox Services More than 4 times per year [...] staff should administer the PHQ-9) 1 04/15/2021 [facility] of Occupat ional Health - Occupational Stress [...] on file Legal Sex Female 1:11 AM ALUMINUM FABRICATION SUPERVISOR Gender Identity Female 09/07/2022 5:09 AM ALUMINUM FABRICATION SUPERVISOR Sexual Orientation Straight 09/07/2022 5: 09 AM ALUMINUM FABRICATION SUPERVISOR 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, 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 Not on file Not on file N ot on file Obstetrics History Para Term AB IAB SAB Ectopic Multiple Livin g Live Births 1 1 1 1 1 Date Outcome GA Total Labor Labor/2nd/3rd Weight Sex Type Anes PTL Leslie A1 A5 Name Clin Term 4.593 kg (10 lb 2 oz) CS-Un spec Living Last Filed Vital Signs Vital Sign Reading [...] 10/10/2024 2:47 PM CDT Plan of Treatment Health Maintenance Due Date Last Done Comments Dilated Eye Exam 1945 Foot Exam 1945 DTaP/Tdap/Td Vaccine (1 - Tdap) 1956 Hepatitis B Screening 1963 Pneumococcal vaccine 65+ (1 of 2 - PCV) 1964 Zoster Vaccine (1 of 2) 1995 Depression Screening 04/15/2022 04/15/2021, 02/25/2021, 04/14/2020, Additional history exists Well Visit 65+ 04/15/2022 04/15/2021, 04/01, 02/06/2019 Hemoglobin A1C 08/14/2022 02/11/2022, 03/0 07/2021, 04/14/2020, Additional history exists Albumin Creatinine Ratio, Urine 08/30/2022 Fall Risk Assessment 02/11/2023 02/11/2022, 02/03/2022, 04/15/2021, Additional history exists eGFR 02/11/2023 02/11/2022, 01/30, 08/30/2021, Additional history exists Osteoporosis Screening-Bone Density Scan 08/31/2023 08/30/2021, 04/06/2014 Covid-19 Vaccine ( - 2023-2 5 season) 2024 11/16/2021, 10/01/2020, 09/03/2020 Influenza Vaccine (Season Ended) 2025 04/15/2021, 05/01/2020, 06/26/2019, Additional history exists Lipid Panel 07/01/2025 07/01/2024, 10/31, 02/27/2023, Additional history exists Colon Cancer Screening-CT Colonography Discontinued 07/15/2020 Colon Cancer Screening-Colonoscopy Discontinued 07/15/2020 Colon Cancer Screening-DNA Stool Discontinued 07/15/19 21 Colon Cancer Screening-FIT Discontinued 07/15/2020 Colon Cancer Screening-FOBT Discontinued 07/15/2020 Colon Cancer Screening-Sigmoidoscopy Discontinued 07/15/2020 Colorectal Cancer Screening Discontinued Breast Cancer Screening-Mammogram Discontinued 022 Hepatitis C Screening Completed 08/30/2021 Medical Devices Implanted Type Area Quality Director Device Identifier Shelf Expiration Date Model / Serial / Lot Heart Stent N/A: Heart [employer] [id number] Evolution Mp 10mm Cruciate Retaining Knee Left 4 Standard Insert - [id number] Implanted:Qty: 1 on 07/31/2018 by Davey Lake MD at [facility] Left: Knee [employer] 11/09/2024 [id number] / / [id number] Tibal Base 4 Left Implanted:Qty: 1 on 07/31/2018 by Davey Lake MD at [facility] Left: Knee [employer] 06/11/2026 [id number] / / [id number] Femoral Component 5 Left Cementless Implanted:Qty: 1 on 07/31/2018 by Davey Lake MD at [facility] Left: Knee [employer] 04/12/2026 [id number] / / [id number] Pressfit Keel Primary 15mm Implanted:Qty: 1 on 07/31/2018 by Davey Lake MD at [facility] Left: Knee [employer] 05/29/2026 [id number] / / Explanted Type Area Quality Director Device Identifier Shelf Expiration Date Model / [...] DOPPLER/CF WO CONTRAST Routine 08/14/2024 12:55 PM ALUMINUM FABRICATION SUPERVISOR Essential (primary) hypertension Nonrheumatic tricuspid valve regurgitation MATOS (dyspnea on exertion) NM MPI SPECT (REST AND/OR STRESS) MULTIPLE STUDIES Schedule Routine, Read Routine (OP Routine) 08/11/2024 9:25 AM ALUMINUM FABRICATION SUPERVISOR 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 Chest heaviness LIPID PANEL Routine 07/01/2024 8:17 AM ALUMINUM FABRICATION SUPERVISOR EGFR Routine 02/11/2022 4:30 AM CDT HEMOGLOBIN A1C Routine 02/11/2022 4:30 AM CDT HEPATITIS C ANTIBODY Routine 08/30/2021 8:35 AM ALUMINUM FABRICATION SUPERVISOR Need for hepatitis C screening test ALBUMIN CREATININE RATIO, URINE Routine 08/30/2021 8:35 AM ALUMINUM FABRICATION SUPERVISOR Type 2 diabetes mellitus without complication, without long-term current use of insulin (HCC) DEXA AXIAL SKELETON BONE DENSITY 1 OR MORE SITES Schedule Routine, Read Routine (OP Routine) 08/30/2021 8:13 AM ALUMINUM FABRICATION SUPERVISOR Menopausal and perimenopausal disorder DIAGNOSTIC MAMMOGRAM Schedule Routine, Read Routine (OP Routine) 07/21/2021 COLONOSCOPY Routine 07/15/2020 from Last 3 Months or Most Recently Relevant to Health Maintenance Results * POCT rapid strep A (09/15/2024 10:28 AM CDT) [facility] Rapid Strep A, POC Negative Negative Swab 09/15/2024 10:2 8 AM CDT Dom Cardenas BILLIARD TABLE REPAIRER POINT OF CARE TEST ORDERABLES F inal Result * (ABNORMAL) POC Influenza A/B, COVID-19 antigen (09/15/2024 10:27 AM CDT) [facility] Influenza A Ag, POC Negative Negative [facility] EDW Influenza B Ag, POC Negative Negative [facility] EDW COVID-19 Ag POC Positive(A) Presumptive Negative, Invalid [facility] ED[facility] Nasal 09/15/2024 10:2 7 AM CDT Dom Cardenas BILLIARD TABLE REPAIRER POINT OF CARE TEST ORDERABLES F inal Result [facility] EDW [address] [place] [address] * TRANSTHORACIC ECHO (TTE) COMPLETE W DOPPLER/CF WO CONTRAST (08/14/2024 12:55 PM ALUMINUM FABRICATION SUPERVISOR) LV EF 70 % CONS SCIMAGE Anatomical Region Laterality Modality Ultrasound 08/14/2024 12:1 6 PM ALUMINUM FABRICATION SUPERVISOR Narrative 08/14/2024 6:01 PM ALUMINUM FABRICATION SUPERVISOR [facility] Card[facility] [address], [address], [place] [address] P:[phone] P:[phone] Echocardiographic Report Patient Name: DEE BENOIT A [...] FINDINGS: Interpretation Site: Exam was interpreted at [facility]. Left Ventricle: Normal left ventricular size. [...] sclerotic. Electronically Signed By: Valeriano Burton MD, [facility] 08/14/2024 6:00:50 PM ALUMINUM FABRICATION SUPERVISOR Procedure Note Valeriano Burton MD - 08/14/2024 [facility] [address] [facility], [address], [place] [address] P:[phone] P:[phone] Echocardiographic Report Patient Name: DEE BENOIT A [...] FINDINGS: Interpretation Site: Exam was interpreted at [facility]. Left Ventricle: Normal left ventricular size. [...] sclerotic. Electronically Signed By: Valeriano Burton MD, [facility] 08/14/2024 6:00:50 PM ALUMINUM FABRICATION SUPERVISOR us Lynette Florez MD CV ECHO PROCEDURES Final Result * NM MPI SPECT (Rest and/or Stress) Multiple Studies (08/11/2024 9:25 AM ALUMINUM FABRICATION SUPERVISOR) Anatomical Region Laterality Modality Body N/A Nuclear Medicine 08/11/2024 8:23 AM ALUMINUM FABRICATION SUPERVISOR Narrative 08/12/2024 11:07 AM ALUMINUM FABRICATION SUPERVISOR [facility] [address] [facility] [address], [place] [address] [address] [facility], [place] [address] P:[phone] P:[phone] MPI Imaging Report Patient Name: DEE BENOIT A : 1945 Study Date: 08/11/2024 8:23:14 AM Gender: F Tech: VARGAS GALLARDOMT Location: [facility] Provider: LYNETTE FLOREZ Height(Cm): 166.4 BSA: Weight(Kg): 75.3 BMI: 27.19 Order Provider: LYNETTE FLOREZ PHYSICIAN: Referring Physician: Dr. Lanad. HCG Physician: Jose E Florez M.D. Interpreting [...] High Cholesterol, I25.118 Atherosclerotic heart disease of little traverse coronary artery with other forms of angina [...] %. Electronically Signed By: [facility] 08/11/2024 2:07:20 PM ALUMINUM FABRICATION SUPERVISOR Electronically Signed By: Daly Hollingsworth DO, NKIOLAI, RADHA, CAROL 08/12/2024 11:04:39 AM ALUMINUM FABRICATION SUPERVISOR Procedure Note Daly Hollingsworth DO - 08/12/2024 [facility] [address] [facility] [address], [place] [address] [address] [facility] [address], [place] [address] P:[phone] P:[phone] MPI Imaging Report Patient Name: DEE BENOIT A : 1945 Study Date: 08/11/2024 8:23:14 AM Gender: F Tech: SAMI [facility] Location: [facility] Provider: LYNETTE FLOREZ Height(Cm): 166.4 BSA: [...] CAD, HighCholesterol, I25.118 Atherosclerotic heart disease of little traverse coronary artery with other formsof angina pectoris, [...] Dr. Navarro Hatfield FACC 08/11/2024 2:07:20 PM ALUMINUM FABRICATION SUPERVISOR Electronically Signed By: Daly Hollingsworth DO, NIKOLAI, CAROL GARCIA 08/12/2024 11:04:39 AM ALUMINUM FABRICATION SUPERVISOR us Lynette Florez MD IM NM PROCEDURES Final R esult * (ABNORMAL) Lipid panel (07/01/2024 8:17 AM ALUMINUM FABRICATION SUPERVISOR) SCRIBED Cholesterol, Total 110 0 - 200 EXTERNAL LAB SCRIBED HDL 41 40 - 100 EXTERNAL LAB SCRIBED LDL 34 0 - 100 EXTERNAL LAB SCRIBED Triglycerides 173(A) 0 - 150 EXTERNAL LAB Blood Historical Provider LAB BLOOD ORDERABLES Edit ed Result - Final EXTERNAL LAB * eGFR (02/11/2022 4:30 AM CDT) Pathologist [facility] eGFR 76 mL/min/1. 73 m2 TWAN TYLER [...] data was last reviewed 2021. Blood 02/11/2022 4:30 AM CDT 02/11/2022 4:32 AM CDT us Giorgio Leonardo MD LAB BLOOD ORDERABLES Final Result TWAN TYLER [address] [facility] Department [place] [address] * (ABNORMAL) Hemoglobin A1c (02/11/2022 4:30 AM CDT) Pathologist [facility] Hgb A1C 6.3(H) 4.0 - 5.6 % TWAN TYLER Estimated Average Glucose 134 mg/dL TWAN TYLER Comment: The ADA recommends reporting an estimated Average Glucose (eAG) with all Hemoglobin A1c results using the equation derived from a study of 507 normal and diabetic adults. Minority populations were underrepresented and children were not included. (Diabetes Care 31:5345-9154, 2008). The eAG is not equivalent to a fasting glucose. Blood 02/11/2022 4:30 AM CDT 02/11/2022 4:32 AM CDT Giorgio Leonardo MD LAB BLOOD ORDERABLES Final Result Performing Organization Address [facility] de Phone Number [facility] [address] [facility] [employer] [place] [address] * Hepatitis C antibody (08/30/2021 8:35 AM ALUMINUM FABRICATION SUPERVISOR) Pathologist [facility] Hep C Ab Nonreactive Nonreactive TWAN Comment: Interpretive Data Nonreactive: Antibodies to HCV [...] revised on 2019. Blood 08/30/2021 8:35 AM ALUMINUM FABRICATION SUPERVISOR 08/30/2021 10:39 AM ALUMINUM FABRICATION SUPERVISOR Dillon Lee MD LAB MICROBIOLOGY - GENERAL LOGAN MIRZA Final Result Performing Organization Address [facility] de Phone Number [facility] [address] [facility] [place] [address] * Albumin Creatinine Ratio, Urine (08/30/2021 8:35 AM ALUMINUM FABRICATION SUPERVISOR) Pathologist [facility] Albumin Ur <12.0 mg/L TWAN Comment: Interpretive Data No reference range established. Current interpretive data was last revised 2018. Testing performed by: [facility], [address] [place] [address]., [address] Creatinine Ur 347.0 mg/dL TWAN TYLER Comment: Interpretive Data No reference range established. Current interpretive data was last revised 2018. Testing performed by: [facility], [address] [place] [address]., [address] Albumin Creatinine Ratio, Ur <3 1 - 29 mg/g TWAN TYLER Comment:Testing performed by : [facility], [address] [place] [address]., [address] Urine 08/30/2021 8:35 AM ALUMINUM FABRICATION SUPERVISOR 08/30/2021 9:59 AM ALUMINUM FABRICATION SUPERVISOR us Dillon Lee MD LAB URINE ORDERABLES Final Resu lt TWAN TYLER [address] [facility] Department [place] [address] * Dexa Axial Skeleton Bone Density 1 Or 2 Site (08/30/2021 8:13 AM ALUMINUM FABRICATION SUPERVISOR) Anatomical Region Laterality Modality Body N/A Mammography 08/30/2021 8:29 AM ALUMINUM FABRICATION SUPERVISOR Narrative 08/30/2021 8:30 AM ALUMINUM FABRICATION SUPERVISOR EXAM DESCRIPTION: DEXA AXIAL SKELETON BONE DENSITY 1 OR MORE SITES REASON FOR STUDY: Post-menopausal female, screening for osteoporosis. Quality Director/Model: ClearView™ Audio A (S/N [id number]) CLINICAL INFORMATION: Current height: 65 inches Maximum [...] by Lewis Ba M.D. AB: Report ID: [id number] Reading Location: [id number] Procedure Note Lewis Ba MD - 08/30/2021 EXAM DESCRIPTION: DEXA AXIAL SKELETON BONE DENSITY 1 OR MORE SITES REASON FOR STUDY: Post-menopausal female, screening for osteoporosis. Quality Director/Model: ClearView™ Audio A (S/N [id number]) CLINICAL INFORMATION: Current height: 65 inches Maximum [...] by Lewis Ba M.D. AB: Report ID: [id number] Reading Location: [place] [address] Dillon Lee MD IMG DXA PROCEDURES Final [...] Insurance MEDICARE FOR LIFE MEDICARE FOR LIFE FOR LIFE MEDICARE Advance Directives For more information, please contact: [phone] Documents on File Type Date Recorded Patient Poiser Balance Expl anation ADVANCE DIRECTIVE 09/01/2016 12:00 AM POWER OF FLORAL MANAGER FINANCIAL/MEDICAL * Full Code (Latest Code Status on File) Date Activated Date Inactivated Comments 02/11/2022 4:26 AM 02/11/2022 9:11 PM * Full Code Date Activated Date Inactivated Comments 07/31/2018 7:13 PM 08/02/2018 9:17 PM Care Teams Log Snaker Relationship Specialty Start Date End Date Valeriano Landa MD [address] [facility] [address] [place] [address] PCP - General Family Medicine 12/28/22 Nohemi Ocampo LPN [address] [place] [address] Director Hematology 02/13/22
--- OUTSIDE RECORDS SUMMARY | 2024-10-13 08:38 | XMS_ITS | Encounter Summary ---
Author Organization [facility] Care Team Providers Care Extrusion Bender Name Role Phone Dillon Lee MD Primary Care Provider [phone] Tere Quispe RN Unavailable [phone] Emily Ryan MA Unavailable Nohemi Ocampo LPN Unavailable [phone] Jurgen Davis MD Unavailable [phone] Dillon Lee MD Primary Care Provider [phone] Jurgen Davis MD Unavailable [phone] Dillon Lee MD Primary Care Provider [phone] Nohemi Ocampo LPN Unavailable [phone] Valeriano Landa MD Primary Care Provider [phone] Encounter Details Date Type Department Care Team (Latest Contact Info) Description 05/13/2016 Orders Only [facility] CLINCONV ProviderFelicity MD [address] [place] [address] Social History Tobacco Use Types Packs/Day Years Used Date Smoking Tobacco: Never Comments Unknown Sex and Gender Information Value Date Recorded Sex Assigned at Not on file Legal Sex Female 1:11 AM ENVELOPE MAKER Gender Identity Female 09/07/2022 5:09 AM ENVELOPE MAKER Sexual Orientation Straight 09/07/2022 5: 09 AM ENVELOPE MAKER documented as of this encounter Plan of Treatment Not on file documented as of this encounter Procedures Procedure Name Priority Date/Time Associated Diagnosis Comments CARDIOLOGY REPORT 05/13/2016 12: 00 AM ENVELOPE MAKER documented in this encounter Results * CARDIOLOGY REPORT (05/13/2016 12:00 AM ENVELOPE MAKER) Anatomical Region Laterality Modality Other Narrative 05/13/2016 12:00 AM ENVELOPE MAKER Ordered by an unspecified provider. us Historical Provider [facility] Final Result documented in this encounter Visit Diagnoses Not on filedocumented in this encounter Additional Health Concerns Infection Onset Date Last Indicated Resolved Time COVID: Suspected 09/06/2021 09/06/2021 09/07/2021 3:05 AM ENVELOPE MAKER COVID: Suspected 09/06/2021 09/06/2021 09/07/2021 6:32 AM ENVELOPE MAKER COVID: Suspected 01/13/2022 01/13/2022 01/13/2022 4:30 PM [...] COVID: Suspected 06/06/2023 06/06/2023 06/06/2023 8:20 AM ENVELOPE MAKER COVID: Suspected 06/06/2023 06/06/2023 06/06/2023 5:51 PM ENVELOPE MAKER COVID19 06/06/2023 06/06/2023 06/16/2023 3:05 AM ENVELOPE MAKER COVID: Suspected 12/17/2023 12/17/2023 12/17/2023 12:47 PM CDT COVID: Suspected 09/15/2024 09/15/2024 09/15/2024 10:27 AM CDT COVID19 09/15/2024 09/15/2024 09/25/2024 3:07 AM CDT COVID: Recovered Comment:Added based on recent COVID infection. 09/25/2024 10/10/2024 documented as of this encounter Care Teams Extrusion Bender Relationship Specialty Start Date End Date Dillon Lee MD PCP - General Family Medicine 05/10/18 02/05/19 Jurgen Davis MD [address] [place] [address] [address] [place] [address] PCP - Cardiology Interventional Cardiology 02/06/19 06/17/19 Dillon Lee MD PCP - General Family Medicine 02/24/19 06/17/19 Dillon Lee MD PCP - General Family Medicine 06/18/19 12/27/22 Valeriano Landa MD [address] [place] [address] [address] [place] [address] PCP - General Family Medicine 12/28/22 Tere Quispe RN CJR Outpatient Wind Tunnel Mechanic 07/25/18 10/30/18 Emily Ryan MA [address] [place] [address] ACO Care Correction Officer 08/06/18 08/14/18 Nohemi Ocampo, TAMMIE [address] [place] [address] [address] [place] [address] Communications Scientist 08/16/18 09/25/18 Jurgen Davis MD [address] [place] [address] [address] [place] [address] Sports Book Server Interventional Cardiology 02/25/19 06/17/19 Nohemi Ocampo LPN [address] [place] [address] [address] [place] [address] Communications Scientist 02/13/22 documented as of this encounter
--- OUTSIDE RECORDS SUMMARY | 2024-10-13 08:38 | XMS_ITS | Encounter Summary ---
Author Organization [facility] Facility Care Team Providers Care Brain Wave Technician Name Role Phone Dillon Lee MD Primary Care Provider +[phone] Tere Quispe RN Unavailable +[phone] Emily Ryan MA Unavailable Nohemi Ocampo LPN Unavailable +[phone] Jurgen Davis MD Unavailable +[phone] Dillon Lee MD Primary Care Provider +[phone] Jurgen Davis MD Unavailable + [phone] Dillon Lee MD Primary Care Provider +[phone] Nohemi Ocampo LPN Unavailable +[phone] Valeriano Landa MD Primary Care Provider +[phone] Encounter Details Date Type Department Care Team (Latest Contact Info) Description 05/05/2016 Orders Only [facility] CLINCONV ProviderFelicity MD [address] [place] [address] Social History Tobacco Use Types Packs/Day Years Used Date Smoking Tobacco: Never Comments Unknown Sex and Gender Information Value Date Recorded Sex Assigned at Not on file Legal Sex Female 1:11 AM STOKER INSTALLATION MECHANIC Gender Identity Female 09/07/2022 5:09 AM STOKER INSTALLATION MECHANIC Sexual Orientation Straight 09/07/2022 5: 09 AM STOKER INSTALLATION MECHANIC documented as of this encounter Plan of Treatment Not on file documented as of this encounter Procedures Procedure Name Priority Date/Time Associated Diagnosis Comments CARDIOLOGY REPORT 05/08/2016 12: 00 AM STOKER INSTALLATION MECHANIC documented in this encounter Results * CARDIOLOGY REPORT (05/08/2016 12:00 AM STOKER INSTALLATION MECHANIC) Anatomical Region Laterality Modality Other Narrative 05/08/2016 12:00 AM STOKER INSTALLATION MECHANIC Ordered by an unspecified provider. us Historical Provider [facility] Final Result documented in this encounter Visit Diagnoses Not on filedocumented in this encounter Additional Health Concerns Infection Onset Date Last Indicated Resolved Time COVID: Suspected 09/06/2021 09/06/2021 09/07/2021 3:05 AM STOKER INSTALLATION MECHANIC COVID: Suspected 09/06/2021 09/06/2021 09/07/2021 6:32 AM STOKER INSTALLATION MECHANIC COVID: Suspected 01/13/2022 01/13/2022 01/13/2022 4:30 [...] COVID: Suspected 06/06/2023 06/06/2023 06/06/2023 8:20 AM STOKER INSTALLATION MECHANIC COVID: Suspected 06/06/2023 06/06/2023 06/06/2023 5:51 PM STOKER INSTALLATION MECHANIC COVID19 06/06/2023 06/06/2023 06/16/2023 3:05 AM STOKER INSTALLATION MECHANIC COVID: Suspected 12/17/2023 12/17/2023 12/17/2023 12:47 PM CDT COVID: Suspected 09/15/2024 09/15/2024 09/15/2024 10:27 AM CDT COVID19 09/15/2024 09/15/2024 09/25/2024 3:07 AM CDT COVID: Recovered Comment:Added based on recent COVID infection. 09/25/2024 10/10/2024 documented as of this encounter Care Teams Brain Wave Technician Relationship Specialty Start Date End Date Dillon Lee MD PCP - General Family Medicine 05/10/18 02/05/19 Jurgen Davis MD [address] [place] [address] [address] [place] [address] PCP - Cardiology Interventional Cardiology 02/06/19 06/17/19 Dillon Lee MD PCP - General Family Medicine 02/24/19 06/17/19 Dillon Lee MD PCP - General Family Medicine 06/18/19 12/27/22 Valeriano Lanad MD [address] [place] [address] [address] [place] [address] PCP - General Family Medicine 12/28/22 Tere Quispe RN CJR Outpatient Computer Graphics Illustrator 07/25/18 10/30/18 Emily Ryan MA [address] [place] [address] ACO Care Spinning Mule Tender 08/06/18 08/14/18 Nohemi Ocampo, TAMMIE [address] [place] [address] [address] [place] [address] School Bus Technician 08/16/18 09/25/18 Jurgen Davis MD [address] [place] [address] [address] [place] [address] Foreign Student Adviser Interventional Cardiology 02/25/19 06/17/19 Nohemi Ocampo LPN [address] [place] [address] [address] [place] [address] School Bus Technician 02/13/22 documented as of this encounter
--- OUTSIDE RECORDS SUMMARY | 2024-10-13 08:38 | XMS_ITS | Encounter Summary ---
Author Organization [facility] Facility Care Team Providers Care Hair Weaver Name Role Phone Dillon Lee MD Primary Care Provider +[phone] Tere Quispe RN Unavailable +[phone] Emily Ryan MA Unavailable Nohemi Ocampo LPN Unavailable +[phone] Jurgen Davis MD Unavailable + [phone] Dillon Lee MD Primary Care Provider +[phone] Jurgen Davis MD Unavailable + [phone] Dillon Lee MD Primary Care Provider +[phone] oNhemi Ocampo LPN Unavailable +[phone] Valeriano Landa MD Primary Care Provider +[phone] Encounter Details Date Type Department Care Team (Latest Contact Info) Description 05/10/2016 Orders Only [facility]G CLINCONV ProviderFelicity MD [address] [place] [address] Social History Tobacco Use Types Packs/Day Years Used Date Smoking Tobacco: Never Comments Unknown Sex and Gender Information Value Date Recorded Sex Assigned at Not on file Legal Sex Female 1:11 AM JUDICIAL CLERK Gender Identity Female 09/07/2022 5:09 AM JUDICIAL CLERK Sexual Orientation Straight 09/07/2022 5: 09 AM JUDICIAL CLERK documented as of this encounter Plan of Treatment Not on file documented as of this encounter Procedures Procedure Name Priority Date/Time Associated Diagnosis Comments CARDIOLOGY REPORT 05/10/2016 12: 00 AM JUDICIAL CLERK documented in this encounter Results * CARDIOLOGY REPORT (05/10/2016 12:00 AM JUDICIAL CLERK) Anatomical Region Laterality Modality Other Narrative 05/10/2016 12:00 AM JUDICIAL CLERK Ordered by an unspecified provider. us Historical Provider [facility] Final Result documented in this encounter Visit Diagnoses Not on filedocumented in this encounter Additional Health Concerns Infection Onset Date Last Indicated Resolved Time COVID: Suspected 09/06/2021 09/06/2021 09/07/2021 3:05 AM JUDICIAL CLERK COVID: Suspected 09/06/2021 09/06/2021 09/07/2021 6:32 AM JUDICIAL CLERK COVID: Suspected 01/13/2022 01/13/2022 01/13/2022 4:30 [...] COVID: Suspected 06/06/2023 06/06/2023 06/06/2023 8:20 AM JUDICIAL CLERK COVID: Suspected 06/06/2023 06/06/2023 06/06/2023 5:51 PM JUDICIAL CLERK COVID19 06/06/2023 06/06/2023 06/16/2023 3:05 AM JUDICIAL CLERK COVID: Suspected 12/17/2023 12/17/2023 12/17/2023 12:47 PM CDT COVID: Suspected 09/15/2024 09/15/2024 09/15/2024 10:27 AM CDT COVID19 09/15/2024 09/15/2024 09/25/2024 3:07 AM CDT COVID: Recovered Comment:Added based on recent COVID infection. 09/25/2024 10/10/2024 documented as of this encounter Care Teams Hair Weaver Relationship Specialty Start Date End Date Dillon Lee MD PCP - General Family Medicine 05/10/18 02/05/19 Jurgen Davis MD [address] [place] [address] [address] [place] [address] PCP - Cardiology Interventional Cardiology 02/06/19 06/17/19 Dillon Lee MD PCP - General Family Medicine 02/24/19 06/17/19 Dillon Lee MD PCP - General Family Medicine 06/18/19 12/27/22 Valeriano Landa MD [address] [place] [address] [address] [place] [address] PCP - General Family Medicine 12/28/22 Tere Quispe RN CJR Outpatient Segment Block Layer 07/25/18 10/30/18 Emily Ryan MA [address] [place] [address] ACO Care Tile Mason 08/06/18 08/14/18 Nohemi Ocampo, TAMMIE [address] [place] [address] [address] [place] [address] Supervisor Webbing 08/16/18 09/25/18 Jurgen Davis MD [address] [place] [address] [address] [place] [address] Cleat Thrower Interventional Cardiology 02/25/19 06/17/19 Nohemi Ocampo LPN [address] [place] [address] [address] [place] [address] Supervisor Webbing 02/13/22 documented as of this encounter
--- OUTSIDE RECORDS SUMMARY | 2024-10-13 08:38 | XMS_ITS | Encounter Summary ---
Author Organization [facility] Facility Care Team Providers Care Carbon Brush Maker Name Role Phone Dillon Lee MD Primary Care Provider +[phone] Tere Quispe RN Unavailable +[phone] Emily Ryan MA Unavailable Nohemi Ocampo LPN Unavailable +[phone] Jurgen Davis MD Unavailable + [phone] Dillon Lee MD Primary Care Provider +[phone] Jurgen Davis MD Unavailable + [phone] Dillon Lee MD Primary Care Provider +[phone] Nohemi Ocampo LPN Unavailable +[phone] Valeriano Landa MD Primary Care Provider +[phone] Encounter Details Date Type Department Care Team (Latest Contact Info) Description 05/04/2016 Orders Only [facility]G CLINCONV ProviderFelicity MD [address] [place] [address] Social History Tobacco Use Types Packs/Day Years Used Date Smoking Tobacco: Never Comments Unknown Sex and Gender Information Value Date Recorded Sex Assigned at Not on file Legal Sex Female 1:11 AM SILK WINDING MACHINE OPERATOR Gender Identity Female 09/07/2022 5:09 AM SILK WINDING MACHINE OPERATOR Sexual Orientation Straight 09/07/2022 5: 09 AM SILK WINDING MACHINE OPERATOR documented as of this encounter Plan of Treatment Not on file documented as of this encounter Procedures Procedure Name Priority Date/Time Associated Diagnosis Comments CARDIOLOGY REPORT 05/04/2016 12: 00 AM CDT documented in this encounter Results * CARDIOLOGY REPORT (05/04/2016 12:00 AM CDT) Anatomical Region Laterality Modality Other Narrative 05/04/2016 12:00 AM CDT Ordered by an unspecified provider. us Historical Provider [facility] Final Result documented in this encounter Visit Diagnoses Not on filedocumented in this encounter Additional Health Concerns Infection Onset Date Last Indicated Resolved Time COVID: Suspected 09/06/2021 09/06/2021 09/07/2021 3:05 AM SILK WINDING MACHINE OPERATOR COVID: Suspected 09/06/2021 09/06/2021 09/07/2021 6:32 AM SILK WINDING MACHINE OPERATOR COVID: Suspected 01/13/2022 01/13/2022 01/13/2022 [...] COVID: Suspected 06/06/2023 06/06/2023 06/06/2023 8:20 AM SILK WINDING MACHINE OPERATOR COVID: Suspected 06/06/2023 06/06/2023 06/06/2023 5:51 PM SILK WINDING MACHINE OPERATOR COVID19 06/06/2023 06/06/2023 06/16/2023 3:05 AM SILK WINDING MACHINE OPERATOR COVID: Suspected 12/17/2023 12/17/2023 12/17/2023 12:47 PM CDT COVID: Suspected 09/15/2024 09/15/2024 09/15/2024 10:27 AM CDT COVID19 09/15/2024 09/15/2024 09/25/2024 3:07 AM CDT COVID: Recovered Comment:Added based on recent COVID infection. 09/25/2024 10/10/2024 documented as of this encounter Care Teams Carbon Brush Maker Relationship Specialty Start Date End Date Dillon Lee MD PCP - General Family Medicine 05/10/18 02/05/19 Jurgen Davis MD [address] [place] [address] [address] [place] [address] PCP - Cardiology Interventional Cardiology 02/06/19 06/17/19 Dillon Lee MD PCP - General Family Medicine 02/24/19 06/17/19 Dillon Lee MD PCP - General Family Medicine 06/18/19 12/27/22 Valeriano Landa MD [address] [place] [address] [address] [place] [address] PCP - General Family Medicine 12/28/22 Tere Quispe, RN CJR Outpatient Flexo Press Operator 07/25/18 10/30/18 Emily Ryan MA [address] [place] [address] ACO Care Metal Alloy Scientist 08/06/18 08/14/18 Nohemi Ocampo LPN [address] [place] [address] [address] Foreign Exchange Dealer 08/16/18 09/25/18 Jurgen Davis MD [address] [place] [address] [address] [place] [address] President Financial Institution Interventional Cardiology 02/25/19 06/17/19 Nohemi Ocampo LPN [address] [place] [address] [address] [place] [address] Foreign Exchange Dealer 02/13/22 documented as of this encounter
--- OUTSIDE RECORDS SUMMARY | 2024-10-13 08:38 | XMS_ITS | Encounter Summary ---
Author Organization [facility] Facility Care Team Providers Care House Servant Name Role Phone Dillon Lee MD Primary Care Provider +[phone] Tere Quispe RN Unavailable +[phone] Emily Ryan MA Unavailable Nohemi Ocampo LPN Unavailable +[phone] Jurgen Davis MD Unavailable + [phone] Dillon Lee MD Primary Care Provider +[phone] Jurgen Davis MD Unavailable + [phone] Dillon Lee MD Primary Care Provider +[phone] Nohemi Ocampo LPN Unavailable +[phone] Valeriano Landa MD Primary Care Provider +[phone] Encounter Details Date Type Department Care Team (Latest Contact Info) Description 03/01/2017 Orders Only [facility]G CLINCONV ProviderFelicity MD [address] [place] [address] Social History Tobacco Use Types Packs/Day Years Used Date Smoking Tobacco: Never Comments Unknown Sex and Gender Information Value Date Recorded Sex Assigned at Not on file Legal Sex Female 1:11 AM QUALITY SYSTEM MANAGER Gender Identity Female 09/07/2022 5:09 AM QUALITY SYSTEM MANAGER Sexual Orientation Straight 09/07/2022 5: 09 AM QUALITY SYSTEM MANAGER documented as of this encounter Plan of Treatment Not on file documented as of this encounter Procedures Procedure Name Priority Date/Time Associated Diagnosis Comments PROCEDURE - RESULT 03/08/2017 12 :00 AM CDT documented in this encounter Results * PROCEDURE - RESULT (03/08/2017 12:00 AM CDT) Narrative 03/08/2017 12:00 AM CDT Ordered by an unspecified provider. us Historical Provider Final Res ult documented in this encounter Visit Diagnoses Not on filedocumented in this encounter Additional Health Concerns Infection Onset Date Last Indicated Resolved Time COVID: Suspected 09/06/2021 09/06/2021 09/07/2021 3:05 AM QUALITY SYSTEM MANAGER COVID: Suspected 09/06/2021 09/06/2021 09/07/2021 6:32 AM QUALITY SYSTEM MANAGER COVID: Suspected 01/13/2022 01/13/2022 01/13/2022 4:30 PM [...] COVID: Suspected 06/06/2023 06/06/2023 06/06/2023 8:20 AM QUALITY SYSTEM MANAGER COVID: Suspected 06/06/2023 06/06/2023 06/06/2023 5:51 PM QUALITY SYSTEM MANAGER COVID19 06/06/2023 06/06/2023 06/16/2023 3:05 AM QUALITY SYSTEM MANAGER COVID: Suspected 12/17/2023 12/17/2023 12/17/2023 12:47 PM CDT COVID: Suspected 09/15/2024 09/15/202409/15/2024 10:27 AM CDT COVID19 09/15/2024 09/15/2024 09/25/2024 3:07 AM CDT COVID: Recovered Comment:Added based on recent COVID infection. 09/25/2024 10/10/2024 documented as of this encounter Care Teams House Servant Relationship Specialty Start Date End Date Dillon Lee MD PCP - General Family Medicine 05/10/18 02/05/19 Jurgen Davis MD [address] [place] [address] [address] [place] [address] PCP - Cardiology Interventional Cardiology 02/06/19 06/17/19 Dillon Lee MD PCP - General Family Medicine 02/24/19 06/17/19 Dillon Lee MD PCP - General Family Medicine 06/18/19 12/27/22 Valeriano Landa MD [address] [place] [address] [address] [place] [address] PCP - General Family Medicine 12/28/22 Tere Quispe RN CJR Outpatient Geospatial Intelligence Analyst 07/25/18 10/30/18 Emily Ryan MA [address] [place] [address] ACO Care Rapier Insertion Loom Fixer 08/06/18 08/14/18 Nohemi Ocampo LPN [address] [place] [address] [address] [place] [address] Cabinet Abrasive Sandblaster 08/16/18 09/25/18 Jurgen Davis MD [address] [place] [address] [address] [place] [address] Cafeteria Counter Attendant Interventional Cardiology 02/25/19 06/17/19 Nohemi Ocampo LPN [address] [place] [address] Cabinet Abrasive Sandblaster 02/13/22 documented as of this encounter
--- OUTSIDE RECORDS SUMMARY | 2024-10-13 08:38 | XMS_ITS | Encounter Summary ---
Author Organization [facility] Facility Care Team Providers Care Drug Worker Name Role Phone Dillon Lee MD Primary Care Provider + [phone] Tere Quispe RN Unavailable +[phone] Emily Ryan MA Unavailable Nohemi Ocampo LPN Unavailable +[phone] Jurgen Davis MD Unavailable [phone] Dillon Lee MD Primary Care Provider +[phone] Jurgen Davis MD Unavailable + [phone] Dillon Lee MD Primary Care Provider +[phone] Nohemi Ocampo LPN Unavailable +[phone] Valeriano Landa MD Primary Care Provider [phone] Encounter Details Date Type Department Care Team (Latest Contact Info) Description 05/11/2016 Orders Only MMG CLINCONV ProviderFelicity MD [address] [place] [address] Social History Tobacco Use Types Packs/Day Years Used Date Smoking Tobacco: Never Comments Unknown Sex and Gender Information Value Date Recorded Sex Assigned at Not on file Legal Sex Female 1:11 AM RETAIL LEADER Gender Identity Female 09/07/2022 5:09 AM RETAIL LEADER Sexual Orientation Straight 09/07/2022 5: 09 AM RETAIL LEADER documented as of this encounter Plan of Treatment Not on file documented as of this encounter Procedures Procedure Name Priority Date/Time Associated Diagnosis Comments CARDIOLOGY REPORT 05/11/2016 12: 00 AM RETAIL LEADER documented in this encounter Results * CARDIOLOGY REPORT (05/11/2016 12:00 AM RETAIL LEADER) Anatomical Region Laterality Modality Other Narrative 05/11/2016 12:00 AM RETAIL LEADER Ordered by an unspecified provider. us Historical Provider [facility]STR[facility] Final Result documented in this encounter Visit Diagnoses Not on filedocumented in this encounter Additional Health Concerns Infection Onset Date Last Indicated Resolved Time COVID: Suspected 09/06/2021 09/06/2021 09/07/2021 3:05 AM RETAIL LEADER COVID: Suspected 09/06/2021 09/06/2021 09/07/2021 6:32 AM RETAIL LEADER COVID: Suspected 01/13/2022 01/13/2022 01/13/2022 4:30 PM [...] COVID: Suspected 06/06/2023 06/06/2023 06/06/2023 8:20 AM RETAIL LEADER COVID: Suspected 06/06/2023 06/06/2023 06/06/2023 5:51 PM RETAIL LEADER COVID19 06/06/2023 06/06/2023 06/16/2023 3:05 AM RETAIL LEADER COVID: Suspected 12/17/2023 12/17/2023 12/17/2023 12:47 PM CDT COVID: Suspected 09/15/2024 09/15/2024 09/15/2024 10:27 AM CDT COVID19 09/15/2024 09/15/2024 09/25/2024 3:07 AM CDT COVID: Recovered Comment:Added based on recent COVID infection. 09/25/2024 10/10/2024 documented as of this encounter Care Teams Drug Worker Relationship Specialty Start Date End Date Dillon Lee MD PCP - General Family Medicine 05/10/18 02/05/19 Jurgen Davis MD [address] [place] [address] [address] [place] [address] PCP - Cardiology Interventional Cardiology 02/06/19 06/17/19 Dillon Lee MD PCP - General Family Medicine 02/24/19 06/17/19 Dillon Lee MD PCP - General Family Medicine 06/18/19 12/27/22 Valeriano Landa MD [address] [place] [address] [address] [place] [address] PCP - General Family Medicine 12/28/22 Tere Quispe RN CJR Outpatient Coremaker Apprentice 07/25/18 10/30/18 Emily Ryan MA [address] [place] [address] ACO Care Project Management Specialist 08/06/18 08/14/18 Nohemi Ocampo, TAMMIE [address] [place] [address] [address] [place] [address] Senior Mobile Web Developer 08/16/18 09/25/18 Jurgen Davis MD [address] [place] [address] [address] [place] [address] Vocational Rehabilitation Counselor Interventional Cardiology 02/25/19 06/17/19 Nohemi Ocampo LPN [address] [place] [address] [address] [place] [address] Senior Mobile Web Developer 02/13/22 documented as of this encounter
--- OUTSIDE RECORDS SUMMARY | 2024-10-13 08:38 | XMS_ITS | Encounter Summary ---
Author Organization [facility] Facility Care Team Providers Care Spin Table Operator Name Role Phone Dillon Lee MD Primary Care Provider +[phone] Tere Quispe RN Unavailable +[phone] Emily Ryan MA Unavailable Nohemi Ocampo LPN Unavailable +3373 Jurgen Davis MD Unavailable + [phone] Dillon Lee MD Primary Care Provider +[phone] Jurgen Davis MD Unavailable + [phone] Dillon Lee MD Primary Care Provider +[phone] Nohemi Ocampo LPN Unavailable +[phone] Valeriano Landa MD Primary Care Provider [phone] Encounter Details Date Type Department Care Team (Latest Contact Info) Description 09/06/2016 Orders Only MMG CLINCONV ProviderFelicity MD [address] [place] [address] Social History Tobacco Use Types Packs/Day Years Used Date Smoking Tobacco: Never Comments Unknown Sex and Gender Information Value Date Recorded Sex Assigned at Not on file Legal Sex Female 1:11 AM INTERNAL COMMUNICATIONS WRITER Gender Identity Female 09/07/2022 5:09 AM INTERNAL COMMUNICATIONS WRITER Sexual Orientation Straight 09/07/2022 5: 09 AM INTERNAL COMMUNICATIONS WRITER documented as of this encounter Plan of Treatment Not on file documented as of this encounter Procedures Procedure Name Priority Date/Time Associated Diagnosis Comments CARDIOLOGY REPORT 09/11/2016 12: 00 AM CDT documented in this encounter Results * CARDIOLOGY REPORT (09/11/2016 12:00 AM CDT) Anatomical Region Laterality Modality Other Narrative 09/11/2016 12:00 AM CDT Ordered by an unspecified provider. us Historical Provider CV CARDIAC [facility] S[facility]TO CASTRO Final Result documented in this encounter Visit Diagnoses Not on filedocumented in this encounter Additional Health Concerns Infection Onset Date Last Indicated Resolved Time COVID: Suspected 09/06/2021 09/06/2021 09/07/2021 3:05 AM INTERNAL COMMUNICATIONS WRITER COVID: Suspected 09/06/2021 09/06/2021 09/07/2021 6:32 AM INTERNAL COMMUNICATIONS WRITER COVID: Suspected 01/13/2022 01/13/2022 01/13/2022 4:30 PM [...] COVID: Suspected 06/06/2023 06/06/2023 06/06/2023 8:20 AM INTERNAL COMMUNICATIONS WRITER COVID: Suspected 06/06/2023 06/06/2023 06/06/2023 5:51 PM INTERNAL COMMUNICATIONS WRITER COVID19 06/06/2023 06/06/2023 06/16/2023 3:05 AM INTERNAL COMMUNICATIONS WRITER COVID: Suspected 12/17/2023 12/17/2023 12/17/2023 12:47 PM CDT COVID: Suspected 09/15/2024 09/15/2024 09/15/2024 10:27 AM CDT COVID19 09/15/2024 09/15/2024 09/25/2024 3:07 AM CDT COVID: Recovered Comment:Added based on recent COVID infection. 09/25/2024 10/10/2024 documented as of this encounter Care Teams Spin Table Operator Relationship Specialty Start Date End Date Dillon Lee MD PCP - General Family Medicine 05/10/18 02/05/19 Jurgen Davis MD [address] [place] [address] [address] [place] [address] PCP - Cardiology Interventional Cardiology 02/06/19 06/17/19 Dillon Lee MD PCP - General Family Medicine 02/24/19 06/17/19 Dillon Lee MD PCP - General Family Medicine 06/18/19 12/27/22 Valeriano Landa MD [address] [place] [address] [address] [place] [address] PCP - General Family Medicine 12/28/22 Tere Quispe, RN CJR Outpatient Resident Services Director 07/25/18 10/30/18 Emily Ryan MA [address] [place] [address] ACO Care Network Security Engineer 08/06/18 08/14/18 Nohemi Ocampo LPN [address] [place] [address] [address] Meat Puller 08/16/18 09/25/18 Jurgen Davis MD [address] [place] [address] [address] [place] [address] Diesel Technician Mechanic Interventional Cardiology 02/25/19 06/17/19 Nohemi Ocampo LPN [address] [place] [address] [address] [place] [address] Meat Puller 02/13/22 documented as of this encounter
--- OUTSIDE RECORDS SUMMARY | 2024-10-13 08:38 | XMS_ITS | Encounter Summary ---
Author Organization [facility] Care Team Providers Care Chemical Laboratory Tester Name Role Phone Dillon Lee MD Primary Care Provider [phone] Tere Quispe RN Unavailable [phone] Emily Ryan MA Unavailable Nohemi Ocampo LPN Unavailable [phone] Jurgen Davis MD Unavailable + [phone] Dillon Lee MD Primary Care Provider [phone] Jurgen Davis MD Unavailable [phone] Dillon Lee MD Primary Care Provider [phone] Nohemi Ocampo LPN Unavailable [phone] Valeriano Landa MD Primary Care Provider [phone] Encounter Details Date Type Department Care Team (Latest Contact Info) Description 05/07/2016 Orders Only [facility]INCON[facility] ProviderFelicity MD [address] [place] [id number] Social History Tobacco Use Types Packs/Day Years Used Date Smoking Tobacco: Never Comments Unknown Sex and Gender Information Value Date Recorded Sex Assigned at Not on file Legal Sex Female 1:11 AM 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 us Historical Provider [facility] Final Result documented in this encounter Visit Diagnoses Not on filedocumented in this encounter Additional Health Concerns Infection Onset Date Last Indicated Resolved Time COVID: Suspected 09/06/2021 09/06/2021 09/07/2021 3:05 AM DESK PENS ASSEMBLER COVID: Suspected 09/06/2021 09/06/2021 09/07/2021 6:32 AM DESK PENS ASSEMBLER COVID: Suspected 01/13/2022 01/13/2022 01/13/2022 4:30 PM [...] COVID: Suspected 06/06/2023 06/06/2023 06/06/2023 8:20 AM DESK PENS ASSEMBLER COVID: Suspected 06/06/2023 06/06/2023 06/06/2023 5:51 PM DESK PENS ASSEMBLER COVID19 06/06/2023 06/06/2023 06/16/2023 3:05 AM DESK PENS ASSEMBLER COVID: Suspected 12/17/2023 12/17/2023 12/17/2023 12:47 PM CDT COVID: Suspected 09/15/2024 09/15/2024 09/15/2024 10:27 AM CDT COVID19 09/15/2024 09/15/2024 09/25/2024 3:07 AM CDT COVID: Recovered Comment:Added based on recent COVID infection. 09/25/2024 10/10/2024 documented as of this encounter Care Teams Chemical Laboratory Tester Relationship Specialty Start Date End Date Dillon Lee MD PCP - General Family Medicine 05/10/18 02/05/19 Jurgen Davis MD [address] [place] [address] [address] [place] [address] PCP - Cardiology Interventional Cardiology 02/06/19 06/17/19 Dillon Lee MD PCP - General Family Medicine 02/24/19 06/17/19 Dillon Lee MD PCP - General Family Medicine 06/18/19 12/27/22 Valeriano Landa MD [address] [place] [address] [address] [place] [address] PCP - General Family Medicine 12/28/22 Tere Quispe RN [facility] Outpatient Brim Welt Sewing Machine Operator 07/25/18 10/30/18 Emily Ryan MA [address] [place] [address] [employer] [facility] Hot Dip Tinning Supervisor 08/06/18 08/14/18 Nohemi Ocampo, TAMMIE [address] [place] [address] [address] [place] [address] Jewel Bearing Maker 08/16/18 09/25/18 Jurgen Davis MD [address] [place] [address] [address] [place] [address] Gluing Machine Offbearer Interventional Cardiology 02/25/19 06/17/19 Nohemi Ocampo LPN [address] [place] [address] [address] [place] [address] Jewel Bearing Maker 02/13/22 documented as of this encounter
--- OUTSIDE RECORDS SUMMARY | 2024-10-13 08:39 | XMS_ITS | Patient Health Record ---
Author Organization 1 OF Tamiko morales [facility] Address [address] [place] [address] Care Team Providers Care Systems Integrator Name Role Phone Dillon Lee MD Primary Care Provider Jaquan Ellis Unavailable Allergies Allergen (clinical drug ingredient) Drug/Non Drug Allergy documented on EMR Reaction Allergy Type Onset Date Status Keflex Unknown Drug Allergy Active Levaquin Unknown Drug Allergy Active codeine Codeine Unknown Drug Allergy Active Penicillin Unknown Drug Allergy Active Reason For Referral No Information Medications Medication SIG (Take, Route, Frequency, Duration) Notes Start Date End Date Status Plavix Active Estradiol 0.1 MG/GM Vaginal for 90 Active Clopidogrel Bisulfate 75 MG Oral for 10 Active Potassium Chloride Tayler ER 10 MEQ Oral for 90 Active Bisoprolol Fumarate 5 MG Oral for 90 Active Dicyclomine HCl 10 MG Oral for 30 Active Ezetimibe 10 MG Oral for 90 Ac tive Famotidine 20 MG TAKE 1 TABLET BY TRISTEN TH EVERY NIGHT AT BEDTIME Oral for 30 Active Furosemide 20 MG Oral for 90 A ctive ALPRAZolam 0.5 MG Oral for 90 Active Social History Tobacco Use: Social History Observation Description Date Details (start date - stop date) Never Smoker NA - NA Tobacco Use/Smoking Question Answer Notes Are you a nonsmoker Problems Problem Type SNOMED Code ICD Code Onset Dates Problem Status W/U Status Risk Notes Problem 34052922 Generalized atherosclerosis (I70.91) Active confirmed Problem Peripheral vascular disease (885572479) PAD (peripheral artery disease) (I73.9) Active confirmed Problem 48230607 Intermittent claudication (I73.9) Active confirmed Problem 39326761 Type 2 diabetes mellitus with other circulatory complication, unspecified whether mcfp insulin use (E11.59) Active confirmed Plan Of Treatment No Information Insurance Providers Payer Name Payer Address Payer Phone Subscriber Number Group Number Insured Name Patient Relationship to Insured Coverage Start Date Coverage End Date Medicare [address] DontekathieMARYCHUY abad [id number] Dee Benoit Self - patient is the insured Medical (General) History Medical History History ICD Code depression, heart disease, blood clot, d iabetes arthritis, asthma, hernia, h ypertension, hyperlipidemia, pneumonia, osteoporosis Surgical History Surgery Date(Month/Year) bilat knee replacement, stent
[2024-10-13 19:54] LABS: Hepatitis B Surface Antigen Negative (Negative)
[2024-10-13 20:00] LABS: HAV RESULT Negative (Negative); Hepatitis B Core IgM Result Negative (Negative)
[2024-10-13 20:12] LABS: Hepatitis C Virus Antibody Negative (Negative)
[2024-10-13 20:36] LABS: Alanine Aminotransferase 25 U/L (6-35); Albumin Level 4.1 g/dL (3.5-5.1); Alkaline Phosphatase 51 U/L (38-126); Anion Gap 5 mmol/L (4-12); Aspartate Amino Transferase 102 U/L (14-36); Bilirubin,Total 0.4 mg/dL (0.2-1.3); Blood Urea Nitrogen 17 mg/dL (7-17); Calcium 9.3 mg/dL (8.4-10.2); Carbon Dioxide 32 mmol/L (22-30); Chloride 104 mmol/L (98-107); Estimated Glomerular Filt Rate 54; Glucose 95 mg/dL (65-110); Potassium 4.6 mmol/L (3.4-5.0); Sodium 141 mmol/L (137-145)
[2024-10-13 22:15] LABS: Hemoglobin A1C 5.9 % (<5.7)
== END 2024-10-13 08:19 | disposition home or self-care (01) ==
LOC: ANHGOSHLAB 08:21
PROVIDERS: PCP Family Medicine; Visit Provider Family Medicine
DX: E78.5 Hyperlipidemia, unspecified (principal); D22.9 Melanocytic nevi, unspecified; R73.03 Prediabetes; R74.01 Elevation of levels of liver transaminase levels
CPT/HCPCS: 36415; 80053; 80074; 83036

== ENCOUNTER 2025-05-21 07:56 | Outpatient (CLI) | payer MEDICARE, OTHER, SELFPAY ==
[2025-05-21 12:54] LABS: Alanine Aminotransferase 24 U/L (6-35); Albumin Level 4.2 g/dL (3.5-5.1); Alkaline Phosphatase 52 U/L (38-126); Anion Gap 7 mmol/L (4-12); Aspartate Amino Transferase 88 U/L (14-36); Bilirubin,Total 0.5 mg/dL (0.2-1.3); Blood Urea Nitrogen 16 mg/dL (7-17); Calcium 9.5 mg/dL (8.4-10.2); Carbon Dioxide 33 mmol/L (22-30); Chloride 101 mmol/L (98-107); Cholesterol 96 mg/dL (0-200); Estimated Glomerular Filt Rate 53; Glucose 92 mg/dL (65-110); HDL Direct 42 mg/dL; Potassium 4.3 mmol/L (3.4-5.0); Sodium 141 mmol/L (137-145); Total Protein 7.0 g/dL (6.3-8.2); Triglycerides 122 mg/dL (<150)
[2025-05-21 13:14] LABS: MALB Creatinine Ratio 10.3 mg/g (0-30)
[2025-05-21 13:33] LABS: Hemoglobin A1C 6.0 % (<5.7)
== END 2025-05-21 07:57 | disposition home or self-care (01) ==
LOC: ANHGOSHLAB 07:57
PROVIDERS: PCP Family Medicine; Visit Provider Family Medicine
DX: I25.10 Atherosclerotic heart disease of native coronary artery without angina pectoris (principal); E11.9 Type 2 diabetes mellitus without complications
CPT/HCPCS: 36415; 80053; 80061; 82043; 83036